=== PATIENT | female | born 1950 | race American Indian/Alaskan Native ===

== ENCOUNTER 2017-08-10 17:07 | Inpatient (IN) | payer MEDICARE ==
[2017-08-10 19:42] LABS: Hematocrit 40.4 % (30.3-42.9); Hemoglobin 13.1 gm/dl (10.1-14.3); Mean Corpuscular HGB Conc 32 % (30-34); Mean Corpuscular Hemoglobin 28 pg (28-32); Mean Corpuscular Volume 86 fl (79-97); Platelet Count 275 K/mm3 (140-440); Red Blood Count 4.69 M/mm3 (3.65-5.03); Red Cell Distribution Width 13.5 % (13.2-15.2)
[2017-08-10 19:53] LABS: Alanine Aminotransferase 13 units/L (7-56); Albumin 3.8 g/dL (3.9-5); BUN/Creatinine Ratio 18; Blood Urea Nitrogen 11 mg/dL (7-17); Calcium 8.9 mg/dL (8.4-10.2); Hemolysis Index 10
[2017-08-10 20:03] LABS: Creatine Kinase MB 2.2 ng/mL (0.0-4.0)
[2017-08-10 20:11] LABS: Free T4 (Free Thyroxine) 2.05 ng/dL (0.76-1.46)
--- NOTE | 2017-08-10 20:13 | Cat Scan Report ---
FINAL REPORT EXAM: CT HEAD/BRAIN WO CON HISTORY: AMS TECHNIQUE: Standard unenhanced CT of the head at 5.0 millimeter axial increments PRIORS: None. FINDINGS: The ventricular system is normal in size and configuration. There is no evidence for parenchymal volume loss. There is no evidence for mass lesion, mass effect, midline shift, acute intracranial hemorrhage, or acute ischemia/ infarction. Visualized paranasal sinuses demonstrates opacification of several right ethmoid air cells. IMPRESSION: No acute intracranial process noted.
--- NOTE | 2017-08-10 20:33 | Emergency Department Report ---
ED Altered Mental Status HPI - General Chief Complaint: Altered Mental Status Stated Complaint: AMS Time Seen by Provider: 08/10/17 19:26 Source: EMS Mode of arrival: Stretcher Limitations: No Limitations - History of Present Illness Initial Comments: 66 year-old female unknown past medical history presents to the hospital via EMS for alteration in mental status. Patient has been nonverbal since yesterday. EMS obtained history from the scene. Family reports that patient is normally alert and oriented 3 and has been altered since yesterday. Patient unable to provide any further history of present illness due to agitation and the fact that she is not speaking. Family is not present in the ED and there is not a working phone number on the demographic sheet. blood glucose 100 - Related Data Allergies Allergy/AdvReac Type Severity Reaction Status Date / Time No Known Allergies Allergy Unverified 08/10/17 18:27 ED Review of Systems ROS: Stated complaint: AMS Other details as noted in HPI Comment: Unobtainable due to pts medical conditions ED Past Medical Hx - Social History Smoking Status: Unknown if ever smoked ED Physical Exam - General Limitations: No Limitations - Other Other exam information: General: Altered Head exam: Atraumatic, normocephalic Eyes exam: Normal appearance ENT: Dry mucous membranes Neck exam: Normal inspection, full range of motion, no meningismus nontender Respiratory exam: Clear to auscultation bilateral, no wheezes, rales, crackles Cardiovascular: Normal rate and rhythm, normal heart sounds Abdomen: Soft, nondistended, and nontender, with normal bowel sounds, no rebound, or guarding Extremity: Full range of motion normal inspection no deformity Back: Normal Inspection, full range of motion, no tenderness Neurologic: Patient holds eyes closed, will not speak, would not reliably follow commands. Moves all extremities equally without focal deficits. Sensation grossly intact. Psychiatric: Patient seen to be mouthing words to himself but not making any noise. Positive agitation and mild restlessness. Positive facial grimace. Skin: Warm, dry, intact ED Course Vital Signs 08/10/17 19:28 Temperature 98.9 F Pulse Rate 76 Respiratory 18 Rate Blood Pressure 156/94 [Left] O2 Sat by Pulse 99 Oximetry - Lab Data Result diagrams: 08/10/17 19:18 08/10/17 19:18 Lab Results 02/13/18 02/13/18 02/13/18 Range/Units 19:18 19:18 19:18 WBC 4.9 (4.5-11.0) K/mm3 RBC 4.69 (3.65-5.03) M/mm3 Hgb 13.1 (10.1-14.3) gm/dl Hct 40.4 (30.3-42.9) % MCV 86 (79-97) fl MCH 28 (28-32) pg MCHC 32 (30-34) % RDW 13.5 (13.2-15.2) % Plt Count 275 (140-440) K/mm3 [place] % (Auto) Sausage Stuffer Sodium 142 (137-145) mmol/L Potassium 3.4 L (3.6-5.0) mmol/L Chloride 102.8 (98-107) mmol/L Carbon Dioxide 24 (22-30) mmol/L Anion Gap 19 mmol/L BUN 11 (7-17) mg/dL Creatinine 0.6 L (0.7-1.2) mg/dL Estimated GFR > 60 ml/min BUN/Creatinine Ratio 18 % Glucose 109 H (65-100) mg/dL Calcium 8.9 (8.4-10.2) mg/dL Magnesium (1.7-2.3) mg/dL Total Bilirubin 0.50 (0.1-1.2) mg/dL AST 20 (5-40) units/L ALT 13 (7-56) units/L Alkaline Phosphatase 67 (35-129) units/L Ammonia (25-60) umol/L Total Creatine Kinase (30-135) units/L CK-MB (CK-2) (0.0-4.0) ng/mL CK-MB (CK-2) Rel Index (0-4) Troponin T (0.00-0.029) ng/mL Total Protein 7.2 (6.3-8.2) g/dL Albumin 3.8 L (3.9-5) g/dL Albumin/Globulin Ratio 1.1 % TSH (0.270-4.200) mlU/mL Free T4 (0.76-1.46) ng/dL Urine Color (Yellow) Urine Turbidity (Clear) Urine pH (5.0-7.0) Ur Specific [place] (1.003-1.030) Urine Protein (Negative) mg/dL Urine Glucose (UA) (Negative) mg/dL Urine Ketones (Negative) mg/dL Urine Blood (Negative) Urine Nitrite (Negative) Urine Bilirubin (Negative) Urine Urobilinogen (<2.0) mg/dL Ur Leukocyte Esterase (Negative) Urine WBC (Auto) (0.0-6.0) /HPF Urine RBC (Auto) (0.0-6.0) /HPF Urine Mucus /HPF Salicylates (2.8-20.0) mg/dL Urine Opiates Screen Urine Methadone Screen Acetaminophen (10.0-30.0) ug/mL Ur Barbiturates Screen Ur Phencyclidine Scrn Ur Amphetamines Screen U Benzodiazepines Scrn Urine Cocaine Screen U Marijuana (THC) Screen Drugs of Abuse Note Plasma/Serum Alcohol < 0.01 (0-0.07) % 08/10/17 08/10/17 08/10/17 Range/Units 19:24 19:24 19:24 WBC (4.5-11.0) K/mm3 RBC (3.65-5.03) M/mm3 Hgb (10.1-14.3) gm/dl Hct (30.3-42.9) % MCV (79-97) fl MCH (28-32) pg MCHC (30-34) % RDW (13.2-15.2) % Plt Count (140-440) K/mm3 [place] % (Auto) Sodium (137-145) mmol/L Potassium (3.6-5.0) mmol/L Chloride (98-107) mmol/L Carbon Dioxide (22-30) mmol/L Anion Gap mmol/L BUN (7-17) mg/dL Creatinine (0.7-1.2) mg/dL Estimated GFR ml/min BUN/Creatinine Ratio % Glucose (65-100) mg/dL Calcium (8.4-10.2) mg/dL Magnesium (1.7-2.3) mg/dL Total Bilirubin (0.1-1.2) mg/dL AST (5-40) units/L ALT (7-56) units/L Alkaline Phosphatase (35-129) units/L Ammonia 39.0 (25-60) umol/L Total Creatine Kinase (30-135) units/L CK-MB (CK-2) (0.0-4.0) ng/mL CK-MB (CK-2) Rel Index (0-4) Troponin T (0.00-0.029) ng/mL Total Protein (6.3-8.2) g/dL Albumin (3.9-5) g/dL Albumin/Globulin Ratio % TSH 2.690 (0.270-4.200) mlU/mL Free T4 2.05 H (0.76-1.46) ng/dL Urine Color (Yellow) Urine Turbidity (Clear) Urine pH (5.0-7.0) Ur Specific [place] (1.003-1.030) Urine Protein (Negative) mg/dL Urine Glucose (UA) (Negative) mg/dL Urine Ketones (Negative) mg/dL Urine Blood (Negative) Urine Nitrite (Negative) Urine Bilirubin (Negative) Urine Urobilinogen (<2.0) mg/dL Ur Leukocyte Esterase (Negative) Urine WBC (Auto) (0.0-6.0) /HPF Urine RBC (Auto) (0.0-6.0) /HPF Urine Mucus /HPF Salicylates < 0.3 L (2.8-20.0) mg/dL Urine Opiates Screen Urine Methadone Screen Acetaminophen (10.0-30.0) ug/mL Ur Barbiturates Screen Ur Phencyclidine Scrn Ur Amphetamines Screen U Benzodiazepines Scrn Urine Cocaine Screen U Marijuana (THC) Screen Drugs of Abuse Note Plasma/Serum Alcohol (0-0.07) % 08/10/17 08/10/17 08/10/17 Range/Units 19:24 19:24 19:30 WBC (4.5-11.0) K/mm3 RBC (3.65-5.03) M/mm3 Hgb (10.1-14.3) gm/dl Hct (30.3-42.9) % MCV (79-97) fl MCH (28-32) pg MCHC (30-34) % RDW (13.2-15.2) % Plt Count (140-440) K/mm3 [place] % (Auto) Sodium (137-145) mmol/L Potassium (3.6-5.0) mmol/L Chloride (98-107) mmol/L Carbon Dioxide (22-30) mmol/L Anion Gap mmol/L BUN (7-17) mg/dL Creatinine (0.7-1.2) mg/dL Estimated GFR ml/min BUN/Creatinine Ratio % Glucose (65-100) mg/dL Calcium (8.4-10.2) mg/dL Magnesium 2.30 (1.7-2.3) mg/dL Total Bilirubin (0.1-1.2) mg/dL AST (5-40) units/L ALT (7-56) units/L Alkaline Phosphatase (35-129) units/L Ammonia (25-60) umol/L Total Creatine Kinase 119 (30-135) units/L CK-MB (CK-2) 2.2 (0.0-4.0) ng/mL CK-MB (CK-2) Rel Index 1.8 (0-4) Troponin T < 0.010 (0.00-0.029) ng/mL Total Protein (6.3-8.2) g/dL Albumin (3.9-5) g/dL Albumin/Globulin Ratio % TSH (0.270-4.200) mlU/mL Free T4 (0.76-1.46) ng/dL Urine Color (Yellow) Urine Turbidity (Clear) Urine pH (5.0-7.0) Ur Specific [place] (1.003-1.030) Urine Protein (Negative) mg/dL Urine Glucose (UA) (Negative) mg/dL Urine Ketones (Negative) mg/dL Urine Blood (Negative) Urine Nitrite (Negative) Urine Bilirubin (Negative) Urine Urobilinogen (<2.0) mg/dL Ur Leukocyte Esterase (Negative) Urine WBC (Auto) (0.0-6.0) /HPF Urine RBC (Auto) (0.0-6.0) /HPF Urine Mucus /HPF Salicylates (2.8-20.0) mg/dL Urine Opiates Screen Urine Methadone Screen Acetaminophen < 15.0 (10.0-30.0) ug/mL Ur Barbiturates Screen Ur Phencyclidine Scrn Ur Amphetamines Screen U Benzodiazepines Scrn Urine Cocaine Screen U Marijuana (THC) Screen Drugs of Abuse Note Plasma/Serum Alcohol (0-0.07) % 08/10/17 08/10/17 Range/Units 20:42 20:42 WBC (4.5-11.0) K/mm3 RBC (3.65-5.03) M/mm3 Hgb (10.1-14.3) gm/dl Hct (30.3-42.9) % MCV (79-97) fl MCH (28-32) pg MCHC (30-34) % RDW (13.2-15.2) % Plt Count (140-440) K/mm3 [place] % (Auto) Sodium (137-145) mmol/L Potassium (3.6-5.0) mmol/L Chloride (98-107) mmol/L Carbon Dioxide (22-30) mmol/L Anion Gap mmol/L BUN (7-17) mg/dL Creatinine (0.7-1.2) mg/dL Estimated GFR ml/min BUN/Creatinine Ratio % Glucose (65-100) mg/dL Calcium (8.4-10.2) mg/dL Magnesium (1.7-2.3) mg/dL Total Bilirubin (0.1-1.2) mg/dL AST (5-40) units/L ALT (7-56) units/L Alkaline Phosphatase (35-129) units/L Ammonia (25-60) umol/L Total Creatine Kinase (30-135) units/L CK-MB (CK-2) (0.0-4.0) ng/mL CK-MB (CK-2) Rel Index (0-4) Troponin T (0.00-0.029) ng/mL Total Protein (6.3-8.2) g/dL Albumin (3.9-5) g/dL Albumin/Globulin Ratio % TSH (0.270-4.200) mlU/mL Free T4 (0.76-1.46) ng/dL Urine Color Yellow (Yellow) Urine Turbidity Clear (Clear) Urine pH 7.0 (5.0-7.0) Ur Specific [place] 1.019 (1.003-1.030) Urine Protein 100 mg/dl (Negative) mg/dL Urine Glucose (UA) Neg (Negative) mg/dL Urine Ketones 20 (Negative) mg/dL Urine Blood Neg (Negative) Urine Nitrite Neg (Negative) Urine Bilirubin Neg (Negative) Urine Urobilinogen < 2.0 (<2.0) mg/dL Ur Leukocyte Esterase Neg (Negative) Urine WBC (Auto) 2.0 (0.0-6.0) /HPF Urine RBC (Auto) 7.0 (0.0-6.0) /HPF Urine Mucus 3+ /HPF Salicylates (2.8-20.0) mg/dL Urine Opiates Screen Presumptive negative Urine Methadone Screen Presumptive negative Acetaminophen (10.0-30.0) ug/mL Ur Barbiturates Screen Presumptive negative Ur Phencyclidine Scrn Presumptive negative Ur Amphetamines Screen Presumptive negative U Benzodiazepines Scrn Presumptive negative Urine Cocaine Screen Presumptive negative U Marijuana (THC) Screen Presumptive negative Drugs of Abuse Note Disclamer Plasma/Serum Alcohol (0-0.07) % - Radiology Data Radiology results: report reviewed (ct head: naf) - Medical Decision Making Patient presented like a demented patient. Per EMS family assisted the patient was alert and oriented 3 at baseline. Initial ED workup unremarkable without acute cause of alteration in mental status. I am unable to contact family at this time due to incorrect phone number on demographic sheet. She have to be admitted at this time for presumed alteration in mental status IV potassium order for mild hypokalemia Patient likely has mild dehydration as indicated by elevated specific gravity and ketones in urine - Differential Diagnosis dementia, delirium, encephalopathy, infection, CVA Critical Care Time: No Critical care attestation.: If time is entered above; I have spent that time in minutes in the direct care of this critically ill patient, excluding procedure time. ED Disposition Clinical Impression: Altered mental status, Hypokalemia Disposition: 09 OP ADMIT IP TO THIS HOSP Is pt being admited?: Yes Condition: Stable Time of Disposition: 21:24 (Dr Reis/hosp)
[2017-08-10 21:08] LABS: Bilirubin,Urine NEG (Negative); Blood,Urine NEG (Negative); Color,Urine Yellow (Yellow); Mucus,Urine 3+ /HPF; Urobilinogen,Urine < 2.0 mg/dL (<2.0)
[2017-08-10 21:19] LABS: Amphetamine Screen,Urine PRESUMPTIVE NEGATIVE; Benzodiazepines Screen,Urine PRESUMPTIVE NEGATIVE; Cannabinoid Screen,Urine PRESUMPTIVE NEGATIVE; Cocaine Screen,Urine PRESUMPTIVE NEGATIVE; Methadone Screen,Urine PRESUMPTIVE NEGATIVE; Opiate Screen,Urine PRESUMPTIVE NEGATIVE
[2017-08-10 21:33] LABS: Basophils % (Manual) 0 % (0.0-1.8); Eosinophils % (Manual) 0 % (0.0-4.3); Platelet Estimate Consistent w Auto; Total Cells Counted 100
[2017-08-10] MEDS ORDERED: ZOFRAN IV PRN (22:27)
[2017-08-10] MEDS ORDERED: DULCOLAX PR PRN (22:27)
[2017-08-10] MEDS ORDERED: MILK OF MAGNESIA PO PRN (22:27)
--- NOTE | 2017-08-10 22:27 | History and Physical Report ---
History of Present Illness Date of examination: 08/10/17 History of present illness: 66 year-old lady with a history of catatonia was brought to the emergency room because she is not eating since yesterday. Patient is nonverbal, history is per the caregiver. Review of systems unobtainable PAST MEDICAL HISTORY:catonia PAST SURGICAL HISTORY: none FAMILY HISTORY:hypertension SOCIAL HISTORY: Denies alcohol, tobacco, drugs Medications and Allergies Allergies Allergy/AdvReac Type Severity Reaction Status Date / Time No Known Allergies Allergy Unverified 08/10/17 18:27 Home Medications Medication Instructions Recorded Confirmed Last Taken Type No Known Home Medications [No 08/11/17 08/11/17 Unknown History Reported Home Medications] Active Meds: Active Medications Potassium Chloride (Kcl 10meq/100ml) 10 meq in 100 mls @ 100 mls/hr IV Q1H ELIEL Stop: 08/10/17 23:59 Potassium Chloride 10 meq/ (Sodium Chloride) 105 mls @ 105 mls/hr IV Q1H ELIEL Stop: 08/10/17 23:59 Exam - Physical Exam Narrative exam: Gen. appearance: Patient lying in bed, no apparent distress HEENT: Normocephalic, atraumatic, pupils equally round and reactive to light, extraocular movement intact, and no sclericterus,. No JVD or thyromegaly or nodule,neck supple, no carotid bruit ,mucous membranes moist, no exudate or erythema Heart: S1, S2, regular rate and rhythm Lungs: Clear to auscultation bilaterally, breathing comfortable Abdomen: Positive bowel sounds, nontender, nondistended, no organomegaly Extremity: No edema, cyanosis, clubbing Skin: No rash, nodules, warm, dry Neuro: Difficult to assess - Constitutional Vitals: Temp Pulse Resp BP Pulse Ox 98.9 F 76 18 156/94 99 08/10/17 19:28 08/10/17 19:28 08/10/17 19:28 08/10/17 19:28 08/10/17 19:28 Results - Labs CBC & Chem 7: 08/18/17 04:23 08/18/17 04:23 Labs: Abnormal lab results 08/10/17 08/10/17 08/10/17 Range/Units 19:18 19:18 19:24 Monocytes % (Manual) 9.0 H (0.0-7.3) % Potassium 3.4 L (3.6-5.0) mmol/L Creatinine 0.6 L (0.7-1.2) mg/dL Glucose 109 H (65-100) mg/dL Albumin 3.8 L (3.9-5) g/dL Free T4 2.05 H (0.76-1.46) ng/dL Salicylates (2.8-20.0) mg/dL 08/10/17 Range/Units 19:24 Monocytes % (Manual) (0.0-7.3) % Potassium (3.6-5.0) mmol/L Creatinine (0.7-1.2) mg/dL Glucose (65-100) mg/dL Albumin (3.9-5) g/dL Free T4 (0.76-1.46) ng/dL Salicylates < 0.3 L (2.8-20.0) mg/dL - Imaging and Cardiology CT Scan - head: report reviewed Assessment and Plan Assessment Failure to thrive Hypokalemia [place]at[place] Plan Admit to medicine Start IV fluids, encourage oral intake, DVT prophylaxis Replete potassium
[2017-08-10] MEDS: KCL 10 MEQ in NACL 0.9% 100 ML IV SCH (23:12)
[2017-08-11] MEDS: KCL 10MEQ/100ML 10 MEQ/100 ML BAG IV SCH ×2 (01:41→01:46)
[2017-08-11] MEDS: KCL 10 MEQ in NACL 0.9% 100 ML IV SCH (01:43)
[2017-08-11] MEDS ORDERED: KCL 20 MEQ in NACL 0.9% 250ML 250 ML IV ONE (02:00)
[2017-08-11] MEDS ORDERED: KCL 10MEQ/100ML 10 MEQ/100 ML BAG IV SCH (02:00)
[2017-08-11] MEDS: NACL 0.9% 1000 ML 1,000 ML IV SCH ×2 (02:32→17:59)
[2017-08-11 05:19] LABS: Basophils % (Auto) 0.2 % (0.0-1.8); Eosinophils % (Auto) 0.3 % (0.0-4.3); Hematocrit 39.6 % (30.3-42.9); Hemoglobin 13.1 gm/dl (10.1-14.3); Lymphocytes # (Auto) 1.7 K/mm3 (1.2-5.4); Lymphocytes % (Auto) 27.9 % (13.4-35.0); Mean Corpuscular HGB Conc 33 % (30-34); Mean Corpuscular Hemoglobin 29 pg (28-32); Mean Corpuscular Volume 87 fl (79-97); Monocytes # (Auto) 0.9 K/mm3 (0.0-0.8); Platelet Count 279 K/mm3 (140-440); Red Blood Count 4.58 M/mm3 (3.65-5.03); Red Cell Distribution Width 13.7 % (13.2-15.2)
[2017-08-11 05:37] LABS: BUN/Creatinine Ratio 13; Blood Urea Nitrogen 9 mg/dL (7-17); Calcium 8.5 mg/dL (8.4-10.2); Hemolysis Index 18
[2017-08-11] MEDS: LOVENOX SUB-Q SCH (11:57)
[2017-08-11] MEDS ORDERED: PNEUMOVAX 23 IM ONE (12:00)
[2017-08-11] MEDS ORDERED: Fluarix Quad 2017-2018(36 MOS+ IM ONE (12:00)
--- NOTE | 2017-08-11 15:53 | Progress Note ---
<KYLE LOPEZ - Last Filed: 08/11/17 15:39> Assessment and Plan Assessment and plan: 66 year old AA woman brought to the emergency department due to change in mental status. She lives with her sister and niece, who states that she started having loud conversations by herself and wanted her to be evaluated. She was a patient at [facility] but was discharged around February 2017. Family is unsure of mental health diagnoses or medications which she has not been taking. Records requested. Acute encephalopathy/ psychosis?? etiology unknown, mental health records requested Hypokalemia Replenished, Now resolved Mild protein malnutrition consult to bail bonding agent DVT prophylaxis Lovenox History Interval history: Patient seen and examined with sister and niece at bedside. She is confused and having hallucinatory conversations. She appears to be in no acute distress. Labs and nursing notes reviewed. Hospitalist Physical - Constitutional Vitals: Temp Pulse Resp BP Pulse Ox 98.9 F 78 18 143/85 96 08/11/17 03:54 08/11/17 03:54 08/11/17 03:54 08/11/17 03:54 08/11/17 12:00 General appearance: Present: no acute distress, well-nourished - EENT Eyes: Present: PERRL, EOM intact ENT: hearing intact, clear oral mucosa - Neck Neck: Present: supple, normal ROM - Respiratory Respiratory effort: normal - Cardiovascular Rhythm: regular Heart Sounds: Present: S1 & S2 - Extremities Extremities: no ischemia, No edema - Abdominal General gastrointestinal: soft, non-tender, non-distended - Integumentary Integumentary: Present: clear, warm, dry - Psychiatric Psychiatric: no appropriate mood/affect, no intact judgment & insight, cooperative - Neurologic Neurologic: CNII-XII intact, moves all extremities - Allied Health Allied health notes reviewed: nursing Results - Labs CBC & Chem 7: 08/11/17 04:35 08/11/17 04:35 Labs: Laboratory Last Values WBC 6.2 K/mm3 (4.5-11.0) 08/11/17 04:35 RBC 4.58 M/mm3 (3.65-5.03) 08/11/17 04:35 Hgb 13.1 gm/dl (10.1-14.3) 08/11/17 04:35 Hct 39.6 % (30.3-42.9) 08/11/17 04:35 MCV 87 fl (79-97) 08/11/17 04:35 MCH 29 pg (28-32) 08/11/17 04:35 MCHC 33 % (30-34) 08/11/17 04:35 RDW 13.7 % (13.2-15.2) 08/11/17 04:35 Plt Count 279 K/mm3 (140-440) 08/11/17 04:35 Lymph % (Auto) 27.9 % (13.4-35.0) 08/11/17 04:35 [place] % (Auto) 15.0 % (0.0-7.3) H 08/11/17 04:35 Eos % (Auto) 0.3 % (0.0-4.3) 08/11/17 04:35 Baso % (Auto) 0.2 % (0.0-1.8) 08/11/17 04:35 Lymph # 1.7 K/mm3 (1.2-5.4) 08/11/17 04:35 [place] # 0.9 K/mm3 (0.0-0.8) H 08/11/17 04:35 Eos # 0.0 K/mm3 (0.0-0.4) 08/11/17 04:35 Baso # 0.0 K/mm3 (0.0-0.1) 08/11/17 04:35 Add Manual Diff Complete 08/10/17 19:18 Total Counted 100 08/10/17 19:18 Seg Neutrophils % 56.6 % (40.0-70.0) 08/11/17 04:35 Seg Neuts % (Manual) 55.0 % (40.0-70.0) 08/10/17 19:18 Band Neutrophils % 1.0 % 08/10/17 19:18 Lymphocytes % (Manual) 35.0 % (13.4-35.0) 08/10/17 19:18 Reactive Lymphs % (Man) 0 % 08/10/17 19:18 Monocytes % (Manual) 9.0 % (0.0-7.3) H 08/10/17 19:18 Eosinophils % (Manual) 0 % (0.0-4.3) 08/10/17 19:18 Basophils % (Manual) 0 % (0.0-1.8) 08/10/17 19:18 Metamyelocytes % 0 % 08/10/17 19:18 Myelocytes % 0 % 08/10/17 19:18 Promyelocytes % 0 % 08/10/17 19:18 Blast Cells % 0 % 08/10/17 19:18 Nucleated RBC % Not Reportable 08/10/17 19:18 Seg Neutrophils # 3.5 K/mm3 (1.8-7.7) 08/11/17 04:35 Seg Neutrophils # Man 2.7 K/mm3 (1.8-7.7) 08/10/17 19:18 Band Neutrophils # 0.0 K/mm3 08/10/17 19:18 Lymphocytes # (Manual) 1.7 K/mm3 (1.2-5.4) 08/10/17 19:18 Abs React Lymphs (Man) 0.0 K/mm3 08/10/17 19:18 Monocytes # (Manual) 0.4 K/mm3 (0.0-0.8) 08/10/17 19:18 Eosinophils # (Manual) 0.0 K/mm3 (0.0-0.4) 08/10/17 19:18 Basophils # (Manual) 0.0 K/mm3 (0.0-0.1) 08/10/17 19:18 Metamyelocytes # 0.0 K/mm3 08/10/17 19:18 Myelocytes # 0.0 K/mm3 08/10/17 19:18 Promyelocytes # 0.0 K/mm3 08/10/17 19:18 Blast Cells # 0.0 K/mm3 08/10/17 19:18 WBC Morphology Not Reportable 08/10/17 19:18 Hypersegmented Neuts Not Reportable 08/10/17 19:18 Hyposegmented Neuts Not Reportable 08/10/17 19:18 Hypogranular Neuts Not Reportable 08/10/17 19:18 Smudge Cells Not Reportable 08/10/17 19:18 Toxic Granulation Not Reportable 08/10/17 19:18 Toxic Vacuolation Not Reportable 08/10/17 19:18 Dohle Bodies Not Reportable 08/10/17 19:18 Pelger-Huet Anomaly Not Reportable 08/10/17 19:18 Comfort Rods Not Reportable 08/10/17 19:18 Platelet Estimate Consistent w auto 08/10/17 19:18 Clumped Platelets Not Reportable 08/10/17 19:18 Plt Clumps, EDTA Not Reportable 08/10/17 19:18 Large Platelets Not Reportable 08/10/17 19:18 Giant Platelets Not Reportable 08/10/17 19:18 Platelet Satelliting Not Reportable 08/10/17 19:18 Plt Morphology Comment Not Reportable 08/10/17 19:18 RBC Morphology Not Reportable 08/10/17 19:18 Dimorphic RBCs Not Reportable 08/10/17 19:18 Polychromasia Not Reportable 08/10/17 19:18 Hypochromasia Not Reportable 08/10/17 19:18 Poikilocytosis Not Reportable 08/10/17 19:18 Anisocytosis Not Reportable 08/10/17 19:18 Microcytosis Not Reportable 08/10/17 19:18 Macrocytosis Not Reportable 08/10/17 19:18 Spherocytes Not Reportable 08/10/17 19:18 Pappenheimer Bodies Not Reportable 08/10/17 19:18 Sickle Cells Not Reportable 08/10/17 19:18 Target Cells Not Reportable 08/10/17 19:18 Tear Drop Cells Not Reportable 08/10/17 19:18 Ovalocytes Not Reportable 08/10/17 19:18 Helmet Cells Not Reportable 08/10/17 19:18 [place] Bodies Not Reportable 08/10/17 19:18 [place] Rings Not Reportable 08/10/17 19:18 Nallely Cells Not Reportable 08/10/17 19:18 Bite Cells Not Reportable 08/10/17 19:18 Crenated Cell Not Reportable 08/10/17 19:18 Elliptocytes Not Reportable 08/10/17 19:18 Acanthocytes (Spur) Not Reportable 08/10/17 19:18 Rouleaux Not Reportable 08/10/17 19:18 Hemoglobin C Crystals Not Reportable 08/10/17 19:18 Schistocytes Not Reportable 08/10/17 19:18 Malaria parasites Not Reportable 08/10/17 19:18 Joaquín Bodies Not Reportable 08/10/17 19:18 Hem Pathologist Commnt No 08/10/17 19:18 Sodium 145 mmol/L (137-145) 08/11/17 04:35 Potassium 4.9 mmol/L (3.6-5.0) D 08/11/17 04:35 Chloride 107.7 mmol/L (98-107) H 08/11/17 04:35 Carbon Dioxide 22 mmol/L (22-30) 08/11/17 04:35 Anion Gap 20 mmol/L 08/11/17 04:35 BUN 9 mg/dL (7-17) 08/11/17 04:35 Creatinine 0.7 mg/dL (0.7-1.2) 08/11/17 04:35 Estimated GFR > 60 ml/min 08/11/17 04:35 BUN/Creatinine Ratio 13 % 08/11/17 04:35 Glucose 107 mg/dL (65-100) H 08/11/17 04:35 Calcium 8.5 mg/dL (8.4-10.2) 08/11/17 04:35 Magnesium 2.30 mg/dL (1.7-2.3) 08/10/17 19:30 Total Bilirubin 0.50 mg/dL (0.1-1.2) 08/10/17 19:18 AST 20 units/L (5-40) 08/10/17 19:18 ALT 13 units/L (7-56) 08/10/17 19:18 Alkaline Phosphatase 67 units/L (35-129) 08/10/17 19:18 Ammonia 39.0 umol/L (25-60) 08/10/17 19:24 Total Creatine Kinase 119 units/L (30-135) 08/10/17 19:24 CK-MB (CK-2) 2.2 ng/mL (0.0-4.0) 08/10/17 19:24 CK-MB (CK-2) Rel Index 1.8 (0-4) 08/10/17 19:24 Troponin T < 0.010 ng/mL (0.00-0.029) 08/10/17 19:24 Total Protein 7.2 g/dL (6.3-8.2) 08/10/17 19:18 Albumin 3.8 g/dL (3.9-5) L 08/10/17 19:18 Albumin/Globulin Ratio 1.1 % 08/10/17 19:18 TSH 2.690 mlU/mL (0.270-4.200) 08/10/17 19:24 Free T4 2.05 ng/dL (0.76-1.46) H 08/10/17 19:24 Urine Color Yellow (Yellow) 08/10/17 20:42 Urine Turbidity Clear (Clear) 08/10/17 20:42 Urine pH 7.0 (5.0-7.0) 08/10/17 20:42 Ur Specific [place] 1.019 (1.003-1.030) 08/10/17 20:42 Urine Protein 100 mg/dl mg/dL (Negative) 08/10/17 20:42 Urine Glucose (UA) Neg mg/dL (Negative) 08/10/17 20:42 Urine Ketones 20 mg/dL (Negative) 08/10/17 20:42 Urine Blood Neg (Negative) 08/10/17 20:42 Urine Nitrite Neg (Negative) 08/10/17 20:42 Urine Bilirubin Neg (Negative) 08/10/17 20:42 Urine Urobilinogen < 2.0 mg/dL (<2.0) 08/10/17 20:42 Ur Leukocyte Esterase Neg (Negative) 08/10/17 20:42 Urine WBC (Auto) 2.0 /HPF (0.0-6.0) 08/10/17 20:42 Urine RBC (Auto) 7.0 /HPF (0.0-6.0) 08/10/17 20:42 Urine Mucus 3+ /HPF 08/10/17 20:42 Salicylates < 0.3 mg/dL (2.8-20.0) L 08/10/17 19:24 Urine Opiates Screen Presumptive negative 08/10/17 20:42 Urine Methadone Screen Presumptive negative 08/10/17 20:42 Acetaminophen < 15.0 ug/mL (10.0-30.0) 08/10/17 19:24 Ur Barbiturates Screen Presumptive negative 08/10/17 20:42 Ur Phencyclidine Scrn Presumptive negative 08/10/17 20:42 Ur Amphetamines Screen Presumptive negative 08/10/17 20:42 U Benzodiazepines Scrn Presumptive negative 08/10/17 20:42 Urine Cocaine Screen Presumptive negative 08/10/17 20:42 U Marijuana (THC) Screen Presumptive negative 08/10/17 20:42 Drugs of Abuse Note Disclamer 08/10/17 20:42 Plasma/Serum Alcohol < 0.01 % (0-0.07) 08/10/17 19:18 <OPAL LESTER M - Last Filed: 08/12/17 16:01> Assessment and Plan Assessment and plan: I saw and evaluated the patient. I agree with the findings and the plan of care as documented in the PA's note. Hospitalist Physical - Constitutional Vitals: Temp Pulse Resp BP Pulse Ox 99.4 F 96 H 20 150/79 96 08/12/17 14:00 08/12/17 14:00 08/12/17 14:00 08/12/17 14:00 08/12/17 14:00 Results - Labs CBC & Chem 7: 08/11/17 04:35 08/11/17 04:35 Labs: Laboratory Last Values WBC 6.2 K/mm3 (4.5-11.0) 08/11/17 04:35 RBC 4.58 M/mm3 (3.65-5.03) 08/11/17 04:35 Hgb 13.1 gm/dl (10.1-14.3) 08/11/17 04:35 Hct 39.6 % (30.3-42.9) 08/11/17 04:35 MCV 87 fl (79-97) 08/11/17 04:35 MCH 29 pg (28-32) 08/11/17 04:35 MCHC 33 % (30-34) 08/11/17 04:35 RDW 13.7 % (13.2-15.2) 08/11/17 04:35 Plt Count 279 K/mm3 (140-440) 08/11/17 04:35 Lymph % (Auto) 27.9 % (13.4-35.0) 08/11/17 04:35 [place] % (Auto) 15.0 % (0.0-7.3) H 08/11/17 04:35 Eos % (Auto) 0.3 % (0.0-4.3) 08/11/17 04:35 Baso % (Auto) 0.2 % (0.0-1.8) 08/11/17 04:35 Lymph # 1.7 K/mm3 (1.2-5.4) 08/11/17 04:35 [place] # 0.9 K/mm3 (0.0-0.8) H 08/11/17 04:35 Eos # 0.0 K/mm3 (0.0-0.4) 08/11/17 04:35 Baso # 0.0 K/mm3 (0.0-0.1) 08/11/17 04:35 Add Manual Diff Complete 08/10/17 19:18 Total Counted 100 08/10/17 19:18 Seg Neutrophils % 56.6 % (40.0-70.0) 08/11/17 04:35 Seg Neuts % (Manual) 55.0 % (40.0-70.0) 08/10/17 19:18 Band Neutrophils % 1.0 % 08/10/17 19:18 Lymphocytes % (Manual) 35.0 % (13.4-35.0) 08/10/17 19:18 Reactive Lymphs % (Man) 0 % 08/10/17 19:18 Monocytes % (Manual) 9.0 % (0.0-7.3) H 08/10/17 19:18 Eosinophils % (Manual) 0 % (0.0-4.3) 08/10/17 19:18 Basophils % (Manual) 0 % (0.0-1.8) 08/10/17 19:18 Metamyelocytes % 0 % 08/10/17 19:18 Myelocytes % 0 % 08/10/17 19:18 Promyelocytes % 0 % 08/10/17 19:18 Blast Cells % 0 % 08/10/17 19:18 Nucleated RBC % Not Reportable 08/10/17 19:18 Seg Neutrophils # 3.5 K/mm3 (1.8-7.7) 08/11/17 04:35 Seg Neutrophils # Man 2.7 K/mm3 (1.8-7.7) 08/10/17 19:18 Band Neutrophils # 0.0 K/mm3 08/10/17 19:18 Lymphocytes # (Manual) 1.7 K/mm3 (1.2-5.4) 08/10/17 19:18 Abs React Lymphs (Man) 0.0 K/mm3 08/10/17 19:18 Monocytes # (Manual) 0.4 K/mm3 (0.0-0.8) 08/10/17 19:18 Eosinophils # (Manual) 0.0 K/mm3 (0.0-0.4) 08/10/17 19:18 Basophils # (Manual) 0.0 K/mm3 (0.0-0.1) 08/10/17 19:18 Metamyelocytes # 0.0 K/mm3 08/10/17 19:18 Myelocytes # 0.0 K/mm3 08/10/17 19:18 Promyelocytes # 0.0 K/mm3 08/10/17 19:18 Blast Cells # 0.0 K/mm3 08/10/17 19:18 WBC Morphology Not Reportable 08/10/17 19:18 Hypersegmented Neuts Not Reportable 08/10/17 19:18 Hyposegmented Neuts Not Reportable 08/10/17 19:18 Hypogranular Neuts Not Reportable 08/10/17 19:18 Smudge Cells Not Reportable 08/10/17 19:18 Toxic Granulation Not Reportable 08/10/17 19:18 Toxic Vacuolation Not Reportable 08/10/17 19:18 Dohle Bodies Not Reportable 08/10/17 19:18 Pelger-Huet Anomaly Not Reportable 08/10/17 19:18 Comfort Rods Not Reportable 08/10/17 19:18 Platelet Estimate Consistent w auto 08/10/17 19:18 Clumped Platelets Not Reportable 08/10/17 19:18 Plt Clumps, EDTA Not Reportable 08/10/17 19:18 Large Platelets Not Reportable 08/10/17 19:18 Giant Platelets Not Reportable 08/10/17 19:18 Platelet Satelliting Not Reportable 08/10/17 19:18 Plt Morphology Comment Not Reportable 08/10/17 19:18 RBC Morphology Not Reportable 08/10/17 19:18 Dimorphic RBCs Not Reportable 08/10/17 19:18 Polychromasia Not Reportable 08/10/17 19:18 Hypochromasia Not Reportable 08/10/17 19:18 Poikilocytosis Not Reportable 08/10/17 19:18 Anisocytosis Not Reportable 08/10/17 19:18 Microcytosis Not Reportable 08/10/17 19:18 Macrocytosis Not Reportable 08/10/17 19:18 Spherocytes Not Reportable 08/10/17 19:18 Pappenheimer Bodies Not Reportable 08/10/17 19:18 Sickle Cells Not Reportable 08/10/17 19:18 Target Cells Not Reportable 08/10/17 19:18 Tear Drop Cells Not Reportable 08/10/17 19:18 Ovalocytes Not Reportable 08/10/17 19:18 Helmet Cells Not Reportable 08/10/17 19:18 [place] Bodies Not Reportable 08/10/17 19:18 [place] Rings Not Reportable 08/10/17 19:18 Nallely Cells Not Reportable 08/10/17 19:18 Bite Cells Not Reportable 08/10/17 19:18 Crenated Cell Not Reportable 08/10/17 19:18 Elliptocytes Not Reportable 08/10/17 19:18 Acanthocytes (Spur) Not Reportable 08/10/17 19:18 Rouleaux Not Reportable 08/10/17 19:18 Hemoglobin C Crystals Not Reportable 08/10/17 19:18 Schistocytes Not Reportable 08/10/17 19:18 Malaria parasites Not Reportable 08/10/17 19:18 Joaquín Bodies Not Reportable 08/10/17 19:18 Hem Pathologist Commnt No 08/10/17 19:18 Sodium 145 mmol/L (137-145) 08/11/17 04:35 Potassium 4.9 mmol/L (3.6-5.0) D 08/11/17 04:35 Chloride 107.7 mmol/L (98-107) H 08/11/17 04:35 Carbon Dioxide 22 mmol/L (22-30) 08/11/17 04:35 Anion Gap 20 mmol/L 08/11/17 04:35 BUN 9 mg/dL (7-17) 08/11/17 04:35 Creatinine 0.7 mg/dL (0.7-1.2) 08/11/17 04:35 Estimated GFR > 60 ml/min 08/11/17 04:35 BUN/Creatinine Ratio 13 % 08/11/17 04:35 Glucose 107 mg/dL (65-100) H 08/11/17 04:35 Calcium 8.5 mg/dL (8.4-10.2) 08/11/17 04:35 Magnesium 2.30 mg/dL (1.7-2.3) 08/10/17 19:30 Total Bilirubin 0.50 mg/dL (0.1-1.2) 08/10/17 19:18 AST 20 units/L (5-40) 08/10/17 19:18 ALT 13 units/L (7-56) 08/10/17 19:18 Alkaline Phosphatase 67 units/L (35-129) 08/10/17 19:18 Ammonia 39.0 umol/L (25-60) 08/10/17 19:24 Total Creatine Kinase 119 units/L (30-135) 08/10/17 19:24 CK-MB (CK-2) 2.2 ng/mL (0.0-4.0) 08/10/17 19:24 CK-MB (CK-2) Rel Index 1.8 (0-4) 08/10/17 19:24 Troponin T < 0.010 ng/mL (0.00-0.029) 08/10/17 19:24 Total Protein 7.2 g/dL (6.3-8.2) 08/10/17 19:18 Albumin 3.8 g/dL (3.9-5) L 08/10/17:18 Albumin/Globulin Ratio 1.1 % 08/10/17 19:18 TSH 2.690 mlU/mL (0.270-4.200) 08/10/17 19:24 Free T4 2.05 ng/dL (0.76-1.46) H 08/10/17 19:24 Urine Color Yellow (Yellow) 08/10/17 20:42 Urine Turbidity Clear (Clear) 08/10/17 20:42 Urine pH 7.0 (5.0-7.0) 08/10/17 20:42 Ur Specific [place] 1.019 (1.003-1.030) 08/10/17 20:42 Urine Protein 100 mg/dl mg/dL (Negative) 08/10/17 20:42 Urine Glucose (UA) Neg mg/dL (Negative) 08/10/17 20:42 Urine Ketones 20 mg/dL (Negative) 08/10/17 20:42 Urine Blood Neg (Negative) 08/10/17 20:42 Urine Nitrite Neg (Negative) 08/10/17 20:42 Urine Bilirubin Neg (Negative) 08/10/17 20:42 Urine Urobilinogen < 2.0 mg/dL (<2.0) 08/10/17 20:42 Ur Leukocyte Esterase Neg (Negative) 08/10/17 20:42 Urine WBC (Auto) 2.0 /HPF (0.0-6.0) 08/10/17 20:42 Urine RBC (Auto) 7.0 /HPF (0.0-6.0) 08/10/17 20:42 Urine Mucus 3+ /HPF 08/10/17 20:42 Salicylates < 0.3 mg/dL (2.8-20.0) L 08/10/17 19:24 Urine Opiates Screen Presumptive negative 08/10/17 20:42 Urine Methadone Screen Presumptive negative 08/10/17 20:42 Acetaminophen < 15.0 ug/mL (10.0-30.0) 08/10/17 19:24 Ur Barbiturates Screen Presumptive negative 08/10/17 20:42 Ur Phencyclidine Scrn Presumptive negative 08/10/17 20:42 Ur Amphetamines Screen Presumptive negative 08/10/17 20:42 U Benzodiazepines Scrn Presumptive negative 08/10/17 20:42 Urine Cocaine Screen Presumptive negative 08/10/17 20:42 U Marijuana (THC) Screen Presumptive negative 08/10/17 20:42 Drugs of Abuse Note Disclamer 08/10/17 20:42 Plasma/Serum Alcohol < 0.01 % (0-0.07) 08/10/17 19:18
--- NOTE | 2017-08-12 09:01 | Progress Note ---
<KYLE LOPEZ - Last Filed: 08/12/17 10:31> Assessment and Plan Assessment and plan: 66 year old AA woman brought to the emergency department due to change in mental status. She lives with her sister and niece, who states that she started having loud conversations by herself and wanted her to be evaluated. She was a patient at [facility] but was discharged around February 2017. Family is unsure of mental health diagnoses or medications which she has not been taking. Records requested. Acute encephalopathy/ psychosis?? etiology unknown, mental health records received Depression Mental health record shows a history of depression, unknown medication management Hypokalemia Replenished, Now resolved Mild protein malnutrition consult to medical record technician DVT prophylaxis Lovenox History Interval history: Patient seen and examined resting comfortably in bed. She appears to be in no acute distress. Labs and nursing notes reviewed. Hospitalist Physical - Constitutional Vitals: Temp Pulse Resp BP Pulse Ox 99.1 F 78 18 169/83 98 08/12/17 05:27 08/11/17 22:00 08/12/17 05:27 08/12/17 05:27 08/11/17 22:00 General appearance: Present: no acute distress, well-nourished - EENT Eyes: Present: PERRL, EOM intact ENT: hearing intact, clear oral mucosa - Neck Neck: Present: supple, normal ROM - Respiratory Respiratory effort: normal Respiratory: bilateral: CTA - Cardiovascular Rhythm: regular Heart Sounds: Present: S1 & S2 - Extremities Extremities: no ischemia, No edema - Abdominal General gastrointestinal: soft, non-tender, non-distended - Integumentary Integumentary: Present: clear, warm, dry - Psychiatric Psychiatric: appropriate mood/affect, cooperative - Neurologic Neurologic: CNII-XII intact, moves all extremities - Allied Health Allied health notes reviewed: nursing Results - Labs CBC & Chem 7: 08/11/17 04:35 08/11/17 04:35 Labs: Laboratory Last Values WBC 6.2 K/mm3 (4.5-11.0) 08/11/17 04:35 RBC 4.58 M/mm3 (3.65-5.03) 08/11/17 04:35 Hgb 13.1 gm/dl (10.1-14.3) 08/11/17 04:35 Hct 39.6 % (30.3-42.9) 08/11/17 04:35 MCV 87 fl (79-97) 08/11/17 04:35 MCH 29 pg (28-32) 08/11/17 04:35 MCHC 33 % (30-34) 08/11/17 04:35 RDW 13.7 % (13.2-15.2) 08/11/17 04:35 Plt Count 279 K/mm3 (140-440) 08/11/17 04:35 Lymph % (Auto) 27.9 % (13.4-35.0) 08/11/17 04:35 [place] % (Auto) 15.0 % (0.0-7.3) H 08/11/17 04:35 Eos % (Auto) 0.3 % (0.0-4.3) 08/11/17 04:35 Baso % (Auto) 0.2 % (0.0-1.8) 08/11/17 04:35 Lymph # 1.7 K/mm3 (1.2-5.4) 08/11/17 04:35 [place] # 0.9 K/mm3 (0.0-0.8) H 08/11/17 04:35 Eos # 0.0 K/mm3 (0.0-0.4) 08/11/17 04:35 Baso # 0.0 K/mm3 (0.0-0.1) 08/11/17 04:35 Add Manual Diff Complete 08/10/17 19:18 Total Counted 100 08/10/17 19:18 Seg Neutrophils % 56.6 % (40.0-70.0) 08/11/17 04:35 Seg Neuts % (Manual) 55.0 % (40.0-70.0) 08/10/17 19:18 Band Neutrophils % 1.0 % 08/10/17 19:18 Lymphocytes % (Manual) 35.0 % (13.4-35.0) 08/10/17 19:18 Reactive Lymphs % (Man) 0 % 08/10/17 19:18 Monocytes % (Manual) 9.0 % (0.0-7.3) H 08/10/17 19:18 Eosinophils % (Manual) 0 % (0.0-4.3) 02/13/18 19:18 Basophils % (Manual) 0 % (0.0-1.8) 08/10/17 19:18 Metamyelocytes % 0 % 08/10/17 19:18 Myelocytes % 0 % 08/10/17 19:18 Promyelocytes % 0 % 08/10/17 19:18 Blast Cells % 0 % 08/10/17 19:18 Nucleated RBC % Not Reportable 08/10/17 19:18 Seg Neutrophils # 3.5 K/mm3 (1.8-7.7) 08/11/17 04:35 Seg Neutrophils # Man 2.7 K/mm3 (1.8-7.7) 08/10/17 19:18 Band Neutrophils # 0.0 K/mm3 08/10/17 19:18 Lymphocytes # (Manual) 1.7 K/mm3 (1.2-5.4) 08/10/17 19:18 Abs React Lymphs (Man) 0.0 K/mm3 08/10/17 19:18 Monocytes # (Manual) 0.4 K/mm3 (0.0-0.8) 08/10/17 19:18 Eosinophils # (Manual) 0.0 K/mm3 (0.0-0.4) 08/10/17 19:18 Basophils # (Manual) 0.0 K/mm3 (0.0-0.1) 08/10/17 19:18 Metamyelocytes # 0.0 K/mm3 08/10/17 19:18 Myelocytes # 0.0 K/mm3 08/10/17 19:18 Promyelocytes # 0.0 K/mm3 08/10/17 19:18 Blast Cells # 0.0 K/mm3 08/10/17 19:18 WBC Morphology Not Reportable 08/10/17 19:18 Hypersegmented Neuts Not Reportable 08/10/17 19:18 Hyposegmented Neuts Not Reportable 08/10/17 19:18 Hypogranular Neuts Not Reportable 08/10/17 19:18 Smudge Cells Not Reportable 08/10/17 19:18 Toxic Granulation Not Reportable 08/10/17 19:18 Toxic Vacuolation Not Reportable 08/10/17 19:18 Dohle Bodies Not Reportable 08/10/17 19:18 Pelger-Huet Anomaly Not Reportable 02/13/18 19:18 Comfort Rods Not Reportable 08/10/17 19:18 Platelet Estimate Consistent w auto 08/10/17 19:18 Clumped Platelets Not Reportable 08/10/17 19:18 Plt Clumps, EDTA Not Reportable 08/10/17 19:18 Large Platelets Not Reportable 08/10/17 19:18 Giant Platelets Not Reportable 08/10/17 19:18 Platelet Satelliting Not Reportable 08/10/17 19:18 Plt Morphology Comment Not Reportable 08/10/17 19:18 RBC Morphology Not Reportable 08/10/17 19:18 Dimorphic RBCs Not Reportable 08/10/17 19:18 Polychromasia Not Reportable 08/10/17 19:18 Hypochromasia Not Reportable 08/10/17 19:18 Poikilocytosis Not Reportable 08/10/17 19:18 Anisocytosis Not Reportable 08/10/17 19:18 Microcytosis Not Reportable 08/10/17 19:18 Macrocytosis Not Reportable 08/10/17 19:18 Spherocytes Not Reportable 08/10/17 19:18 Pappenheimer Bodies Not Reportable 08/10/17 19:18 Sickle Cells Not Reportable 08/10/17 19:18 Target Cells Not Reportable 08/10/17 19:18 Tear Drop Cells Not Reportable 08/10/17 19:18 Ovalocytes Not Reportable 08/10/17 19:18 Helmet Cells Not Reportable 08/10/17 19:18 [place] Bodies Not Reportable 08/10/17 19:18 Oden Rings Not Reportable 08/10/17 19:18 [place] Cells Not Reportable 08/10/17 19:18 Bite Cells Not Reportable 08/10/17 19:18 Crenated Cell Not Reportable 08/10/17 19:18 Elliptocytes Not Reportable 08/10/17 19:18 Acanthocytes (Spur) Not Reportable 08/10/17 19:18 Rouleaux Not Reportable 08/10/17 19:18 Hemoglobin C Crystals Not Reportable 08/10/17 19:18 Schistocytes Not Reportable 08/10/17 19:18 Malaria parasites Not Reportable 08/10/17 19:18 [place] Bodies Not Reportable 08/10/17 19:18 Hem Pathologist Commnt No 08/10/17 19:18 Sodium 145 mmol/L (137-145) 08/11/17 04:35 Potassium 4.9 mmol/L (3.6-5.0) D 08/11/17 04:35 Chloride 107.7 mmol/L (98-107) H 08/11/17 04:35 Carbon Dioxide 22 mmol/L (22-30) 08/11/17 04:35 Anion Gap 20 mmol/L 08/11/17 04:35 BUN 9 mg/dL (7-17) 08/11/17 04:35 Creatinine 0.7 mg/dL (0.7-1.2) 08/11/17 04:35 Estimated GFR > 60 ml/min 08/11/17 04:35 BUN/Creatinine Ratio 13 % 08/11/17 04:35 Glucose 107 mg/dL (65-100) H 08/11/17 04:35 Calcium 8.5 mg/dL (8.4-10.2) 08/11/17 04:35 Magnesium 2.30 mg/dL (1.7-2.3) 08/10/17 19:30 Total Bilirubin 0.50 mg/dL (0.1-1.2) 08/10/17 19:18 AST 20 units/L (5-40) 08/10/17 19:18 ALT 13 units/L (7-56) 08/10/17 19:18 Alkaline Phosphatase 67 units/L (35-129) 08/10/17 19:18 Ammonia 39.0 umol/L (25-60) 08/10/17 19:24 Total Creatine Kinase 119 units/L (30-135) 08/10/17 19:24 CK-MB (CK-2) 2.2 ng/mL (0.0-4.0) 08/10/17 19:24 CK-MB (CK-2) Rel Index 1.8 (0-4) 08/10/17 19:24 Troponin T < 0.010 ng/mL (0.00-0.029) 08/10/17 19:24 Total Protein 7.2 g/dL (6.3-8.2) 08/10/17 19:18 Albumin 3.8 g/dL (3.9-5) L 08/10/17 19:18 Albumin/Globulin Ratio 1.1 % 08/10/17 19:18 TSH 2.690 mlU/mL (0.270-4.200) 08/10/17 19:24 Free T4 2.05 ng/dL (0.76-1.46) H 08/10/17 19:24 Urine Color Yellow (Yellow) 08/10/17 20:42 Urine Turbidity Clear (Clear) 08/10/17 20:42 Urine pH 7.0 (5.0-7.0) 08/10/17 20:42 Ur Specific Ault 1.019 (1.003-1.030) 08/10/17 20:42 Urine Protein 100 mg/dl mg/dL (Negative) 08/10/17 20:42 Urine Glucose (UA) Neg mg/dL (Negative) 08/10/17 20:42 Urine Ketones 20 mg/dL (Negative) 08/10/17 20:42 Urine Blood Neg (Negative) 08/10/17 20:42 Urine Nitrite Neg (Negative) 08/10/17 20:42 Urine Bilirubin Neg (Negative) 08/10/17 20:42 Urine Urobilinogen < 2.0 mg/dL (<2.0) 08/10/17 20:42 Ur Leukocyte Esterase Neg (Negative) 08/10/17 20:42 Urine WBC (Auto) 2.0 /HPF (0.0-6.0) 08/10/17 20:42 Urine RBC (Auto) 7.0 /HPF (0.0-6.0) 08/10/17 20:42 Urine Mucus 3+ /HPF 08/10/17 20:42 Salicylates < 0.3 mg/dL (2.8-20.0) L 08/10/17 19:24 Urine Opiates Screen Presumptive negative 08/10/17 20:42 Urine Methadone Screen Presumptive negative 08/10/17 20:42 Acetaminophen < 15.0 ug/mL (10.0-30.0) 08/10/17 19:24 Ur Barbiturates Screen Presumptive negative 08/10/17 20:42 Ur Phencyclidine Scrn Presumptive negative 08/10/17 20:42 Ur Amphetamines Screen Presumptive negative 08/10/17 20:42 U Benzodiazepines Scrn Presumptive negative 08/10/17 20:42 Urine Cocaine Screen Presumptive negative 08/10/17 20:42 U Marijuana (THC) Screen Presumptive negative 08/10/17 20:42 Drugs of Abuse Note Disclamer 08/10/17 20:42 Plasma/Serum Alcohol < 0.01 % (0-0.07) 08/10/17 19:18 <OPAL LESTER M - Last Filed: 08/12/17 16:02> Assessment and Plan Assessment and plan: I saw and evaluated the patient. I agree with the findings and the plan of care as documented in the PA's note. Hospitalist Physical - Constitutional Vitals: Temp Pulse Resp BP Pulse Ox 99.4 F 96 H 20 150/79 96 08/12/17 14:00 08/12/17 14:00 08/12/17 14:00 08/12/17 14:00 08/12/17 14:00 Results - Labs CBC & Chem 7: 08/11/17 04:35 08/11/17 04:35 Labs: Laboratory Last Values WBC 6.2 K/mm3 (4.5-11.0) 08/11/17 04:35 RBC 4.58 M/mm3 (3.65-5.03) 08/11/17 04:35 Hgb 13.1 gm/dl (10.1-14.3) 08/11/17 04:35 Hct 39.6 % (30.3-42.9) 08/11/17 04:35 MCV 87 fl (79-97) 08/11/17 04:35 MCH 29 pg (28-32) 08/11/17 04:35 MCHC 33 % (30-34) 08/11/17 04:35 RDW 13.7 % (13.2-15.2) 08/11/17 04:35 Plt Count 279 K/mm3 (140-440) 08/11/17 04:35 Lymph % (Auto) 27.9 % (13.4-35.0) 08/11/17 04:35 [place] % (Auto) 15.0 % (0.0-7.3) H 08/11/17 04:35 Eos % (Auto) 0.3 % (0.0-4.3) 08/11/17 04:35 Baso % (Auto) 0.2 % (0.0-1.8) 08/11/17 04:35 Lymph # 1.7 K/mm3 (1.2-5.4) 08/11/17 04:35 [place] # 0.9 K/mm3 (0.0-0.8) H 08/11/17 04:35 Eos # 0.0 K/mm3 (0.0-0.4) 08/11/17 04:35 Baso # 0.0 K/mm3 (0.0-0.1) 08/11/17 04:35 Add Manual Diff Complete 08/10/17 19:18 Total Counted 100 08/10/17 19:18 Seg Neutrophils % 56.6 % (40.0-70.0) 08/11/17 04:35 Seg Neuts % (Manual) 55.0 % (40.0-70.0) 08/10/17 19:18 Band Neutrophils % 1.0 % 08/10/17 19:18 Lymphocytes % (Manual) 35.0 % (13.4-35.0) 08/10/17 19:18 Reactive Lymphs % (Man) 0 % 08/10/17 19:18 Monocytes % (Manual) 9.0 % (0.0-7.3) H 08/10/17 19:18 Eosinophils % (Manual) 0 % (0.0-4.3) 08/10/17 19:18 Basophils % (Manual) 0 % (0.0-1.8) 08/10/17 19:18 Metamyelocytes % 0 % 08/10/17 19:18 Myelocytes % 0 % 08/10/17 19:18 Promyelocytes % 0 % 08/10/17 19:18 Blast Cells % 0 % 08/10/17 19:18 Nucleated RBC % Not Reportable 08/10/17 19:18 Seg Neutrophils # 3.5 K/mm3 (1.8-7.7) 08/11/17 04:35 Seg Neutrophils # Man 2.7 K/mm3 (1.8-7.7) 08/10/17 19:18 Band Neutrophils # 0.0 K/mm3 08/10/17 19:18 Lymphocytes # (Manual) 1.7 K/mm3 (1.2-5.4) 08/10/17 19:18 Abs React Lymphs (Man) 0.0 K/mm3 08/10/17 19:18 Monocytes # (Manual) 0.4 K/mm3 (0.0-0.8) 08/10/17 19:18 Eosinophils # (Manual) 0.0 K/mm3 (0.0-0.4) 08/10/17 19:18 Basophils # (Manual) 0.0 K/mm3 (0.0-0.1) 08/10/17 19:18 Metamyelocytes # 0.0 K/mm3 08/10/17 19:18 Myelocytes # 0.0 K/mm3 08/10/17 19:18 Promyelocytes # 0.0 K/mm3 08/10/17 19:18 Blast Cells # 0.0 K/mm3 08/10/17 19:18 WBC Morphology Not Reportable 08/10/17 19:18 Hypersegmented Neuts Not Reportable 08/10/17 19:18 Hyposegmented Neuts Not Reportable 08/10/17 19:18 Hypogranular Neuts Not Reportable 08/10/17 19:18 Smudge Cells Not Reportable 08/10/17 19:18 Toxic Granulation Not Reportable 08/10/17 19:18 Toxic Vacuolation Not Reportable 08/10/17 19:18 Dohle Bodies Not Reportable 08/10/17 19:18 Pel[place]-Huet Anomaly Not Reportable 08/10/17 19:18 Comfort Rods Not Reportable 08/10/17 19:18 Platelet Estimate Consistent w auto 08/10/17 19:18 Clumped Platelets Not Reportable 08/10/17 19:18 Plt Clumps, EDTA Not Reportable 08/10/17 19:18 Large Platelets Not Reportable 08/10/17 19:18 Giant Platelets Not Reportable 08/10/17 19:18 Platelet Satelliting Not Reportable 08/10/17 19:18 Plt Morphology Comment Not Reportable 08/10/17 19:18 RBC Morphology Not Reportable 08/10/17 19:18 Dimorphic RBCs Not Reportable 08/10/17 19:18 Polychromasia Not Reportable 08/10/17 19:18 Hypochromasia Not Reportable 08/10/17 19:18 Poikilocytosis Not Reportable 08/10/17 19:18 Anisocytosis Not Reportable 08/10/17 19:18 Microcytosis Not Reportable 08/10/17 19:18 Macrocytosis Not Reportable 08/10/17 19:18 Spherocytes Not Reportable 08/10/17 19:18 Pappenheimer Bodies Not Reportable 08/10/17 19:18 Sickle Cells Not Reportable 08/10/17 19:18 Target Cells Not Reportable 08/10/17 19:18 Tear Drop Cells Not Reportable 08/10/17 19:18 Ovalocytes Not Reportable 08/10/17 19:18 Helmet Cells Not Reportable 08/10/17 19:18 [place] Bodies Not Reportable 08/10/17 19:18 [place]den Rings Not Reportable 08/10/17 19:18 [place] Cells Not Reportable 08/10/17 19:18 Bite Cells Not Reportable 08/10/17 19:18 Crenated Cell Not Reportable 08/10/17 19:18 Elliptocytes Not Reportable 08/10/17 19:18 Acanthocytes (Spur) Not Reportable 08/10/17 19:18 Rouleaux Not Reportable 08/10/17 19:18 Hemoglobin C Crystals Not Reportable 08/10/17 19:18 Schistocytes Not Reportable 08/10/17 19:18 Malaria parasites Not Reportable 08/10/17 19:18 [place] Bodies Not Reportable 08/10/17 19:18 Hem Pathologist Commnt No 08/10/17 19:18 Sodium 145 mmol/L (137-145) 08/11/17 04:35 Potassium 4.9 mmol/L (3.6-5.0) D 08/11/17 04:35 Chloride 107.7 mmol/L (98-107) H 08/11/17 04:35 Carbon Dioxide 22 mmol/L (22-30) 08/11/17 04:35 Anion Gap 20 mmol/L 08/11/17 04:35 BUN 9 mg/dL (7-17) 08/11/17 04:35 Creatinine 0.7 mg/dL (0.7-1.2) 08/11/17 04:35 Estimated GFR > 60 ml/min 08/11/17 04:35 BUN/Creatinine Ratio 13 % 08/11/17 04:35 Glucose 107 mg/dL (65-100) H 08/11/17 04:35 Calcium 8.5 mg/dL (8.4-10.2) 08/11/17 04:35 Magnesium 2.30 mg/dL (1.7-2.3) 08/10/17 19:30 Total Bilirubin 0.50 mg/dL (0.1-1.2) 08/10/17 19:18 AST 20 units/L (5-40) 08/10/17 19:18 ALT 13 units/L (7-56) 08/10/17 19:18 Alkaline Phosphatase 67 units/L (35-129) 08/10/17:18 Ammonia 39.0 umol/L (25-60) 08/10/17 19:24 Total Creatine Kinase 119 units/L (30-135) 08/10/17 19:24 CK-MB (CK-2) 2.2 ng/mL (0.0-4.0) 08/10/17 19:24 CK-MB (CK-2) Rel Index 1.8 (0-4) 08/10/17 19:24 Troponin T < 0.010 ng/mL (0.00-0.029) 08/10/17 19:24 Total Protein 7.2 g/dL (6.3-8.2) 08/10/17 19:18 Albumin 3.8 g/dL (3.9-5) L 08/10/17:18 Albumin/Globulin Ratio 1.1 % 08/10/17 19:18 TSH 2.690 mlU/mL (0.270-4.200) 08/10/17 19:24 Free T4 2.05 ng/dL (0.76-1.46) H 08/10/17 19:24 Urine Color Yellow (Yellow) 08/10/17 20:42 Urine Turbidity Clear (Clear) 08/10/17 20:42 Urine pH 7.0 (5.0-7.0) 08/10/17 20:42 Ur Specific Ault 1.019 (1.003-1.030) 08/10/17 20:42 Urine Protein 100 mg/dl mg/dL (Negative) 08/10/17 20:42 Urine Glucose (UA) Neg mg/dL (Negative) 08/10/17 20:42 Urine Ketones 20 mg/dL (Negative) 08/10/17 20:42 Urine Blood Neg (Negative) 08/10/17 20:42 Urine Nitrite Neg (Negative) 08/10/17 20:42 Urine Bilirubin Neg (Negative) 08/10/17 20:42 Urine Urobilinogen < 2.0 mg/dL (<2.0) 08/10/17 20:42 Ur Leukocyte Esterase Neg (Negative) 08/10/17 20:42 Urine WBC (Auto) 2.0 /HPF (0.0-6.0) 08/10/17 20:42 Urine RBC (Auto) 7.0 /HPF (0.0-6.0) 08/10/17 20:42 Urine Mucus 3+ /HPF 08/10/17 20:42 Salicylates < 0.3 mg/dL (2.8-20.0) L 08/10/17 19:24 Urine Opiates Screen Presumptive negative 08/10/17 20:42 Urine Methadone Screen Presumptive negative 08/10/17 20:42 Acetaminophen < 15.0 ug/mL (10.0-30.0) 08/10/17 19:24 Ur Barbiturates Screen Presumptive negative 08/10/17 20:42 Ur Phencyclidine Scrn Presumptive negative 08/10/17 20:42 Ur Amphetamines Screen Presumptive negative 08/10/17 20:42 U Benzodiazepines Scrn Presumptive negative 08/10/17 20:42 Urine Cocaine Screen Presumptive negative 08/10/17 20:42 U Marijuana (THC) Screen Presumptive negative 08/10/17 20:42 Drugs of Abuse Note Disclamer 08/10/17 20:42 Plasma/Serum Alcohol < 0.01 % (0-0.07) 08/10/17 19:18
[2017-08-12] MEDS: LOVENOX SUB-Q SCH (09:47)
[2017-08-12] MEDS: NACL 0.9% 1000 ML 1,000 ML IV SCH (12:08)
[2017-08-13] MEDS: NACL 0.9% 1000 ML 1,000 ML IV SCH (01:41)
[2017-08-13 05:07] LABS: BUN/Creatinine Ratio 15; Blood Urea Nitrogen 9 mg/dL (7-17); Hemolysis Index 5
[2017-08-13] MEDS: LOVENOX SUB-Q SCH (09:26)
--- NOTE | 2017-08-13 13:05 | Progress Note ---
<KYLE LOPEZ - Last Filed: 08/13/17 14:18> Assessment and Plan Assessment and plan: 66 year old AA woman brought to the emergency department due to change in mental status. She lives with her sister and niece, who states that she started having loud conversations by herself and wanted her to be evaluated. She was a patient at [facility] but was discharged around February 2017. Family is unsure of mental health diagnoses or medications which she has not been taking. Records requested. Acute encephalopathy/ psychosis?? etiology unknown, mental health records received Depression Mental health record shows a history of depression, unknown medication management Hypokalemia Replenished, Now resolved Mild protein malnutrition consult to buffet server DVT prophylaxis Lovenox History Interval history: Patient seen and examined resting comfortably in bed. She appears to be in no acute distress. Labs and nursing notes reviewed. Hospitalist Physical - Constitutional Vitals: Temp Pulse Resp BP Pulse Ox 98.0 F 87 18 143/94 97 08/13/17 07:49 08/13/17 10:00 08/13/17 10:00 08/13/17 07:49 08/13/17 10:00 General appearance: Present: no acute distress, well-nourished - EENT Eyes: Present: PERRL, EOM intact ENT: hearing intact, clear oral mucosa - Neck Neck: Present: supple, normal ROM - Respiratory Respiratory effort: normal Respiratory: bilateral: CTA - Cardiovascular Rhythm: regular Heart Sounds: Present: S1 & S2 - Extremities Extremities: no ischemia, No edema - Abdominal General gastrointestinal: soft, non-tender, non-distended - Integumentary Integumentary: Present: clear, warm, dry - Psychiatric Psychiatric: appropriate mood/affect, cooperative, other (calm) - Neurologic Neurologic: CNII-XII intact, moves all extremities - Allied Health Allied health notes reviewed: nursing Results - Labs CBC & Chem 7: 08/11/17 04:35 08/13/17 03:56 Labs: Laboratory Last Values WBC 6.2 K/mm3 (4.5-11.0) 08/11/17 04:35 RBC 4.58 M/mm3 (3.65-5.03) 08/11/17 04:35 Hgb 13.1 gm/dl (10.1-14.3) 08/11/17 04:35 Hct 39.6 % (30.3-42.9) 08/11/17 04:35 MCV 87 fl (79-97) 08/11/17 04:35 MCH 29 pg (28-32) 08/11/17 04:35 MCHC 33 % (30-34) 08/11/17 04:35 RDW 13.7 % (13.2-15.2) 08/11/17 04:35 Plt Count 279 K/mm3 (140-440) 08/11/17 04:35 Lymph % (Auto) 27.9 % (13.4-35.0) 08/11/17 04:35 [place] % (Auto) 15.0 % (0.0-7.3) H 08/11/17 04:35 Eos % (Auto) 0.3 % (0.0-4.3) 08/11/17 04:35 Baso % (Auto) 0.2 % (0.0-1.8) 08/11/17 04:35 Lymph # 1.7 K/mm3 (1.2-5.4) 08/11/17 04:35 [place] # 0.9 K/mm3 (0.0-0.8) H 08/11/17 04:35 Eos # 0.0 K/mm3 (0.0-0.4) 08/11/17 04:35 Baso # 0.0 K/mm3 (0.0-0.1) 08/11/17 04:35 Add Manual Diff Complete 08/10/17 19:18 Total Counted 100 08/10/17 19:18 Seg Neutrophils % 56.6 % (40.0-70.0) 08/11/17 04:35 Seg Neuts % (Manual) 55.0 % (40.0-70.0) 08/10/17 19:18 Band Neutrophils % 1.0 % 08/10/17 19:18 Lymphocytes % (Manual) 35.0 % (13.4-35.0) 08/10/17 19:18 Reactive Lymphs % (Man) 0 % 08/10/17 19:18 Monocytes % (Manual) 9.0 % (0.0-7.3) H 08/10/17 19:18 Eosinophils % (Manual) 0 % (0.0-4.3) 08/10/17 19:18 Basophils % (Manual) 0 % (0.0-1.8) 08/10/17 19:18 Metamyelocytes % 0 % 08/10/17 19:18 Myelocytes % 0 % 08/10/17 19:18 Promyelocytes % 0 % 08/10/17 19:18 Blast Cells % 0 % 08/10/17 19:18 Nucleated RBC % Not Reportable 08/10/17 19:18 Seg Neutrophils # 3.5 K/mm3 (1.8-7.7) 08/11/17 04:35 Seg Neutrophils # Man 2.7 K/mm3 (1.8-7.7) 08/10/17 19:18 Band Neutrophils # 0.0 K/mm3 08/10/17 19:18 Lymphocytes # (Manual) 1.7 K/mm3 (1.2-5.4) 08/10/17 19:18 Abs React Lymphs (Man) 0.0 K/mm3 08/10/17 19:18 Monocytes # (Manual) 0.4 K/mm3 (0.0-0.8) 08/10/17 19:18 Eosinophils # (Manual) 0.0 K/mm3 (0.0-0.4) 08/10/17 19:18 Basophils # (Manual) 0.0 K/mm3 (0.0-0.1) 08/10/17 19:18 Metamyelocytes # 0.0 K/mm3 08/10/17 19:18 Myelocytes # 0.0 K/mm3 08/10/17 19:18 Promyelocytes # 0.0 K/mm3 08/10/17 19:18 Blast Cells # 0.0 K/mm3 08/10/17 19:18 WBC Morphology Not Reportable 08/10/17 19:18 Hypersegmented Neuts Not Reportable 08/10/17 19:18 Hyposegmented Neuts Not Reportable 08/10/17 19:18 Hypogranular Neuts Not Reportable 08/10/17 19:18 Smudge Cells Not Reportable 08/10/17 19:18 Toxic Granulation Not Reportable 08/10/17 19:18 Toxic Vacuolation Not Reportable 08/10/17 19:18 Dohle Bodies Not Reportable 08/10/17 19:18 Pelger-Huet Anomaly Not Reportable 08/10/17 19:18 Comfort Rods Not Reportable 08/10/17 19:18 Platelet Estimate Consistent w auto 08/10/17 19:18 Clumped Platelets Not Reportable 08/10/17 19:18 Plt Clumps, EDTA Not Reportable 08/10/17 19:18 Large Platelets Not Reportable 08/10/17 19:18 Giant Platelets Not Reportable 08/10/17 19:18 Platelet Satelliting Not Reportable 08/10/17 19:18 Plt Morphology Comment Not Reportable 08/10/17 19:18 RBC Morphology Not Reportable 08/10/17 19:18 Dimorphic RBCs Not Reportable 08/10/17 19:18 Polychromasia Not Reportable 08/10/17 19:18 Hypochromasia Not Reportable 08/10/17 19:18 Poikilocytosis Not Reportable 08/10/17 19:18 Anisocytosis Not Reportable 08/10/17 19:18 Microcytosis Not Reportable 08/10/17 19:18 Macrocytosis Not Reportable 08/10/17 19:18 Spherocytes Not Reportable 08/10/17 19:18 Pappenheimer Bodies Not Reportable 08/10/17 19:18 Sickle Cells Not Reportable 08/10/17 19:18 Target Cells Not Reportable 08/10/17 19:18 Tear Drop Cells Not Reportable 08/10/17 19:18 Ovalocytes Not Reportable 08/10/17 19:18 Helmet Cells Not Reportable 08/10/17 19:18 [place] Bodies Not Reportable 08/10/17 19:18 [place] Rings Not Reportable 08/10/17 19:18 [place] Cells Not Reportable 08/10/17 19:18 Bite Cells Not Reportable 08/10/17 19:18 Crenated Cell Not Reportable 08/10/17 19:18 Elliptocytes Not Reportable 08/10/17 19:18 Acanthocytes (Spur) Not Reportable 08/10/17 19:18 Rouleaux Not Reportable 08/10/17 19:18 Hemoglobin C Crystals Not Reportable 08/10/17 19:18 Schistocytes Not Reportable 08/10/17 19:18 Malaria parasites Not Reportable 08/10/17 19:18 Joaquín Bodies Not Reportable 02/13/18 19:18 Hem Pathologist Commnt No 02/13/18 19:18 Sodium 141 mmol/L (137-145) 08/13/17 03:56 Potassium 3.8 mmol/L (3.6-5.0) D 08/13/17 03:56 Chloride 97.2 mmol/L (98-107) L 08/13/17 03:56 Carbon Dioxide 22 mmol/L (22-30) 08/13/17 03:56 Anion Gap 26 mmol/L 08/13/17 03:56 BUN 9 mg/dL (7-17) 08/13/17 03:56 Creatinine 0.6 mg/dL (0.7-1.2) L 08/13/17 03:56 Estimated GFR > 60 ml/min 08/13/17 03:56 BUN/Creatinine Ratio 15 % 08/13/17 03:56 Glucose 102 mg/dL (65-100) H 08/13/17 03:56 Calcium 9.0 mg/dL (8.4-10.2) 08/13/17 03:56 Magnesium 2.30 mg/dL (1.7-2.3) 08/10/17 19:30 Total Bilirubin 0.50 mg/dL (0.1-1.2) 08/10/17 19:18 AST 20 units/L (5-40) 08/10/17 19:18 ALT 13 units/L (7-56) 08/10/17 19:18 Alkaline Phosphatase 67 units/L (35-129) 08/10/17 19:18 Ammonia 39.0 umol/L (25-60) 08/10/17 19:24 Total Creatine Kinase 119 units/L (30-135) 08/10/17 19:24 CK-MB (CK-2) 2.2 ng/mL (0.0-4.0) 08/10/17 19:24 CK-MB (CK-2) Rel Index 1.8 (0-4) 08/10/17 19:24 Troponin T < 0.010 ng/mL (0.00-0.029) 08/10/17 19:24 Total Protein 7.2 g/dL (6.3-8.2) 08/10/17 19:18 Albumin 3.8 g/dL (3.9-5) L 08/10/17 19:18 Albumin/Globulin Ratio 1.1 % 08/10/17 19:18 TSH 2.690 mlU/mL (0.270-4.200) 08/10/17 19:24 Free T4 2.05 ng/dL (0.76-1.46) H 08/10/17 19:24 Urine Color Yellow (Yellow) 08/10/17 20:42 Urine Turbidity Clear (Clear) 08/10/17 20:42 Urine pH 7.0 (5.0-7.0) 08/10/17 20:42 Ur Specific [place] 1.019 (1.003-1.030) 08/10/17 20:42 Urine Protein 100 mg/dl mg/dL (Negative) 08/10/17 20:42 Urine Glucose (UA) Neg mg/dL (Negative) 08/10/17 20:42 Urine Ketones 20 mg/dL (Negative) 08/10/17 20:42 Urine Blood Neg (Negative) 08/10/17 20:42 Urine Nitrite Neg (Negative) 08/10/17 20:42 Urine Bilirubin Neg (Negative) 08/10/17 20:42 Urine Urobilinogen < 2.0 mg/dL (<2.0) 08/10/17 20:42 Ur Leukocyte Esterase Neg (Negative) 08/10/17 20:42 Urine WBC (Auto) 2.0 /HPF (0.0-6.0) 08/10/17 20:42 Urine RBC (Auto) 7.0 /HPF (0.0-6.0) 08/10/17 20:42 Urine Mucus 3+ /HPF 08/10/17 20:42 Salicylates < 0.3 mg/dL (2.8-20.0) L 08/10/17 19:24 Urine Opiates Screen Presumptive negative 08/10/17 20:42 Urine Methadone Screen Presumptive negative 08/10/17 20:42 Acetaminophen < 15.0 ug/mL (10.0-30.0) 08/10/17 19:24 Ur Barbiturates Screen Presumptive negative 08/10/17 20:42 Ur Phencyclidine Scrn Presumptive negative 08/10/17 20:42 Ur Amphetamines Screen Presumptive negative 08/10/17 20:42 U Benzodiazepines Scrn Presumptive negative 08/10/17 20:42 Urine Cocaine Screen Presumptive negative 08/10/17 20:42 U Marijuana (THC) Screen Presumptive negative 08/10/17 20:42 Drugs of Abuse Note Disclamer 08/10/17 20:42 Plasma/Serum Alcohol < 0.01 % (0-0.07) 08/10/17 19:18 <OPAL LESTER M - Last Filed: 08/14/17 08:41> Assessment and Plan Assessment and plan: I saw and evaluated the patient. I agree with the findings and the plan of care as documented in the PA's note, with the following corrections and additions. Patient is admitted for unspecified psychosis not for depression. Patient is medically cleared, discharge is per Psychiatry. Hospitalist Physical - Constitutional Vitals: Temp Pulse Resp BP Pulse Ox 98.6 F 88 20 144/81 97 08/14/17 04:18 08/14/17 04:18 08/14/17 04:18 08/14/17 04:18 08/14/17 04:18 Results - Labs CBC & Chem 7: 08/11/17 04:35 08/13/17 03:56 Labs: Laboratory Last Values WBC 6.2 K/mm3 (4.5-11.0) 08/11/17 04:35 RBC 4.58 M/mm3 (3.65-5.03) 08/11/17 04:35 Hgb 13.1 gm/dl (10.1-14.3) 08/11/17 04:35 Hct 39.6 % (30.3-42.9) 08/11/17 04:35 MCV 87 fl (79-97) 08/11/17 04:35 MCH 29 pg (28-32) 08/11/17 04:35 MCHC 33 % (30-34) 08/11/17 04:35 RDW 13.7 % (13.2-15.2) 08/11/17 04:35 Plt Count 279 K/mm3 (140-440) 08/11/17 04:35 Lymph % (Auto) 27.9 % (13.4-35.0) 08/11/17 04:35 [place] % (Auto) 15.0 % (0.0-7.3) H 08/11/17 04:35 Eos % (Auto) 0.3 % (0.0-4.3) 08/11/17 04:35 Baso % (Auto) 0.2 % (0.0-1.8) 08/11/17 04:35 Lymph # 1.7 K/mm3 (1.2-5.4) 08/11/17 04:35 [place] # 0.9 K/mm3 (0.0-0.8) H 08/11/17 04:35 Eos # 0.0 K/mm3 (0.0-0.4) 08/11/17 04:35 Baso # 0.0 K/mm3 (0.0-0.1) 08/11/17 04:35 Add Manual Diff Complete 08/10/17 19:18 Total Counted 100 08/10/17 19:18 Seg Neutrophils % 56.6 % (40.0-70.0) 08/11/17 04:35 Seg Neuts % (Manual) 55.0 % (40.0-70.0) 08/10/17 19:18 Band Neutrophils % 1.0 % 08/10/17 19:18 Lymphocytes % (Manual) 35.0 % (13.4-35.0) 08/10/17 19:18 Reactive Lymphs % (Man) 0 % 08/10/17 19:18 Monocytes % (Manual) 9.0 % (0.0-7.3) H 08/10/17 19:18 Eosinophils % (Manual) 0 % (0.0-4.3) 08/10/17 19:18 Basophils % (Manual) 0 % (0.0-1.8) 08/10/17 19:18 Metamyelocytes % 0 % 08/10/17 19:18 Myelocytes % 0 % 08/10/17 19:18 Promyelocytes % 0 % 08/10/17 19:18 Blast Cells % 0 % 08/10/17 19:18 Nucleated RBC % Not Reportable 08/10/17 19:18 Seg Neutrophils # 3.5 K/mm3 (1.8-7.7) 08/11/17 04:35 Seg Neutrophils # Man 2.7 K/mm3 (1.8-7.7) 08/10/17 19:18 Band Neutrophils # 0.0 K/mm3 08/10/17 19:18 Lymphocytes # (Manual) 1.7 K/mm3 (1.2-5.4) 08/10/17 19:18 Abs React Lymphs (Man) 0.0 K/mm3 08/10/17 19:18 Monocytes # (Manual) 0.4 K/mm3 (0.0-0.8) 08/10/17 19:18 Eosinophils # (Manual) 0.0 K/mm3 (0.0-0.4) 08/10/17 19:18 Basophils # (Manual) 0.0 K/mm3 (0.0-0.1) 08/10/17 19:18 Metamyelocytes # 0.0 K/mm3 08/10/17 19:18 Myelocytes # 0.0 K/mm3 08/10/17 19:18 Promyelocytes # 0.0 K/mm3 08/10/17 19:18 Blast Cells # 0.0 K/mm3 08/10/17 19:18 WBC Morphology Not Reportable 08/10/17 19:18 Hypersegmented Neuts Not Reportable 08/10/17 19:18 Hyposegmented Neuts Not Reportable 08/10/17 19:18 Hypogranular Neuts Not Reportable 08/10/17 19:18 Smudge Cells Not Reportable 08/10/17 19:18 Toxic Granulation Not Reportable 08/10/17 19:18 Toxic Vacuolation Not Reportable 08/10/17 19:18 Dohle Bodies Not Reportable 08/10/17 19:18 Pelger-Huet Anomaly Not Reportable 08/10/17 19:18 Comfort Rods Not Reportable 08/10/17 19:18 Platelet Estimate Consistent w auto 08/10/17 19:18 Clumped Platelets Not Reportable 08/10/17 19:18 Plt Clumps, EDTA Not Reportable 08/10/17 19:18 Large Platelets Not Reportable 08/10/17 19:18 Giant Platelets Not Reportable 08/10/17 19:18 Platelet Satelliting Not Reportable 08/10/17 19:18 Plt Morphology Comment Not Reportable 08/10/17 19:18 RBC Morphology Not Reportable 08/10/17 19:18 Dimorphic RBCs Not Reportable 08/10/17 19:18 Polychromasia Not Reportable 08/10/17 19:18 Hypochromasia Not Reportable 08/10/17 19:18 Poikilocytosis Not Reportable 08/10/17 19:18 Anisocytosis Not Reportable 08/10/17 19:18 Microcytosis Not Reportable 08/10/17 19:18 Macrocytosis Not Reportable 08/10/17 19:18 Spherocytes Not Reportable 08/10/17 19:18 Pappenheimer Bodies Not Reportable 08/10/17 19:18 Sickle Cells Not Reportable 08/10/17 19:18 Target Cells Not Reportable 08/10/17 19:18 Tear Drop Cells Not Reportable 08/10/17 19:18 Ovalocytes Not Reportable 08/10/17 19:18 Helmet Cells Not Reportable 08/10/17 19:18 [place] Bodies Not Reportable 08/10/17 19:18 [place] Rings Not Reportable 08/10/17 19:18 [place] Cells Not Reportable 08/10/17 19:18 Bite Cells Not Reportable 08/10/17 19:18 Crenated Cell Not Reportable 08/10/17 19:18 Elliptocytes Not Reportable 08/10/17 19:18 Acanthocytes (Spur) Not Reportable 08/10/17 19:18 Rouleaux Not Reportable 08/10/17 19:18 Hemoglobin C Crystals Not Reportable 08/10/17 19:18 Schistocytes Not Reportable 08/10/17 19:18 Malaria parasites Not Reportable 08/10/17 19:18 Joaquín Bodies Not Reportable 08/10/17 19:18 Hem Pathologist Commnt No 08/10/17 19:18 Sodium 141 mmol/L (137-145) 08/13/17 03:56 Potassium 3.8 mmol/L (3.6-5.0) D 08/13/17 03:56 Chloride 97.2 mmol/L (98-107) L 08/13/17 03:56 Carbon Dioxide 22 mmol/L (22-30) 08/13/17 03:56 Anion Gap 26 mmol/L 08/13/17 03:56 BUN 9 mg/dL (7-17) 08/13/17 03:56 Creatinine 0.6 mg/dL (0.7-1.2) L 08/13/17 03:56 Estimated GFR > 60 ml/min 08/13/17 03:56 BUN/Creatinine Ratio 15 % 08/13/17 03:56 Glucose 102 mg/dL (65-100) H 08/13/17 03:56 Calcium 9.0 mg/dL (8.4-10.2) 08/13/17 03:56 Magnesium 2.30 mg/dL (1.7-2.3) 08/10/17 19:30 Total Bilirubin 0.50 mg/dL (0.1-1.2) 08/10/17 19:18 AST 20 units/L (5-40) 08/10/17 19:18 ALT 13 units/L (7-56) 08/10/17 19:18 Alkaline Phosphatase 67 units/L (35-129) 08/10/17 19:18 Ammonia 39.0 umol/L (25-60) 08/10/17 19:24 Total Creatine Kinase 119 units/L (30-135) 08/10/17 19:24 CK-MB (CK-2) 2.2 ng/mL (0.0-4.0) 08/10/17 19:24 CK-MB (CK-2) Rel Index 1.8 (0-4) 08/10/17 19:24 Troponin T < 0.010 ng/mL (0.00-0.029) 08/10/17 19:24 Total Protein 7.2 g/dL (6.3-8.2) 08/10/17 19:18 Albumin 3.8 g/dL (3.9-5) L 08/10/17 19:18 Albumin/Globulin Ratio 1.1 % 08/10/17 19:18 TSH 2.690 mlU/mL (0.270-4.200) 08/10/17 19:24 Free T4 2.05 ng/dL (0.76-1.46) H 08/10/17 19:24 Urine Color Yellow (Yellow) 08/10/17 20:42 Urine Turbidity Clear (Clear) 08/10/17 20:42 Urine pH 7.0 (5.0-7.0) 08/10/17 20:42 Ur Specific [place] 1.019 (1.003-1.030) 08/10/17 20:42 Urine Protein 100 mg/dl mg/dL (Negative) 08/10/17 20:42 Urine Glucose (UA) Neg mg/dL (Negative) 08/10/17 20:42 Urine Ketones 20 mg/dL (Negative) 08/10/17 20:42 Urine Blood Neg (Negative) 08/10/17 20:42 Urine Nitrite Neg (Negative) 08/10/17 20:42 Urine Bilirubin Neg (Negative) 08/10/17 20:42 Urine Urobilinogen < 2.0 mg/dL (<2.0) 08/10/17 20:42 Ur Leukocyte Esterase Neg (Negative) 08/10/17 20:42 Urine WBC (Auto) 2.0 /HPF (0.0-6.0) 08/10/17 20:42 Urine RBC (Auto) 7.0 /HPF (0.0-6.0) 08/10/17 20:42 Urine Mucus 3+ /HPF 08/10/17 20:42 Salicylates < 0.3 mg/dL (2.8-20.0) L 08/10/17 19:24 Urine Opiates Screen Presumptive negative 08/10/17 20:42 Urine Methadone Screen Presumptive negative 08/10/17 20:42 Acetaminophen < 15.0 ug/mL (10.0-30.0) 08/10/17 19:24 Ur Barbiturates Screen Presumptive negative 08/10/17 20:42 Ur Phencyclidine Scrn Presumptive negative 08/10/17 20:42 Ur Amphetamines Screen Presumptive negative 08/10/17 20:42 U Benzodiazepines Scrn Presumptive negative 08/10/17 20:42 Urine Cocaine Screen Presumptive negative 08/10/17 20:42 U Marijuana (THC) Screen Presumptive negative 08/10/17 20:42 Drugs of Abuse Note Disclamer 08/10/17 20:42 Plasma/Serum Alcohol < 0.01 % (0-0.07) 08/10/17 19:18
--- NOTE | 2017-08-13 13:47 | Consultation ---
History of Present Illness - Reason for Consult Consult date: 08/13/17 Reason for consult: Mental Health Evaluation Requesting physician: KYLE LOPEZ - Chief Complaint Chief complaint: "Patient is nonverbal" - History of Present Psychiatric Illness 66 year-old female unknown past medical history presents to the hospital via EMS for alteration in mental status. Today the patient is calm, but mumbles during the assessment. She does not answer questions when asked. The patient is a poor historian at this time. Per the patient's assigned RN, the patient ate 50 % of her breakfast. Per collateral information from the patient's sisters, they both stated that their sister have experienced bizarre behavior in the past (paranoia and being nonverbal). They stated that the patient take medication for "some type of mental illness." I reassessed the patient and found the patient to be possibly responding to some type stimuli when asked several questions. Medications and Allergies Allergies Allergy/AdvReac Type Severity Reaction Status Date / Time No Known Allergies Allergy Unverified 08/10/17 18:27 Home Medications Medication Instructions Recorded Confirmed Last Taken Type No Known Home Medications [No 08/11/17 08/11/17 Unknown History Reported Home Medications] Active Meds: Active Medications Acetaminophen (Tylenol) 650 mg PO Q4H PRN PRN Reason: Pain MILD(1-3)/Fever >100.5/PATINO Bisacodyl (Dulcolax) 10 mg [place] QDAY PRN PRN Reason: Constipation unrelieved by MOM Enoxaparin Sodium (Lovenox) 40 mg SUB-Q QDAY ELIEL Last Admin: 08/13/17 09:26 Dose: 40 mg Sodium Chloride (Nacl 0.9% 1000 Ml) 1,000 mls @ 75 mls/hr IV DIRECT ELIEL Last Admin: 08/13/17 01:41 Dose: 75 mls/hr Magnesium Hydroxide (Milk Of Magnesia) 30 ml PO Q4H PRN PRN Reason: Constipation Olanzapine (Zyprexa) 5 mg PO Q6H PRN PRN Reason: Agitation Last Admin: 08/12/17 23:26 Dose: 5 mg Ondansetron HCl (Zofran) 4 mg IV Q8H PRN PRN Reason: N/V unrelieved by Reglan Last Admin: 08/11/17 22:51 Dose: 4 mg Past psychiatric history - Past Medical History Past Medical History: other (Unable to obtain) Past Surgical History: Other (Unable to obtain) - past Psychiatric treatment and history psychiatric treatment history: Unable to obtain a psy and fam psy hx. - Social History Social history: other (Unable to obtain) Mental Status Exam - Vital signs Last Vital Signs Temp 98.0 F 08/13/17 07:49 Pulse 87 08/13/17 10:00 Resp 18 08/13/17 10:00 BP 143/94 08/13/17 07:49 Pulse Ox 97 08/13/17 10:00 - Exam Narrative exam: Unable to complete the MSE because of the patient's condition. Results Result Diagrams: 08/11/17 04:35 08/13/17 03:56 Abnormal lab results 08/13/17 Range/Units 03:56 Chloride 97.2 L (98-107) mmol/L Creatinine 0.6 L (0.7-1.2) mg/dL Glucose 102 H (65-100) mg/dL All other labs normal. Assessment and Plan Assessment and plan: Impression: Unspecified Psychosis. Today the patient is calm, but mumbles during the assessment. The patient is in restraint (waist belt). DDx: R/O Mood DO Recommendation/Plan: Initiate 1013 with placement to inpatient psy services one medically clear. Start Zyprexa 5 mg PO HS for psychosis. Discussed with patient' s family possible metabolic side effects of Zyprexa.
[2017-08-13] MEDS ORDERED: HALDOL PO PRN (13:55)
[2017-08-13] MEDS: TYLENOL PO PRN (22:02)
[2017-08-14] MEDS: LOVENOX SUB-Q SCH (10:58)
--- NOTE | 2017-08-14 13:19 | Progress Note ---
Assessment and Plan Assessment and plan: Patient is admitted to the hospital for the management of unspecified psychosis. Psychiatry was consulted and recommended inpatient psychiatry treatment. Patient is medically cleared to be discharged from our side. Disposition Plan: per psychiatry. History Interval history: Patient was seen and evaluated this morning, patient was calm but confused, have discussed the management plan with her families. Hospitalist Physical - Physical exam Narrative exam: Not in cardiopulmonary distress. The patient appeared well nourished and normally developed. Vital signs as documented. Head exam is unremarkable. No scleral icterus . Neck is without jugular venous distension, thyromegaly, or carotid bruits. Lungs are clear to auscultation. Cardiac exam reveals regular rate and Rhythm. First and second heart sounds normal. No murmurs, rubs or gallops. Abdominal exam reveals normal bowel sounds, no masses, no organomegaly and no aortic enlargement. Extremities are nonedematous and both femoral and pedal pulses are normal. BULK CLERK: Confused. - Constitutional Vitals: Temp Pulse Resp BP Pulse Ox 99.2 F 78 18 155/87 97 08/14/17 08:23 08/14/17 08:23 08/14/17 08:23 08/14/17 08:23 08/14/17 08:23 General appearance: Present: no acute distress, well-nourished Results - Labs CBC & Chem 7: 08/11/17 04:35 08/13/17 03:56 Labs: Laboratory Last Values WBC 6.2 K/mm3 (4.5-11.0) 08/11/17 04:35 RBC 4.58 M/mm3 (3.65-5.03) 08/11/17 04:35 Hgb 13.1 gm/dl (10.1-14.3) 08/11/17 04:35 Hct 39.6 % (30.3-42.9) 08/11/17 04:35 MCV 87 fl (79-97) 08/11/17 04:35 MCH 29 pg (28-32) 08/11/17 04:35 MCHC 33 % (30-34) 08/11/17 04:35 RDW 13.7 % (13.2-15.2) 08/11/17 04:35 Plt Count 279 K/mm3 (140-440) 08/11/17 04:35 Lymph % (Auto) 27.9 % (13.4-35.0) 08/11/17 04:35 [place] % (Auto) 15.0 % (0.0-7.3) H 08/11/17 04:35 Eos % (Auto) 0.3 % (0.0-4.3) 08/11/17 04:35 Baso % (Auto) 0.2 % (0.0-1.8) 08/11/17 04:35 Lymph # 1.7 K/mm3 (1.2-5.4) 08/11/17 04:35 [place] # 0.9 K/mm3 (0.0-0.8) H 08/11/17 04:35 Eos # 0.0 K/mm3 (0.0-0.4) 08/11/17 04:35 Baso # 0.0 K/mm3 (0.0-0.1) 08/11/17 04:35 Add Manual Diff Complete 08/10/17 19:18 Total Counted 100 08/10/17 19:18 Seg Neutrophils % 56.6 % (40.0-70.0) 08/11/17 04:35 Seg Neuts % (Manual) 55.0 % (40.0-70.0) 08/10/17 19:18 Band Neutrophils % 1.0 % 08/10/17 19:18 Lymphocytes % (Manual) 35.0 % (13.4-35.0) 08/10/17 19:18 Reactive Lymphs % (Man) 0 % 08/10/17 19:18 Monocytes % (Manual) 9.0 % (0.0-7.3) H 08/10/17 19:18 Eosinophils % (Manual) 0 % (0.0-4.3) 08/10/17 19:18 Basophils % (Manual) 0 % (0.0-1.8) 08/10/17 19:18 Metamyelocytes % 0 % 08/10/17 19:18 Myelocytes % 0 % 08/10/17 19:18 Promyelocytes % 0 % 08/10/17 19:18 Blast Cells % 0 % 08/10/17 19:18 Nucleated RBC % Not Reportable 08/10/17 19:18 Seg Neutrophils # 3.5 K/mm3 (1.8-7.7) 08/11/17 04:35 Seg Neutrophils # Man 2.7 K/mm3 (1.8-7.7) 08/10/17 19:18 Band Neutrophils # 0.0 K/mm3 08/10/17 19:18 Lymphocytes # (Manual) 1.7 K/mm3 (1.2-5.4) 08/10/17 19:18 Abs React Lymphs (Man) 0.0 K/mm3 08/10/17 19:18 Monocytes # (Manual) 0.4 K/mm3 (0.0-0.8) 08/10/17 19:18 Eosinophils # (Manual) 0.0 K/mm3 (0.0-0.4) 08/10/17 19:18 Basophils # (Manual) 0.0 K/mm3 (0.0-0.1) 08/10/17 19:18 Metamyelocytes # 0.0 K/mm3 08/10/17 19:18 Myelocytes # 0.0 K/mm3 08/10/17 19:18 Promyelocytes # 0.0 K/mm3 08/10/17 19:18 Blast Cells # 0.0 K/mm3 08/10/17 19:18 WBC Morphology Not Reportable 08/10/17 19:18 Hypersegmented Neuts Not Reportable 08/10/17 19:18 Hyposegmented Neuts Not Reportable 08/10/17 19:18 Hypogranular Neuts Not Reportable 08/10/17 19:18 Smudge Cells Not Reportable 08/10/17 19:18 Toxic Granulation Not Reportable 08/10/17 19:18 Toxic Vacuolation Not Reportable 08/10/17 19:18 Dohle Bodies Not Reportable 08/10/17 19:18 Pelger-Huet Anomaly Not Reportable 08/10/17 19:18 Comfort Rods Not Reportable 08/10/17 19:18 Platelet Estimate Consistent w auto 08/10/17 19:18 Clumped Platelets Not Reportable 08/10/17 19:18 Plt Clumps, EDTA Not Reportable 08/10/17 19:18 Large Platelets Not Reportable 08/10/17 19:18 Giant Platelets Not Reportable 08/10/17 19:18 Platelet Satelliting Not Reportable 08/10/17 19:18 Plt Morphology Comment Not Reportable 02/13/18 19:18 RBC Morphology Not Reportable 08/10/17 19:18 Dimorphic RBCs Not Reportable 08/10/17 19:18 Polychromasia Not Reportable 08/10/17 19:18 Hypochromasia Not Reportable 08/10/17 19:18 Poikilocytosis Not Reportable 08/10/17 19:18 Anisocytosis Not Reportable 08/10/17 19:18 Microcytosis Not Reportable 08/10/17 19:18 Macrocytosis Not Reportable 08/10/17 19:18 Spherocytes Not Reportable 08/10/17 19:18 Pappenheimer Bodies Not Reportable 08/10/17 19:18 Sickle Cells Not Reportable 08/10/17 19:18 Target Cells Not Reportable 08/10/17 19:18 Tear Drop Cells Not Reportable 08/10/17 19:18 Ovalocytes Not Reportable 08/10/17 19:18 Helmet Cells Not Reportable 08/10/17 19:18 [place] Bodies Not Reportable 08/10/17 19:18 [place] Rings Not Reportable 08/10/17 19:18 Nallely Cells Not Reportable 08/10/17 19:18 Bite Cells Not Reportable 08/10/17 19:18 Crenated Cell Not Reportable 08/10/17 19:18 Elliptocytes Not Reportable 08/10/17 19:18 Acanthocytes (Spur) Not Reportable 08/10/17 19:18 Rouleaux Not Reportable 08/10/17 19:18 Hemoglobin C Crystals Not Reportable 08/10/17 19:18 Schistocytes Not Reportable 08/10/17 19:18 Malaria parasites Not Reportable 08/10/17 19:18 [place] Bodies Not Reportable 08/10/17 19:18 Hem Pathologist Commnt No 08/10/17 19:18 Sodium 141 mmol/L (137-145) 08/13/17 03:56 Potassium 3.8 mmol/L (3.6-5.0) D 08/13/17 03:56 Chloride 97.2 mmol/L (98-107) L 08/13/17 03:56 Carbon Dioxide 22 mmol/L (22-30) 08/13/17 03:56 Anion Gap 26 mmol/L 08/13/17 03:56 BUN 9 mg/dL (7-17) 08/13/17 03:56 Creatinine 0.6 mg/dL (0.7-1.2) L 08/13/17 03:56 Estimated GFR > 60 ml/min 08/13/17 03:56 BUN/Creatinine Ratio 15 % 08/13/17 03:56 Glucose 102 mg/dL (65-100) H 08/13/17 03:56 Calcium 9.0 mg/dL (8.4-10.2) 08/13/17 03:56 Magnesium 2.30 mg/dL (1.7-2.3) 08/10/17 19:30 Total Bilirubin 0.50 mg/dL (0.1-1.2) 08/10/17 19:18 AST 20 units/L (5-40) 08/10/17 19:18 ALT 13 units/L (7-56) 08/10/17 19:18 Alkaline Phosphatase 67 units/L (35-129) 08/10/17 19:18 Ammonia 39.0 umol/L (25-60) 08/10/17 19:24 Total Creatine Kinase 119 units/L (30-135) 08/10/17 19:24 CK-MB (CK-2) 2.2 ng/mL (0.0-4.0) 08/10/17 19:24 CK-MB (CK-2) Rel Index 1.8 (0-4) 08/10/17 19:24 Troponin T < 0.010 ng/mL (0.00-0.029) 08/10/17 19:24 Total Protein 7.2 g/dL (6.3-8.2) 08/10/17 19:18 Albumin 3.8 g/dL (3.9-5) L 08/10/17 19:18 Albumin/Globulin Ratio 1.1 % 08/10/17 19:18 TSH 2.690 mlU/mL (0.270-4.200) 08/10/17 19:24 Free T4 2.05 ng/dL (0.76-1.46) H 08/10/17 19:24 Urine Color Yellow (Yellow) 08/10/17 20:42 Urine Turbidity Clear (Clear) 08/10/17 20:42 Urine pH 7.0 (5.0-7.0) 02/13/18 20:42 Ur Specific [place] 1.019 (1.003-1.030) 08/10/17 20:42 Urine Protein 100 mg/dl mg/dL (Negative) 08/10/17 20:42 Urine Glucose (UA) Neg mg/dL (Negative) 08/10/17 20:42 Urine Ketones 20 mg/dL (Negative) 08/10/17 20:42 Urine Blood Neg (Negative) 08/10/17 20:42 Urine Nitrite Neg (Negative) 08/10/17 20:42 Urine Bilirubin Neg (Negative) 08/10/17 20:42 Urine Urobilinogen < 2.0 mg/dL (<2.0) 08/10/17 20:42 Ur Leukocyte Esterase Neg (Negative) 08/10/17 20:42 Urine WBC (Auto) 2.0 /HPF (0.0-6.0) 08/10/17 20:42 Urine RBC (Auto) 7.0 /HPF (0.0-6.0) 08/10/17 20:42 Urine Mucus 3+ /HPF 08/10/17 20:42 Salicylates < 0.3 mg/dL (2.8-20.0) L 08/10/17 19:24 Urine Opiates Screen Presumptive negative 08/10/17 20:42 Urine Methadone Screen Presumptive negative 08/10/17 20:42 Acetaminophen < 15.0 ug/mL (10.0-30.0) 08/10/17 19:24 Ur Barbiturates Screen Presumptive negative 08/10/17 20:42 Ur Phencyclidine Scrn Presumptive negative 08/10/17 20:42 Ur Amphetamines Screen Presumptive negative 08/10/17 20:42 U Benzodiazepines Scrn Presumptive negative 08/10/17 20:42 Urine Cocaine Screen Presumptive negative 08/10/17 20:42 U Marijuana (THC) Screen Presumptive negative 08/10/17 20:42 Drugs of Abuse Note Disclamer 08/10/17 20:42 Plasma/Serum Alcohol < 0.01 % (0-0.07) 08/10/17 19:18
[2017-08-14] MEDS: NACL 0.9% 1000 ML 1,000 ML IV SCH (16:10)
--- NOTE | 2017-08-14 17:02 | Progress Note ---
Subjective - Reason for Consult Consult date: 08/14/17 Reason for consult: follow up - Chief Complaint Chief complaint: Patient is nonverbal 66 year-old female unknown past medical history presents to the hospital via EMS for alteration in mental status. She has been asleep all day and was up all night. She has not eaten today or moved from the supine position today. Per collateral information from the patient's sisters, they both stated that their sister has experienced bizarre behavior in the past (paranoia and being nonverbal). They stated that the patient take medication for "some type of mental illness." The nurses reported she has been off medication for over 6 months. Mental Status Exam - Vital signs Last Vital Signs Temp 99.2 F 08/14/17 08:23 Pulse 78 08/14/17 08:23 Resp 18 08/14/17 08:23 BP 155/87 08/14/17 08:23 Pulse Ox 97 08/14/17 08:23 Assessment and Plan Unable to complete the MSE because of the patient's condition. Impression: Unspecified Psychosis. asleep. attempts to wake her were unsuccessful DDx: R/O Mood DO Recommendation/Plan: Continue 1013 with placement to inpatient psy services. Continue Zyprexa 5 mg PO HS for psychosis.
[2017-08-14] MEDS ORDERED: SIMPLE SYRUP FEEDTUBE PRN ×2 (17:30)
[2017-08-14] MEDS ORDERED: PANCREAZE DR 10,500 UNIT FEEDTUBE PRN (17:30)
[2017-08-14] MEDS ORDERED: SODIUM BICARBONATE FEEDTUBE PRN (17:30)
--- NOTE | 2017-08-14 18:17 | XRay Report ---
FINAL REPORT EXAM: XR CHEST 1V AP HISTORY: comatose TECHNIQUE: AP portable view of the chest PRIORS: None. FINDINGS: Lines, tubes, and devices: N/A Lungs and pleura: Trachea is normal in position. Lungs are clear of infiltrate, pleural effusion, vascular congestion, or pneumothorax. Cardiomediastinal silhouette: Cardiac and mediastinal silhouettes are unremarkable. Other: Bony structures are intact. IMPRESSION: No acute cardiopulmonary process seen.
[2017-08-14 18:42] LABS: Basophils # (Auto) 0.1 K/mm3 (0.0-0.1); Basophils % (Auto) 1.2 % (0.0-1.8); Eosinophils # (Auto) 0.1 K/mm3 (0.0-0.4); Eosinophils % (Auto) 2.2 % (0.0-4.3); Hematocrit 40.6 % (30.3-42.9); Hemoglobin 13.4 gm/dl (10.1-14.3); Lymphocytes # (Auto) 1.7 K/mm3 (1.2-5.4); Lymphocytes % (Auto) 32.4 % (13.4-35.0); Mean Corpuscular HGB Conc 33 % (30-34); Mean Corpuscular Hemoglobin 28 pg (28-32); Mean Corpuscular Volume 85 fl (79-97); Monocytes # (Auto) 0.8 K/mm3 (0.0-0.8); Monocytes % (Auto) 14.3 % (0.0-7.3); Red Blood Count 4.76 M/mm3 (3.65-5.03); Red Cell Distribution Width 13.9 % (13.2-15.2)
--- NOTE | 2017-08-14 18:45 | Consultation ---
History of Present Illness Consult date: 08/14/17 History of present illness: thsnks for the consult plan EEG on wednesday interesting hx of catatonia- CT of brain is negative plan MRI and get further w/u I will review the psych notes doubt the degree of low potassium is an issue with encephalopathy thanks Past History Past Medical History: other (Unable to obtain) Past Surgical History: Other (Unable to obtain) Social history: other (Unable to obtain) Medications and Allergies Allergies Allergy/AdvReac Type Severity Reaction Status Date / Time No Known Allergies Allergy Unverified 08/10/17 18:27 Home Medications Medication Instructions Recorded Confirmed Last Taken Type No Known Home Medications [No 08/11/17 08/11/17 Unknown History Reported Home Medications] Active Meds: Active Medications Acetaminophen (Tylenol) 650 mg PO Q4H PRN PRN Reason: Pain MILD(1-3)/Fever >100.5/PATINO Last Admin: 08/13/17 22:02 Dose: 650 mg Lipase/Protease/Amylase (Pancreaze Dr 10,500 Unit) 1 each FEEDTUBE PRN PRN PRN Reason: For Clogged Feeding Tube Aspirin (Aspirin) 300 mg [place] QDAY ELIEL Bisacodyl (Dulcolax) 10 mg [place] QDAY PRN PRN Reason: Constipation unrelieved by MOM Enoxaparin Sodium (Lovenox) 40 mg SUB-Q QDAY [facility] Last Admin: 08/14/17 10:58 Dose: 40 mg Dextrose/Sodium Chloride (D5/0.45ns) 1,000 mls @ 100 mls/hr IV DIRECT ELIEL Magnesium Hydroxide (Milk Of Magnesia) 30 ml PO Q4H PRN PRN Reason: Constipation Olanzapine (Zyprexa) 5 mg PO HS [facility] Last Admin: 08/13/17 22:02 Dose: 5 mg Ondansetron HCl (Zofran) 4 mg IV Q8H PRN PRN Reason: N/V unrelieved by Reglan Last Admin: 08/11/17 22:51 Dose: 4 mg Simple Syrup (Simple Syrup) 15 ml FEEDTUBE PRN PRN PRN Reason: Hypoglycemia Simple Syrup (Simple Syrup) 30 ml FEEDTUBE PRN PRN PRN Reason: Hypoglycemia Sodium Bicarbonate (Sodium Bicarbonate) 325 mg FEEDTUBE PRN PRN PRN Reason: For Clogged Feeding Tube Physical Examination - Vital Signs Vital Signs: Vital Signs BP 156/94 08/10/17 19:03 Results - Laboratory Findings CBC and BMP: 08/14/17 18:17 08/13/17 03:56 Abnormal Lab Findings: Abnormal Labs 08/10/17 08/10/17 08/10/17 19:18 19:18 19:24 [place] % (Auto) [place] # Monocytes % (Manual) 9.0 H Potassium 3.4 L Chloride Creatinine 0.6 L Glucose 109 H Albumin 3.8 L Free T4 2.05 H Salicylates 08/10/17 08/11/17 08/11/17 19:24 04:35 04:35 [place] % (Auto) 15.0 H [place] # 0.9 H Monocytes % (Manual) Potassium Chloride 107.7 H Creatinine Glucose 107 H Albumin Free T4 Salicylates < 0.3 L 08/13/17 08/14/17 03:56 18:17 [place] % (Auto) 14.3 H [place] # Monocytes % (Manual) Potassium Chloride 97.2 L Creatinine 0.6 L Glucose 102 H Albumin Free T4 Salicylates
[2017-08-14 18:56] LABS: BUN/Creatinine Ratio 15; Blood Urea Nitrogen 9 mg/dL (7-17); Calcium 8.9 mg/dL (8.4-10.2); Hemolysis Index 3
[2017-08-14] MEDS: D5/0.45NS 1,000 ML IV SCH (18:56)
[2017-08-14 18:58] LABS: Chol/HDL Ratio 4.72 %
[2017-08-14] MEDS: ASPIRIN PR SCH (19:05)
[2017-08-14 19:30] LABS: Platelet Count 392 K/mm3 (140-440)
[2017-08-15 04:25] LABS: Eosinophils # (Auto) 0.1 K/mm3 (0.0-0.4); Eosinophils % (Auto) 2.6 % (0.0-4.3); Hematocrit 38.4 % (30.3-42.9); Lymphocytes # (Auto) 1.2 K/mm3 (1.2-5.4); Lymphocytes % (Auto) 29.3 % (13.4-35.0); Mean Corpuscular HGB Conc 34 % (30-34); Mean Corpuscular Hemoglobin 29 pg (28-32); Mean Corpuscular Volume 85 fl (79-97); Monocytes # (Auto) 0.6 K/mm3 (0.0-0.8); Monocytes % (Auto) 15.2 % (0.0-7.3); Platelet Count 384 K/mm3 (140-440); Red Blood Count 4.51 M/mm3 (3.65-5.03); Red Cell Distribution Width 13.8 % (13.2-15.2)
[2017-08-15] MEDS: D5/0.45NS 1,000 ML IV SCH ×2 (04:30→15:51)
[2017-08-15 06:27] LABS: BUN/Creatinine Ratio 14; Blood Urea Nitrogen 7 mg/dL (7-17); Calcium 8.5 mg/dL (8.4-10.2); Hemolysis Index 95
[2017-08-15] MEDS ORDERED: PANCREAZE DR 10,500 UNIT FEEDTUBE PRN (08:19)
[2017-08-15] MEDS ORDERED: SODIUM BICARBONATE FEEDTUBE PRN (08:19)
[2017-08-15] MEDS ORDERED: SIMPLE SYRUP FEEDTUBE PRN ×2 (08:19)
[2017-08-15] MEDS: LOVENOX SUB-Q SCH ×2 (08:48→10:39)
[2017-08-15] MEDS: ASPIRIN PR SCH ×2 (08:49→10:39)
[2017-08-15 10:19] LABS: Bacteria,Urine 1+ /HPF (Negative); Bilirubin,Urine NEG (Negative); Blood,Urine NEG (Negative); Color,Urine Yellow (Yellow); Mucus,Urine FEW /HPF; Protein,Urine <15 mg/dL mg/dL (Negative); Urobilinogen,Urine < 2.0 mg/dL (<2.0)
--- NOTE | 2017-08-15 10:52 | Progress Note ---
Assessment and Plan Assessment and plan: Patient is admitted to the hospital for the management of unspecified psychosis. Psychiatry was consulted and recommended inpatient psychiatry treatment. Patient refused to eat all workup is negative. MRI is pending. History Interval history: Patient was seen and evaluated this morning, patient is non communicative. Patient open her eyes. She refused to eat but drink some boost. Hospitalist Physical - Physical exam Narrative exam: Not in cardiopulmonary distress. The patient appeared well nourished and normally developed. Vital signs as documented. Head exam is unremarkable. No scleral icterus . Neck is without jugular venous distension, thyromegaly, or carotid bruits. Lungs are clear to auscultation. Cardiac exam reveals regular rate and Rhythm. First and second heart sounds normal. No murmurs, rubs or gallops. Abdominal exam reveals normal bowel sounds, no masses, no organomegaly and no aortic enlargement. Extremities are nonedematous and both femoral and pedal pulses are normal. 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 - Constitutional Vitals: Temp Pulse Resp BP Pulse Ox 98.9 F 93 H 18 139/82 96 08/15/17 09:18 08/15/17 09:18 08/15/17 09:18 08/15/17 09:18 08/15/17 09:18 General appearance: Present: no acute distress, well-nourished Results - Labs CBC & Chem 7: 08/15/17 03:54 08/15/17 03:54 Labs: Laboratory Last Values WBC 4.0 K/mm3 (4.5-11.0) L 08/15/17 03:54 RBC 4.51 M/mm3 (3.65-5.03) 08/15/17 03:54 Hgb 13.0 gm/dl (10.1-14.3) 08/15/17 03:54 Hct 38.4 % (30.3-42.9) 08/15/17 03:54 MCV 85 fl (79-97) 08/15/17 03:54 MCH 29 pg (28-32) 08/15/17 03:54 MCHC 34 % (30-34) 08/15/17 03:54 RDW 13.8 % (13.2-15.2) 08/15/17 03:54 Plt Count 384 K/mm3 (140-440) 08/15/17 03:54 Lymph % (Auto) 29.3 % (13.4-35.0) 08/15/17 03:54 [place] % (Auto) 15.2 % (0.0-7.3) H 08/15/17 03:54 Eos % (Auto) 2.6 % (0.0-4.3) 08/15/17 03:54 Baso % (Auto) 1.0 % (0.0-1.8) 08/15/17 03:54 Lymph # 1.2 K/mm3 (1.2-5.4) 08/15/17 03:54 [place] # 0.6 K/mm3 (0.0-0.8) 08/15/17 03:54 Eos # 0.1 K/mm3 (0.0-0.4) 08/15/17 03:54 Baso # 0.0 K/mm3 (0.0-0.1) 08/15/17 03:54 Add Manual Diff Complete 08/10/17 19:18 Total Counted 100 08/10/17 19:18 Seg Neutrophils % 51.9 % (40.0-70.0) 08/15/17 03:54 Seg Neuts % (Manual) 55.0 % (40.0-70.0) 08/10/17 19:18 Band Neutrophils % 1.0 % 08/10/17 19:18 Lymphocytes % (Manual) 35.0 % (13.4-35.0) 08/10/17 19:18 Reactive Lymphs % (Man) 0 % 08/10/17 19:18 Monocytes % (Manual) 9.0 % (0.0-7.3) H 08/10/17 19:18 Eosinophils % (Manual) 0 % (0.0-4.3) 08/10/17 19:18 Basophils % (Manual) 0 % (0.0-1.8) 08/10/17 19:18 Metamyelocytes % 0 % 08/10/17 19:18 Myelocytes % 0 % 08/10/17 19:18 Promyelocytes % 0 % 08/10/17 19:18 Blast Cells % 0 % 08/10/17 19:18 Nucleated RBC % Not Reportable 08/10/17 19:18 Seg Neutrophils # 2.1 K/mm3 (1.8-7.7) 08/15/17 03:54 Seg Neutrophils # Man 2.7 K/mm3 (1.8-7.7) 08/10/17 19:18 Band Neutrophils # 0.0 K/mm3 08/10/17 19:18 Lymphocytes # (Manual) 1.7 K/mm3 (1.2-5.4) 08/10/17 19:18 Abs React Lymphs (Man) 0.0 K/mm3 08/10/17 19:18 Monocytes # (Manual) 0.4 K/mm3 (0.0-0.8) 08/10/17 19:18 Eosinophils # (Manual) 0.0 K/mm3 (0.0-0.4) 08/10/17 19:18 Basophils # (Manual) 0.0 K/mm3 (0.0-0.1) 08/10/17 19:18 Metamyelocytes # 0.0 K/mm3 08/10/17 19:18 Myelocytes # 0.0 K/mm3 08/10/17 19:18 Promyelocytes # 0.0 K/mm3 08/10/17 19:18 Blast Cells # 0.0 K/mm3 08/10/17 19:18 WBC Morphology Not Reportable 08/10/17 19:18 Hypersegmented Neuts Not Reportable 08/10/17 19:18 Hyposegmented Neuts Not Reportable 08/10/17 19:18 Hypogranular Neuts Not Reportable 08/10/17 19:18 Smudge Cells Not Reportable 08/10/17 19:18 Toxic Granulation Not Reportable 08/10/17 19:18 Toxic Vacuolation Not Reportable 08/10/17 19:18 Dohle Bodies Not Reportable 08/10/17 19:18 Pelger-Huet Anomaly Not Reportable 08/10/17 19:18 Comfort Rods Not Reportable 08/10/17 19:18 Platelet Estimate Consistent w auto 08/10/17 19:18 Clumped Platelets Not Reportable 08/10/17 19:18 Plt Clumps, EDTA Not Reportable 08/10/17 19:18 Large Platelets Not Reportable 08/10/17 19:18 Giant Platelets Not Reportable 08/10/17 19:18 Platelet Satelliting Not Reportable 08/10/17 19:18 Plt Morphology Comment Not Reportable 08/10/17 19:18 RBC Morphology Not Reportable 08/10/17 19:18 Dimorphic RBCs Not Reportable 08/10/17 19:18 Polychromasia Not Reportable 08/10/17 19:18 Hypochromasia Not Reportable 08/10/17 19:18 Poikilocytosis Not Reportable 08/10/17 19:18 Anisocytosis Not Reportable 08/10/17 19:18 Microcytosis Not Reportable 08/10/17 19:18 Macrocytosis Not Reportable 08/10/17 19:18 Spherocytes Not Reportable 08/10/17 19:18 Pappenheimer Bodies Not Reportable 08/10/17 19:18 Sickle Cells Not Reportable 08/10/17 19:18 Target Cells Not Reportable 08/10/17 19:18 Tear Drop Cells Not Reportable 08/10/17 19:18 Ovalocytes Not Reportable 08/10/17 19:18 Helmet Cells Not Reportable 08/10/17 19:18 [place] Bodies Not Reportable 08/10/17 19:18 [place] Rings Not Reportable 08/10/17 19:18 [place]alle[place] Cells Not Reportable 08/10/17 19:18 Bite Cells Not Reportable 08/10/17 19:18 Crenated Cell Not Reportable 08/10/17 19:18 Elliptocytes Not Reportable 08/10/17 19:18 Acanthocytes (Spur) Not Reportable 08/10/17 19:18 Rouleaux Not Reportable 08/10/17 19:18 Hemoglobin C Crystals Not Reportable 08/10/17 19:18 Schistocytes Not Reportable 08/10/17 19:18 Malaria parasites Not Reportable 08/10/17 19:18 [place] Bodies Not Reportable 08/10/17 19:18 Hem Pathologist Commnt No 08/10/17 19:18 Sodium 138 mmol/L (137-145) 08/15/17 03:54 Potassium 3.8 mmol/L (3.6-5.0) 08/15/17 03:54 Chloride 101.7 mmol/L (98-107) 08/15/17 03:54 Carbon Dioxide 19 mmol/L (22-30) L 08/15/17 03:54 Anion Gap 21 mmol/L 08/15/17 03:54 BUN 7 mg/dL (7-17) 08/15/17 03:54 Creatinine 0.5 mg/dL (0.7-1.2) L 08/15/17 03:54 Estimated GFR > 60 ml/min 08/15/17 03:54 BUN/Creatinine Ratio 14 % 08/15/17 03:54 Glucose 144 mg/dL (65-100) H 08/15/17 03:54 POC Glucose 85 (70-105) 08/14/17 18:16 Calcium 8.5 mg/dL (8.4-10.2) 08/15/17 03:54 Magnesium 2.20 mg/dL (1.7-2.3) 08/14/17 18:17 Total Bilirubin 0.50 mg/dL (0.1-1.2) 08/10/17 19:18 AST 20 units/L (5-40) 08/10/17 19:18 ALT 13 units/L (7-56) 08/10/17 19:18 Alkaline Phosphatase 67 units/L (35-129) 08/10/17 19:18 Ammonia 39.0 umol/L (25-60) 08/10/17 19:24 Total Creatine Kinase 119 units/L (30-135) 08/10/17 19:24 CK-MB (CK-2) 2.2 ng/mL (0.0-4.0) 08/10/17 19:24 CK-MB (CK-2) Rel Index 1.8 (0-4) 08/10/17 19:24 Troponin T < 0.010 ng/mL (0.00-0.029) 08/14/17 18:17 Total Protein 7.2 g/dL (6.3-8.2) 08/10/17 19:18 Albumin 3.8 g/dL (3.9-5) L 08/10/17 19:18 Albumin/Globulin Ratio 1.1 % 08/10/17 19:18 Triglycerides 90 mg/dL (2-149) 08/14/17 18:17 Cholesterol 170 mg/dL (50-199) 08/14/17 18:17 LDL Cholesterol Direct 116 mg/dL (50-130) 08/14/17 18:17 HDL Cholesterol 36 mg/dL (40-59) L 08/14/17 18:17 Cholesterol/HDL Ratio 4.72 % 08/14/17 18: TSH 2.690 mlU/mL (0.270-4.200) 08/10/17 19:24 Free T4 2.05 ng/dL (0.76-1.46) H 08/10/17 19:24 Urine Color Yellow (Yellow) 08/15/17 09:25 Urine Turbidity Clear (Clear) 08/15/17 09:25 Urine pH 7.0 (5.0-7.0) 08/15/17 09:25 Ur Specific [place] 1.008 (1.003-1.030) 08/15/17 09:25 Urine Protein <15 mg/dl mg/dL (Negative) 08/15/17 09:25 Urine Glucose (UA) Neg mg/dL (Negative) 08/15/17 09:25 Urine Ketones Tr mg/dL (Negative) 08/15/17 09:25 Urine Blood Neg (Negative) 08/15/17 09:25 Urine Nitrite Neg (Negative) 08/15/17:25 Urine Bilirubin Neg (Negative) 08/15/17 09:25 Urine Urobilinogen < 2.0 mg/dL (<2.0) 08/15/17 09:25 Ur Leukocyte Esterase Tr (Negative) 08/15/17 09:25 Urine WBC (Auto) 1.0 /HPF (0.0-6.0) 08/15/17 09:25 Urine RBC (Auto) 5.0 /HPF (0.0-6.0) 08/15/17 09:25 Urine Bacteria (Auto) 1+ /HPF (Negative) 08/15/17 09:25 Urine Mucus Few /HPF 08/15/17 09:25 Salicylates < 0.3 mg/dL (2.8-20.0) L 08/10/17 19:24 Urine Opiates Screen Presumptive negative 08/10/17 20:42 Urine Methadone Screen Presumptive negative 08/10/17 20:42 Acetaminophen < 15.0 ug/mL (10.0-30.0) 08/10/17 19:24 Ur Barbiturates Screen Presumptive negative 08/10/17 20:42 Ur Phencyclidine Scrn Presumptive negative 08/10/17 20:42 Ur Amphetamines Screen Presumptive negative 08/10/17 20:42 U Benzodiazepines Scrn Presumptive negative 08/10/17 20:42 Urine Cocaine Screen Presumptive negative 08/10/17 20:42 U Marijuana (THC) Screen Presumptive negative 08/10/17 20:42 Drugs of Abuse Note Disclamer 08/10/17 20:42 Plasma/Serum Alcohol < 0.01 % (0-0.07) 08/10/17 19:18
--- NOTE | 2017-08-15 15:09 | Progress Note ---
Subjective - Reason for Consult Consult date: 08/15/17 Reason for consult: follow up - Chief Complaint Chief complaint: Patient is nonverbal 66 year-old female unknown past medical history presents to the hospital via EMS for alteration in mental status. She has not eaten today but drinks boost via syringe when staff helps her. There is concern she may have difficulty swallowing. Per collateral information from the patient's sisters throughout her stay, they both stated that their sister has experienced bizarre behavior in the past ( paranoia and being nonverbal). They stated that the patient take medication for "some type of mental illness." The nurses reported she has been off medication for over 6 months. Mental Status Exam - Vital signs Last Vital Signs Temp 98.9 F 08/15/17 09:18 Pulse 93 H 08/15/17 09:18 Resp 18 08/15/17 09:18 BP 139/82 08/15/17 09:18 Pulse Ox 96 08/15/17 09:18 - Exam Narrative exam: appeared to respond to her name with eye contact She appeared to attempt to speak but could not slow blink rate psychomotor retardation unable to assess memory, thought process, thought content Assessment and Plan Impression: Unspecified Psychosis. psychomotor retardation, slow blink rate. r/o catatonia. probable history of catatonia DDx: R/O Mood DO Recommendation/Plan: Continue 1013 with placement to inpatient psy services. Continue Zyprexa 5 mg PO HS for psychosis. ativan 1mg tid po for catatonia. evaluate swallowing
[2017-08-15] MEDS: ATIVAN PO SCH ×2 (17:42→21:28)
[2017-08-16 05:07] LABS: BUN/Creatinine Ratio 12; Blood Urea Nitrogen 7 mg/dL (7-17); Calcium 9.3 mg/dL (8.4-10.2); Hemolysis Index 124
[2017-08-16] MEDS: ATIVAN PO SCH (08:33)
--- NOTE | 2017-08-16 10:25 | Magnetic Resonance Report ---
MRI OF THE BRAIN WITHOUT CONTRAST: HISTORY: Comatose, altered mental status PROCEDURE: Multiplanar, multisequence MR imaging of the brain without IV contrast was performed. COMPARISON: CT head without contrast dated 08/10/17. FINDINGS: Scattered areas of increased T2 signal in the periventricular and subcortical white matter is identified bilaterally. This is a nonspecific finding but is most likely related to chronic small vessel disease. No evidence for acute ischemia, hemorrhage or mass. No chronic infarct or extra-axial fluid collection. The midline structures are central. The basal cisterns are patent. Normal ventricular size. The orbital cavities and sella turcica demonstrate no abnormality. There is mild to moderate mucosal thickening in the left maxillary sinus, ethmoid air cells and right frontal sinus. The mastoid air cells are well aerated. IMPRESSION: Mild nonspecific chronic white matter changes. No acute intracranial process is identified. Mild chronic sinus disease.
[2017-08-16] MEDS: LOVENOX SUB-Q SCH (10:41)
[2017-08-16] MEDS: ZOSYN/NS 3.375GM/50ML 3.375 GM/50 ML BAG IV SCH ×3 (10:42→22:02)
[2017-08-16] MEDS: ASPIRIN PR SCH (10:45)
--- NOTE | 2017-08-16 12:15 | Progress Note ---
Assessment and Plan Assessment and plan: Patient is admitted to the hospital for the management of unspecified psychosis. Psychiatry was consulted and recommended inpatient psychiatry treatment. Patient refused to eat all workup is negative. MRI was done and is negative for acute process. Patient had episodes of fever and tachycardia and blood culture was done and positive for gram-positive cocci in pairs patient is on IV antibiotics for sepsis. Patient is not ready for discharge. Repeat blood culture and await sensitivity. History Interval history: Patient was seen and evaluated this morning, patient is non communicative. Patient open her eyes. She refused to eat but drink some boost. Patient had episodes of fever and blood culture was done which showed positive for gram- positive cocci in pairs. Hospitalist Physical - Physical exam Narrative exam: Not in cardiopulmonary distress. The patient appeared well nourished and normally developed. Vital signs as documented. Head exam is unremarkable. No scleral icterus . Neck is without jugular venous distension, thyromegaly, or carotid bruits. Lungs are clear to auscultation. Cardiac exam reveals regular rate and Rhythm. First and second heart sounds normal. No murmurs, rubs or gallops. Abdominal exam reveals normal bowel sounds, no masses, no organomegaly and no aortic enlargement. Extremities are nonedematous and both femoral and pedal pulses are normal. [employer]: non communicative. - Constitutional Vitals: Temp Pulse Resp BP Pulse Ox 98.7 F 105 H 22 171/101 95 08/16/17 07:51 08/16/17 07:51 08/16/17 07:51 08/16/17 07:51 08/16/17 07:51 General appearance: Present: no acute distress, well-nourished Results - Labs CBC & Chem 7: 08/15/17 03:54 08/16/17 04:04 Labs: Laboratory Last Values WBC 4.0 K/mm3 (4.5-11.0) L 08/15/17 03:54 RBC 4.51 M/mm3 (3.65-5.03) 08/15/17 03:54 Hgb 13.0 gm/dl (10.1-14.3) 08/15/17 03:54 Hct 38.4 % (30.3-42.9) 08/15/17 03:54 MCV 85 fl (79-97) 08/15/17 03:54 MCH 29 pg (28-32) 08/15/17 03:54 MCHC 34 % (30-34) 08/15/17 03:54 RDW 13.8 % (13.2-15.2) 08/15/17 03:54 Plt Count 384 K/mm3 (140-440) 08/15/17 03:54 Lymph % (Auto) 29.3 % (13.4-35.0) 08/15/17 03:54 [place] % (Auto) 15.2 % (0.0-7.3) H 08/15/17 03:54 Eos % (Auto) 2.6 % (0.0-4.3) 08/15/17 03:54 Baso % (Auto) 1.0 % (0.0-1.8) 08/15/17 03:54 Lymph # 1.2 K/mm3 (1.2-5.4) 08/15/17 03:54 [place] # 0.6 K/mm3 (0.0-0.8) 08/15/17 03:54 Eos # 0.1 K/mm3 (0.0-0.4) 08/15/17 03:54 Baso # 0.0 K/mm3 (0.0-0.1) 08/15/17 03:54 Add Manual Diff Complete 08/10/17 19:18 Total Counted 100 08/10/17 19:18 Seg Neutrophils % 51.9 % (40.0-70.0) 08/15/17 03:54 Seg Neuts % (Manual) 55.0 % (40.0-70.0) 08/10/17 19:18 Band Neutrophils % 1.0 % 08/10/17 19:18 Lymphocytes % (Manual) 35.0 % (13.4-35.0) 08/10/17 19:18 Reactive Lymphs % (Man) 0 % 08/10/17 19:18 Monocytes % (Manual) 9.0 % (0.0-7.3) H 08/10/17 19:18 Eosinophils % (Manual) 0 % (0.0-4.3) 08/10/17 19:18 Basophils % (Manual) 0 % (0.0-1.8) 08/10/17 19:18 Metamyelocytes % 0 % 08/10/17 19:18 Myelocytes % 0 % 08/10/17 19:18 Promyelocytes % 0 % 08/10/17 19:18 Blast Cells % 0 % 08/10/17 19:18 Nucleated RBC % Not Reportable 08/10/17 19:18 Seg Neutrophils # 2.1 K/mm3 (1.8-7.7) 08/15/17 03:54 Seg Neutrophils # Man 2.7 K/mm3 (1.8-7.7) 08/10/17 19:18 Band Neutrophils # 0.0 K/mm3 08/10/17 19:18 Lymphocytes # (Manual) 1.7 K/mm3 (1.2-5.4) 08/10/17 19:18 Abs React Lymphs (Man) 0.0 K/mm3 08/10/17 19:18 Monocytes # (Manual) 0.4 K/mm3 (0.0-0.8) 08/10/17 19:18 Eosinophils # (Manual) 0.0 K/mm3 (0.0-0.4) 08/10/17 19:18 Basophils # (Manual) 0.0 K/mm3 (0.0-0.1) 08/10/17 19:18 Metamyelocytes # 0.0 K/mm3 08/10/17 19:18 Myelocytes # 0.0 K/mm3 08/10/17 19:18 Promyelocytes # 0.0 K/mm3 08/10/17 19:18 Blast Cells # 0.0 K/mm3 08/10/17 19:18 WBC Morphology Not Reportable 08/10/17 19:18 Hypersegmented Neuts Not Reportable 08/10/17 19:18 Hyposegmented Neuts Not Reportable 08/10/17 19:18 Hypogranular Neuts Not Reportable 08/10/17 19:18 Smudge Cells Not Reportable 08/10/17 19:18 Toxic Granulation Not Reportable 08/10/17 19:18 Toxic Vacuolation Not Reportable 08/10/17 19:18 Dohle Bodies Not Reportable 08/10/17 19:18 Pelger-Huet Anomaly Not Reportable 08/10/17 19:18 Comfort Rods Not Reportable 08/10/17 19:18 Platelet Estimate Consistent w auto 08/10/17 19:18 Clumped Platelets Not Reportable 08/10/17 19:18 Plt Clumps, EDTA Not Reportable 08/10/17 19:18 Large Platelets Not Reportable 08/10/17 19:18 Giant Platelets Not Reportable 08/10/17 19:18 Platelet Satelliting Not Reportable 08/10/17 19:18 Plt Morphology Comment Not Reportable 08/10/17 19:18 RBC Morphology Not Reportable 08/10/17 19:18 Dimorphic RBCs Not Reportable 08/10/17 19:18 Polychromasia Not Reportable 08/10/17 19:18 Hypochromasia Not Reportable 08/10/17 19:18 Poikilocytosis Not Reportable 08/10/17 19:18 Anisocytosis Not Reportable 08/10/17 19:18 Microcytosis Not Reportable 08/10/17 19:18 Macrocytosis Not Reportable 08/10/17 19:18 Spherocytes Not Reportable 08/10/17 19:18 Pappenheimer Bodies Not Reportable 08/10/17 19:18 Sickle Cells Not Reportable 08/10/17 19:18 Target Cells Not Reportable 08/10/17 19:18 Tear Drop Cells Not Reportable 08/10/17 19:18 Ovalocytes Not Reportable 08/10/17 19:18 Helmet Cells Not Reportable 08/10/17 19:18 [place] Bodies Not Reportable 08/10/17 19:18 [place] Rings Not Reportable 08/10/17 19:18 [place] Cells Not Reportable 08/10/17 19:18 Bite Cells Not Reportable 08/10/17 19:18 Crenated Cell Not Reportable 08/10/17 19:18 Elliptocytes Not Reportable 08/10/17 19:18 Acanthocytes (Spur) Not Reportable 08/10/17 19:18 Rouleaux Not Reportable 08/10/17 19:18 Hemoglobin C Crystals Not Reportable 08/10/17 19:18 Schistocytes Not Reportable 08/10/17 19:18 Malaria parasites Not Reportable 08/10/17 19:18 Jo[place]ín Bodies Not Reportable 08/10/17 19:18 Hem Pathologist Commnt No 08/10/17 19:18 Sodium 134 mmol/L (137-145) L 08/16/17 04:04 Potassium 4.4 mmol/L (3.6-5.0) 08/16/17 04:04 Chloride 98.2 mmol/L (98-107) 08/16/17 04:04 Carbon Dioxide 25 mmol/L (22-30) 08/16/17 04:04 Anion Gap 15 mmol/L 08/16/17 04:04 BUN 7 mg/dL (7-17) 08/16/17 04:04 Creatinine 0.6 mg/dL (0.7-1.2) L 08/16/17 04:04 Estimated GFR > 60 ml/min 08/16/17 04:04 BUN/Creatinine Ratio 12 % 08/16/17 04:04 Glucose 126 mg/dL (65-100) H 08/16/17 04:04 POC Glucose 85 (70-105) 08/14/17 18:16 Calcium 9.3 mg/dL (8.4-10.2) 08/16/17 04:04 Magnesium 2.20 mg/dL (1.7-2.3) 08/14/17 18:17 Total Bilirubin 0.50 mg/dL (0.1-1.2) 08/10/17 19:18 AST 20 units/L (5-40) 08/10/17 19:18 ALT 13 units/L (7-56) 08/10/17 19:18 Alkaline Phosphatase 67 units/L (35-129) 08/10/17 19:18 Ammonia 39.0 umol/L (25-60) 08/10/17 19:24 Total Creatine Kinase 119 units/L (30-135) 08/10/17 19:24 CK-MB (CK-2) 2.2 ng/mL (0.0-4.0) 08/10/17 19:24 CK-MB (CK-2) Rel Index 1.8 (0-4) 08/10/17 19:24 Troponin T < 0.010 ng/mL (0.00-0.029) 08/14/17 18:17 Total Protein 7.2 g/dL (6.3-8.2) 08/10/17 19:18 Albumin 3.8 g/dL (3.9-5) L 08/10/17 19:18 Albumin/Globulin Ratio 1.1 % 08/10/17 19:18 Triglycerides 90 mg/dL (2-149) 08/14/17 18:17 Cholesterol 170 mg/dL (50-199) 08/14/17 18:17 LDL Cholesterol Direct 116 mg/dL (50-130) 08/14/17 18:17 HDL Cholesterol 36 mg/dL (40-59) L 08/14/17 18:17 Cholesterol/HDL Ratio 4.72 % 08/14/17 18:17 TSH 2.690 mlU/mL (0.270-4.200) 08/10/17 19:24 Free T4 2.05 ng/dL (0.76-1.46) H 08/10/17 19:24 Urine Color Yellow (Yellow) 08/15/17 09:25 Urine Turbidity Clear (Clear) 08/15/17:25 Urine pH 7.0 (5.0-7.0) 08/15/17 09:25 Ur Specific [place] 1.008 (1.003-1.030) 08/15/17 09:25 Urine Protein <15 mg/dl mg/dL (Negative) 08/15/17 09:25 Urine Glucose (UA) Neg mg/dL (Negative) 08/15/17 09:25 Urine Ketones Tr mg/dL (Negative) 08/15/17 09:25 Urine Blood Neg (Negative) 08/15/17 09:25 Urine Nitrite Neg (Negative) 08/15/17 09:25 Urine Bilirubin Neg (Negative) 08/15/17 09:25 Urine Urobilinogen < 2.0 mg/dL (<2.0) 08/15/17 09:25 Ur Leukocyte Esterase Tr (Negative) 08/15/17 09:25 Urine WBC (Auto) 1.0 /HPF (0.0-6.0) 08/15/17 09:25 Urine RBC (Auto) 5.0 /HPF (0.0-6.0) 08/15/17 09:25 Urine Bacteria (Auto) 1+ /HPF (Negative) 08/15/17 09:25 Urine Mucus Few /HPF 08/15/17 09:25 Salicylates < 0.3 mg/dL (2.8-20.0) L 08/10/17 19:24 Urine Opiates Screen Presumptive negative 08/10/17 20:42 Urine Methadone Screen Presumptive negative 08/10/17 20:42 Acetaminophen < 15.0 ug/mL (10.0-30.0) 08/10/17 19:24 Ur Barbiturates Screen Presumptive negative 08/10/17 20:42 Ur Phencyclidine Scrn Presumptive negative 08/10/17 20:42 Ur Amphetamines Screen Presumptive negative 08/10/17 20:42 U Benzodiazepines Scrn Presumptive negative 08/10/17 20:42 Urine Cocaine Screen Presumptive negative 08/10/17 20:42 U Marijuana (THC) Screen Presumptive negative 08/10/17 20:42 Drugs of Abuse Note Disclamer 08/10/17 20:42 Plasma/Serum Alcohol < 0.01 % (0-0.07) 08/10/17 19:18
--- NOTE | 2017-08-16 14:11 | Progress Note ---
Subjective - Reason for Consult Consult date: 08/16/17 Reason for consult: Psychiatry Follow-up - Chief Complaint Chief complaint: "Patient is nonverbal" 66 year-old female unknown past medical history presents to the hospital via EMS for alteration in mental status. Today the patient will not open her eyes, but mumbles when you call her name. Per the staff and her sister, they stated that the patient ate 100% of her yogurt and drink "some water." Per her assigned RN, the patient would take her PO medications this AM. There is concern she may have difficulty swallowing. Per collateral information from the patient's sisters throughout her stay, they both stated that their sister has experienced bizarre behavior in the past ( paranoia and being nonverbal). They stated that the patient take medication for "some type of mental illness." The nurses reported she has been off medication for over 6 months. Mental Status Exam - Vital signs Last Vital Signs Temp 98.7 F 08/16/17 07:51 Pulse 105 H 08/16/17 07:51 Resp 22 08/16/17 07:51 BP 171/101 08/16/17 07:51 Pulse Ox 95 08/16/17 07:51 - Exam Narrative exam: Unable to complete MSE because of patient's condition. Assessment and Plan Impression: Unspecified Psychosis with catatonia. Today the patient will not open her eyes, but mumbles when you call her name. MRI of the head - Negative for acute process. Psychomotor retardation. DDx: R/O Mood DO Recommendation/Plan: Continue 1013 with placement to inpatient psy services. Modify Zyprexa to Zydis 5 mg PO ODT HS for psychosis and Ativan to 1 mg IM TID for catatonia. Zyprexa Zydis can stimulate the patient's appetite. Discussed with the patient's family member possible metabolic side effects of Zyprexa. Monitor the patient's PO intake. Neuro is following patient.
[2017-08-16] MEDS: ATIVAN IM SCH ×2 (16:03→22:01)
[2017-08-16] MEDS: D5/0.45NS 1,000 ML IV SCH (16:05)
[2017-08-17] MEDS: D5/0.45NS 1,000 ML IV SCH ×2 (03:20→13:33)
[2017-08-17 04:35] LABS: BUN/Creatinine Ratio 11; Blood Urea Nitrogen 8 mg/dL (7-17); Calcium 8.7 mg/dL (8.4-10.2); Hemolysis Index 31
[2017-08-17] MEDS: ZOSYN/NS 3.375GM/50ML 3.375 GM/50 ML BAG IV SCH ×2 (07:09→13:28)
[2017-08-17] MEDS: ATIVAN IM SCH ×2 (08:20→14:05)
--- NOTE | 2017-08-17 09:33 | Consultation ---
<LAVERNEJACI PEÑAMilly - Last Filed: 08/17/17 14:53> History of Present Illness - Reason for Consult Consult date: 08/17/17 sepsis/blood culture positive Requesting physician: OPAL LESTER - History of Present Illness 66 year-old female with a history of catatonia presents to the ED via EMS for alteration in mental status. Patient is non-verbal. Per nurse she has been sleeping very deeply all morning. She has not eaten today but drinks boost via syringe when staff helps her. In the ER her temperature was 98.9, pulse 76, respiratory rate 18, saturation 99 %, blood pressure 159/94. White blood cell count was 4.9, Hgb 13.1, platelets 275. creatinine 0.6. Cultures from 08/16 growing gram positive rods and gram positive cocci in pairs. Her CXR 08/[address] 08/10 negative. Brain MRI without contrast 08/16 showed non specific chronic white matter changes ; no acute intracranial process is identified; mild chronic sinus disease. Patient was started on zosyn on 08/16. ID service is seeing her today to help with further antibiotic management. Microbiology: Blood cultures: 08/16 growing gram positive rods and gram positive cocci in pairs Repiratory cultures: Urine cultures Current Antimicrobials: Zosyn 08/16 Previous Antimicrobials: Past History Past Medical History: other (Unable to obtain) Past Surgical History: Other (Unable to obtain) Social history: other (Unable to obtain) Medications and Allergies Allergies Allergy/AdvReac Type Severity Reaction Status Date / Time No Known Allergies Allergy Unverified 08/10/17 18:27 Home Medications Medication Instructions Recorded Confirmed Last Taken Type No Known Home Medications [No 08/11/17 08/11/17 Unknown History Reported Home Medications] Active Meds: Active Medications Acetaminophen (Tylenol) 650 mg PO Q4H PRN PRN Reason: Pain MILD(1-3)/Fever >100.5/PATINO Last Admin: 08/13/17 22:02 Dose: 650 mg Lipase/Protease/Amylase (Pancreaze Dr 10,500 Unit) 1 each FEEDTUBE PRN PRN PRN Reason: For Clogged Feeding Tube Aspirin (Aspirin) 300 mg AL QDAY ELIEL Last Admin: 08/16/17 10:45 Dose: 300 mg Bisacodyl (Dulcolax) 10 mg AL QDAY PRN PRN Reason: Constipation unrelieved by MOM Enoxaparin Sodium (Lovenox) 40 mg SUB-Q QDAY [facility] Last Admin: 08/16/17 10:41 Dose: 40 mg Dextrose/Sodium Chloride (D5/0.45ns) 1,000 mls @ 100 mls/hr IV DIRECT ELIEL Last Admin: 08/17/17 03:20 Dose: 100 mls/hr Piperacillin Sod/Tazobactam Sod (Zosyn/Ns 3.375gm/50ml) 3.375 gm in 50 mls @ 100 mls/hr IV Q8HR ELIEL PRN Reason: Protocol Last Admin: 08/17/17 07:09 Dose: 100 mls/hr Lorazepam (Ativan) 1 mg IM TID [facility] Last Admin: 08/17/17 08:20 Dose: Not Given Magnesium Hydroxide (Milk Of Magnesia) 30 ml PO Q4H PRN PRN Reason: Constipation Olanzapine (Zyprexa Zydis) 5 mg PO HS [facility] Last Admin: 08/16/17 22:01 Dose: 5 mg Ondansetron HCl (Zofran) 4 mg IV Q8H PRN PRN Reason: N/V unrelieved by Reglan Last Admin: 08/11/17 22:51 Dose: 4 mg Simple Syrup (Simple Syrup) 15 ml FEEDTUBE PRN PRN PRN Reason: Hypoglycemia Simple Syrup (Simple Syrup) 30 ml FEEDTUBE PRN PRN PRN Reason: Hypoglycemia Sodium Bicarbonate (Sodium Bicarbonate) 325 mg FEEDTUBE PRN PRN PRN Reason: For Clogged Feeding Tube Physical Examination - Physical Exam Narrative exam: General appearance: lethargic, very difficult to arouse, non verbal, sitter at bedside Eyes: anicteric sclerae, moist conjunctivae; no lid-lag; PERRLA HENT: Atraumatic; oropharynx clear Neck: Trachea midline; supple, no thyromegaly or lymphadenopathy Lungs: CTAB CV: RRR, no murmurs Abdomen: Soft, non-tender; no masses or hepatosplenomegaly Extremities: warm, dry, and intact Skin: Normal temperature, turgor and texture; no rash, ulcers or subcutaneous nodules Psych: non verbal Neuro: non verbal Lines: No CVL / PICC - Constitutional Vitals: Vital Signs Temp Pulse Resp BP Pulse Ox 98.2 F 108 H 18 108/59 96 08/17/17 08:33 08/17/17 08:33 08/17/17 08:24 08/17/17 08:24 08/17/17 03:56 Temperature -Last 24 Hours Temperature 98.2 F Temperature 98.3 F Temperature 98.4 F Temperature 99.3 F Results - Labs CBC & Chem 7: 08/15/17 03:54 08/17/17 03:44 Labs: Abnormal lab results 08/17/17 Range/Units 03:44 Glucose 129 H (65-100) mg/dL Assessment and Plan Assessment: 1) SIRS: Not present on admission, manifested by fever, tachycardia, leukopenia , and hypotension. -08/16 growing gram positive rods and gram positive cocci in pairs. could be contaminant 3) Encephalopathy. Unclear etilology. ? due to underlyng psych disorder. MRI of brain negative 4) Unspecified Psychosis with catatonia 5) Hypokalemia; resolved Plan: -obtain CRP -stop zosyn, culture might have been a contaminant. will observe off antibiotic -f/u blood cultures 08/16 -Psych following Thank you Dr. Lester for your consultation, will follow up with you. Chandan Galeas NP for Dr. Geovanna Steele MD Infectious Diseases Specialist [facility] M [phone] [id number] [phone] <GEOVANNA STEELE - Last Filed: 08/17/17 17:28> Medications and Allergies Active Meds: Active Medications Acetaminophen (Tylenol) 650 mg PO Q4H PRN PRN Reason: Pain MILD(1-3)/Fever >100.5/PATINO Last Admin: 08/13/17 22:02 Dose: 650 mg Lipase/Protease/Amylase (Pancreaze Dr 10,500 Unit) 1 each FEEDTUBE PRN PRN PRN Reason: For Clogged Feeding Tube Aspirin (Aspirin) 300 mg AL QDAY [facility] Last Admin: 08/17/17 09:36 Dose: 300 mg Bisacodyl (Dulcolax) 10 mg AL QDAY PRN PRN Reason: Constipation unrelieved by MOM Enoxaparin Sodium (Lovenox) 40 mg SUB-Q QDAY [facility] Last Admin: 08/17/17 09:36 Dose: 40 mg Dextrose/Sodium Chloride (D5/0.45ns) 1,000 mls @ 100 mls/hr IV DIRECT [facility] Last Admin: 08/17/17 13:33 Dose: 100 mls/hr Lorazepam (Ativan) 1 mg IM TID [facility] Last Admin: 08/17/17 14:05 Dose: Not Given Magnesium Hydroxide (Milk Of Magnesia) 30 ml PO Q4H PRN PRN Reason: Constipation Olanzapine (Zyprexa Zydis) 5 mg PO HS [facility] Last Admin: 08/16/17 22:01 Dose: 5 mg Ondansetron HCl (Zofran) 4 mg IV Q8H PRN PRN Reason: N/V unrelieved by Sarah Last Admin: 08/11/17 22:51 Dose: 4 mg Simple Syrup (Simple Syrup) 15 ml FEEDTUBE PRN PRN PRN Reason: Hypoglycemia Simple Syrup (Simple Syrup) 30 ml FEEDTUBE PRN PRN PRN Reason: Hypoglycemia Sodium Bicarbonate (Sodium Bicarbonate) 325 mg FEEDTUBE PRN PRN PRN Reason: For Clogged Feeding Tube Physical Examination - Constitutional Vitals: Vital Signs Temp Pulse Resp BP Pulse Ox 98.2 F 108 H 18 108/59 96 08/17/17 08:33 08/17/17 10:00 08/17/17 10:00 08/17/17 08:24 08/17/17 10:00 Temperature -Last 24 Hours Temperature 98.2 F Temperature 98.3 F Temperature 98.4 F Results - Labs CBC & Chem 7: 08/15/17 03:54 08/17/17 03:44 Labs: Abnormal lab results 08/17/17 08/17/17 Range/Units 03:44 10:19 Glucose 129 H (65-100) mg/dL C-Reactive Protein 7.60 H (0.00-1.30) mg/dL
[2017-08-17] MEDS: LOVENOX SUB-Q SCH (09:36)
[2017-08-17] MEDS: ASPIRIN PR SCH (09:36)
--- NOTE | 2017-08-17 10:43 | Progress Note ---
Assessment and Plan Assessment and plan: Acute encephalopathy/ Unspecified Psychosis with catatonia. Psych following. Continue Zyprexa and Ativan. Head CT 08/10 negative. Brain MRI without contrast 08/16 showed non specific chronic white matter changes; no acute intracranial process is identified; mild chronic sinus disease. Bacteremia. Blood cultures from 08/16 growing gram positive rods and gram positive cocci in pairs. Await ID and sensitivities. ID following Depression Mental health record shows a history of depression, unknown medication management Hypokalemia Replenished, Now resolved Mild protein malnutrition Nutrition consulted DVT prophylaxis Lovenox History Interval history: No new issues overnight. Hospitalist Physical - Constitutional Vitals: Temp Pulse Resp BP Pulse Ox 98.2 F 108 H 18 108/59 96 08/17/17 08:33 08/17/17 10:00 08/17/17 10:00 08/17/17 08:24 08/17/17 10:00 General appearance: Present: no acute distress, well-nourished - EENT Eyes: Present: PERRL, EOM intact ENT: hearing intact, clear oral mucosa, dentition normal - Neck Neck: Present: supple, normal ROM - Respiratory Respiratory effort: normal Respiratory: bilateral: CTA - Cardiovascular Rhythm: regular Heart Sounds: Present: S1 & S2. Absent: gallop, rub - Extremities Extremities: no ischemia, No edema, Full ROM - Abdominal General gastrointestinal: soft, non-tender, non-distended, normal bowel sounds - Integumentary Integumentary: Present: clear, warm, dry - Neurologic Neurologic: CNII-XII intact, moves all extremities Results - Labs CBC & Chem 7: 08/15/17 03:54 08/17/17 03:44 Labs: Laboratory Last Values WBC 4.0 K/mm3 (4.5-11.0) L 08/15/17 03:54 RBC 4.51 M/mm3 (3.65-5.03) 08/15/17 03:54 Hgb 13.0 gm/dl (10.1-14.3) 08/15/17 03:54 Hct 38.4 % (30.3-42.9) 08/15/17 03:54 MCV 85 fl (79-97) 08/15/17 03:54 MCH 29 pg (28-32) 08/15/17 03:54 MCHC 34 % (30-34) 08/15/17 03:54 RDW 13.8 % (13.2-15.2) 08/15/17 03:54 Plt Count 384 K/mm3 (140-440) 08/15/17 03:54 Lymph % (Auto) 29.3 % (13.4-35.0) 08/15/17 03:54 [place] % (Auto) 15.2 % (0.0-7.3) H 08/15/17 03:54 Eos % (Auto) 2.6 % (0.0-4.3) 08/15/17 03:54 Baso % (Auto) 1.0 % (0.0-1.8) 08/15/17 03:54 Lymph # 1.2 K/mm3 (1.2-5.4) 08/15/17 03:54 [place] # 0.6 K/mm3 (0.0-0.8) 08/15/17 03:54 Eos # 0.1 K/mm3 (0.0-0.4) 08/15/17 03:54 Baso # 0.0 K/mm3 (0.0-0.1) 08/15/17 03:54 Add Manual Diff Complete 08/10/17 19:18 Total Counted 100 08/10/17 19:18 Seg Neutrophils % 51.9 % (40.0-70.0) 08/15/17 03:54 Seg Neuts % (Manual) 55.0 % (40.0-70.0) 08/10/17 19:18 Band Neutrophils % 1.0 % 08/10/17 19:18 Lymphocytes % (Manual) 35.0 % (13.4-35.0) 08/10/17 19:18 Reactive Lymphs % (Man) 0 % 08/10/17 19:18 Monocytes % (Manual) 9.0 % (0.0-7.3) H 08/10/17 19:18 Eosinophils % (Manual) 0 % (0.0-4.3) 08/10/17 19:18 Basophils % (Manual) 0 % (0.0-1.8) 08/10/17 19:18 Metamyelocytes % 0 % 08/10/17 19:18 Myelocytes % 0 % 08/10/17 19:18 Promyelocytes % 0 % 08/10/17 19:18 Blast Cells % 0 % 08/10/17 19:18 Nucleated RBC % Not Reportable 08/10/17 19:18 Seg Neutrophils # 2.1 K/mm3 (1.8-7.7) 18 03:54 Seg Neutrophils # Man 2.7 K/mm3 (1.8-7.7) 08/10/17 19:18 Band Neutrophils # 0.0 K/mm3 08/10/17 19:18 Lymphocytes # (Manual) 1.7 K/mm3 (1.2-5.4) 08/10/17 19:18 Abs React Lymphs (Man) 0.0 K/mm3 08/10/17 19:18 Monocytes # (Manual) 0.4 K/mm3 (0.0-0.8) 08/10/17 19:18 Eosinophils # (Manual) 0.0 K/mm3 (0.0-0.4) 08/10/17 19:18 Basophils # (Manual) 0.0 K/mm3 (0.0-0.1) 08/10/17 19:18 Metamyelocytes # 0.0 K/mm3 08/10/17 19:18 Myelocytes # 0.0 K/mm3 08/10/17 19:18 Promyelocytes # 0.0 K/mm3 08/10/17 19:18 Blast Cells # 0.0 K/mm3 08/10/17 19:18 WBC Morphology Not Reportable 08/10/17 19:18 Hypersegmented Neuts Not Reportable 08/10/17 19:18 Hyposegmented Neuts Not Reportable 08/10/17 19:18 Hypogranular Neuts Not Reportable 08/10/17 19:18 Smudge Cells Not Reportable 08/10/17 19:18 Toxic Granulation Not Reportable 08/10/17 19:18 Toxic Vacuolation Not Reportable 08/10/17 19:18 Dohle Bodies Not Reportable 08/10/17 19:18 Pelger-Huet Anomaly Not Reportable 08/10/17 19:18 Comfort Rods Not Reportable 08/10/17 19:18 Platelet Estimate Consistent w auto 08/10/17 19:18 Clumped Platelets Not Reportable 08/10/17 19:18 Plt Clumps, EDTA Not Reportable 08/10/17 19:18 Large Platelets Not Reportable 08/10/17 19:18 Giant Platelets Not Reportable 08/10/17 19:18 Platelet Satelliting Not Reportable 08/10/17 19:18 Plt Morphology Comment Not Reportable 08/10/17 19:18 RBC Morphology Not Reportable 08/10/17 19:18 Dimorphic RBCs Not Reportable 08/10/17 19:18 Polychromasia Not Reportable 08/10/17 19:18 Hypochromasia Not Reportable 08/10/17 19:18 Poikilocytosis Not Reportable 08/10/17 19:18 Anisocytosis Not Reportable 08/10/17 19:18 Microcytosis Not Reportable 08/10/17 19:18 Macrocytosis Not Reportable 08/10/17 19:18 Spherocytes Not Reportable 08/10/17 19:18 Pappenheimer Bodies Not Reportable 08/10/17 19:18 Sickle Cells Not Reportable 08/10/17 19:18 Target Cells Not Reportable 08/10/17 19:18 Tear Drop Cells Not Reportable 08/10/17 19:18 Ovalocytes Not Reportable 08/10/17 19:18 Helmet Cells Not Reportable 08/10/17 19:18 [place] Bodies Not Reportable 08/10/17 19:18 [place] Rings Not Reportable 08/10/17 19:18 [place] Cells Not Reportable 08/10/17 19:18 Bite Cells Not Reportable 08/10/17 19:18 Crenated Cell Not Reportable 08/10/17 19:18 Elliptocytes Not Reportable 08/10/17 19:18 Acanthocytes (Spur) Not Reportable 08/10/17 19:18 Rouleaux Not Reportable 08/10/17 19:18 Hemoglobin C Crystals Not Reportable 08/10/17 19:18 Schistocytes Not Reportable 08/10/17 19:18 Malaria parasites Not Reportable 08/10/17 19:18 [place] Bodies Not Reportable 08/10/17 19:18 Hem Pathologist Commnt No 08/10/17 19:18 Sodium 141 mmol/L (137-145) D 08/17/17 03:44 Potassium 3.8 mmol/L (3.6-5.0) 08/17/17 03:44 Chloride 101.6 mmol/L (98-107) 08/17/17 03:44 Carbon Dioxide 24 mmol/L (22-30) 08/17/17 03:44 Anion Gap 19 mmol/L 08/17/17 03:44 BUN 8 mg/dL (7-17) 08/17/17 03:44 Creatinine 0.7 mg/dL (0.7-1.2) 08/17/17 03:44 Estimated GFR > 60 ml/min 08/17/17 03:44 BUN/Creatinine Ratio 11 % 08/17/17 03:44 Glucose 129 mg/dL (65-100) H 08/17/17 03:44 POC Glucose 85 (70-105) 08/14/17 18:16 Calcium 8.7 mg/dL (8.4-10.2) 08/17/17 03:44 Magnesium 2.20 mg/dL (1.7-2.3) 08/14/17 18:17 Total Bilirubin 0.50 mg/dL (0.1-1.2) 08/10/17 19:18 AST 20 units/L (5-40) 08/10/17 19:18 ALT 13 units/L (7-56) 08/10/17 19:18 Alkaline Phosphatase 67 units/L (35-129) 08/10/17 19:18 Ammonia 39.0 umol/L (25-60) 08/10/17 19:24 Total Creatine Kinase 119 units/L (30-135) 08/10/17 19:24 CK-MB (CK-2) 2.2 ng/mL (0.0-4.0) 08/10/17 19:24 CK-MB (CK-2) Rel Index 1.8 (0-4) 08/10/17 19:24 Troponin T < 0.010 ng/mL (0.00-0.029) 08/14/17 18:17 Total Protein 7.2 g/dL (6.3-8.2) 08/10/17 19:18 Albumin 3.8 g/dL (3.9-5) L 08/10/17 19:18 Albumin/Globulin Ratio 1.1 % 08/10/17 19:18 Triglycerides 90 mg/dL (2-149) 08/14/17 18:17 Cholesterol 170 mg/dL (50-199) 08/14/17 18: LDL Cholesterol Direct 116 mg/dL (50-130) 08/14/17 18: HDL Cholesterol 36 mg/dL (40-59) L 08/14/17 18: Cholesterol/HDL Ratio 4.72 % 08/14/17 18: TSH 2.690 mlU/mL (0.270-4.200) 08/10/17 19: Free T4 2.05 ng/dL (0.76-1.46) H 08/10/17 19:24 Urine Color Yellow (Yellow) 08/15/17 09:25 Urine Turbidity Clear (Clear) 08/15/17:25 Urine pH 7.0 (5.0-7.0) 08/15/17 09:25 Ur Specific [place] 1.008 (1.003-1.030) 08/15/17 09:25 Urine Protein <15 mg/dl mg/dL (Negative) 08/15/17:25 Urine Glucose (UA) Neg mg/dL (Negative) 08/15/17:25 Urine Ketones Tr mg/dL (Negative) 08/15/17 09:25 Urine Blood Neg (Negative) 08/15/17 09:25 Urine Nitrite Neg (Negative) 08/15/17:25 Urine Bilirubin Neg (Negative) 08/15/17 09:25 Urine Urobilinogen < 2.0 mg/dL (<2.0) 08/15/17 09:25 Ur Leukocyte Esterase Tr (Negative) 08/15/17 09:25 Urine WBC (Auto) 1.0 /HPF (0.0-6.0) 08/15/17 09:25 Urine RBC (Auto) 5.0 /HPF (0.0-6.0) 08/15/17 09:25 Urine Bacteria (Auto) 1+ /HPF (Negative) 08/15/17 09:25 Urine Mucus Few /HPF 08/15/17 09:25 Salicylates < 0.3 mg/dL (2.8-20.0) L 08/10/17 19:24 Urine Opiates Screen Presumptive negative 08/10/17 20:42 Urine Methadone Screen Presumptive negative 08/10/17 20:42 Acetaminophen < 15.0 ug/mL (10.0-30.0) 08/10/17 19:24 Ur Barbiturates Screen Presumptive negative 08/10/17 20:42 Ur Phencyclidine Scrn Presumptive negative 08/10/17 20:42 Ur Amphetamines Screen Presumptive negative 08/10/17 20:42 U Benzodiazepines Scrn Presumptive negative 08/10/17 20:42 Urine Cocaine Screen Presumptive negative 08/10/17 20:42 U Marijuana (THC) Screen Presumptive negative 08/10/17 20:42 Drugs of Abuse Note Disclamer 08/10/17 20:42 Plasma/Serum Alcohol < 0.01 % (0-0.07) 08/10/17 19:18
--- NOTE | 2017-08-17 13:59 | Progress Note ---
Subjective - Reason for Consult Consult date: 08/17/17 Reason for consult: Psychiatry Follow-up - Chief Complaint Chief complaint: "Patient is nonverbal" 66 year-old female unknown past medical history presents to the hospital via EMS for alteration in mental status. There's no change in the patient's presentation. Per the MAR the patient took her PO medication (Zyprexa Zydis) last night. No gestures of SI/HI's. Per collateral information from the patient's sisters throughout her stay, they both stated that their sister has experienced bizarre behavior in the past ( paranoia and being nonverbal). They stated that the patient take medication for "some type of mental illness." The nurses reported she has been off medication for over 6 months. Mental Status Exam - Vital signs Last Vital Signs Temp 98.2 F 08/17/17 08:33 Pulse 108 H 08/17/17 10:00 Resp 18 08/17/17 10:00 BP 108/59 08/17/17 08:24 Pulse Ox 96 08/17/17 10:00 - Exam Narrative exam: Unable to complete MSE because of patient's condition. Assessment and Plan Impression: Unspecified Psychosis with catatonia. Today the patient will not open her eyes, but mumbles when you call her name. MRI of the head - Negative for acute process. Psychomotor retardation. DDx: R/O Mood DO Recommendation/Plan: Continue 1013. Continue Zyprexa Zydis 5 mg PO ODT HS for psychosis and Ativan to 1 mg IM TID for catatonia. Zyprexa Zydis can stimulate the patient's appetite. Discussed with the patient's family member possible metabolic side effects of Zyprexa. Monitor the patient's PO intake. Neuro and ID is following patient.
[2017-08-18] MEDS: D5/0.45NS 1,000 ML IV SCH ×2 (00:14→11:29)
[2017-08-18 05:03] LABS: Basophils # (Auto) 0.1 K/mm3 (0.0-0.1); Basophils % (Auto) 1.2 % (0.0-1.8); Eosinophils # (Auto) 0.1 K/mm3 (0.0-0.4); Hematocrit 35.9 % (30.3-42.9); Lymphocytes # (Auto) 1.5 K/mm3 (1.2-5.4); Lymphocytes % (Auto) 19.5 % (13.4-35.0); Mean Corpuscular HGB Conc 34 % (30-34); Mean Corpuscular Hemoglobin 29 pg (28-32); Mean Corpuscular Volume 85 fl (79-97); Monocytes # (Auto) 0.9 K/mm3 (0.0-0.8); Monocytes % (Auto) 11.5 % (0.0-7.3); Platelet Count 371 K/mm3 (140-440); Red Cell Distribution Width 13.8 % (13.2-15.2)
[2017-08-18 05:21] LABS: BUN/Creatinine Ratio 8; Blood Urea Nitrogen 5 mg/dL (7-17); Calcium 8.1 mg/dL (8.4-10.2); Hemolysis Index 26
[2017-08-18] MEDS: ATIVAN IM SCH ×4 (06:29→21:36)
--- NOTE | 2017-08-18 09:17 | Progress Note ---
Assessment and Plan Assessment and plan: Acute encephalopathy/ Unspecified Psychosis with catatonia. Psych following. Continue Zyprexa and Ativan. Head CT 08/10 negative. Brain MRI without contrast 08/16 showed non specific chronic white matter changes; no acute intracranial process is identified; mild chronic sinus disease. If fevers return and remains encephalopatic, will need LP and CSF studies. Bacteremia. Blood cultures from 08/16 growing gram positive rods and gram positive cocci in pairs. Probably contaminants. Await ID and sensitivities. ID following. Observe off antibiotics per ID recommendations Depression Mental health record shows a history of depression, unknown medication management Hypokalemia Replenished, Now resolved Mild protein malnutrition Nutrition consulted DVT prophylaxis Lovenox History Interval history: No new issues overnight. Hospitalist Physical - Constitutional Vitals: Temp Pulse Resp BP Pulse Ox 32.1 F L 71 18 118/68 99 08/18/17 05:27 08/18/17 05:27 08/18/17 05:27 08/18/17 05:27 08/18/17 05:27 General appearance: Present: no acute distress, well-nourished - EENT Eyes: Present: PERRL, EOM intact ENT: hearing intact, clear oral mucosa, dentition normal - Neck Neck: Present: supple, normal ROM - Respiratory Respiratory effort: normal Respiratory: bilateral: CTA - Cardiovascular Rhythm: regular Heart Sounds: Present: S1 & S2. Absent: gallop, rub - Extremities Extremities: no ischemia, No edema, Full ROM - Abdominal General gastrointestinal: soft, non-tender, non-distended, normal bowel sounds - Integumentary Integumentary: Present: clear, warm, dry - Neurologic Neurologic: CNII-XII intact, moves all extremities Results - Labs CBC & Chem 7: 08/18/17 04:23 08/18/17 04:23 Labs: Laboratory Last Values WBC 7.9 K/mm3 (4.5-11.0) 08/18/17 04:23 RBC 4.20 M/mm3 (3.65-5.03) 08/18/17 04:23 Hgb 12.0 gm/dl (10.1-14.3) 08/18/17 04:23 Hct 35.9 % (30.3-42.9) 08/18/17 04:23 MCV 85 fl (79-97) 08/18/17 04:23 MCH 29 pg (28-32) 08/18/17 04:23 MCHC 34 % (30-34) 08/18/17 04:23 RDW 13.8 % (13.2-15.2) 08/18/17 04:23 Plt Count 371 K/mm3 (140-440) 08/18/17 04:23 Lymph % (Auto) 19.5 % (13.4-35.0) 08/18/17 04:23 [place] % (Auto) 11.5 % (0.0-7.3) H 08/18/17 04:23 Eos % (Auto) 1.0 % (0.0-4.3) 08/18/17 04:23 Baso % (Auto) 1.2 % (0.0-1.8) 08/18/17 04:23 Lymph # 1.5 K/mm3 (1.2-5.4) 08/18/17 04:23 [place] # 0.9 K/mm3 (0.0-0.8) H 08/18/17 04:23 Eos # 0.1 K/mm3 (0.0-0.4) 08/18/17 04:23 Baso # 0.1 K/mm3 (0.0-0.1) 08/18/17 04:23 Add Manual Diff Complete 08/10/17 19:18 Total Counted 100 08/10/17 19:18 Seg Neutrophils % 66.8 % (40.0-70.0) 08/18/17 04:23 Seg Neuts % (Manual) 55.0 % (40.0-70.0) 08/10/17 19:18 Band Neutrophils % 1.0 % 08/10/17 19:18 Lymphocytes % (Manual) 35.0 % (13.4-35.0) 08/10/17 19:18 Reactive Lymphs % (Man) 0 % 08/10/17 19:18 Monocytes % (Manual) 9.0 % (0.0-7.3) H 08/10/17 19:18 Eosinophils % (Manual) 0 % (0.0-4.3) 08/10/17 19:18 Basophils % (Manual) 0 % (0.0-1.8) 08/10/17 19:18 Metamyelocytes % 0 % 08/10/17 19:18 Myelocytes % 0 % 08/10/17 19:18 Promyelocytes % 0 % 08/10/17 19:18 Blast Cells % 0 % 08/10/17 19:18 Nucleated RBC % Not Reportable 08/10/17 19:18 Seg Neutrophils # 5.3 K/mm3 (1.8-7.7) 08/18/17 04:23 Seg Neutrophils # Man 2.7 K/mm3 (1.8-7.7) 08/10/17 19:18 Band Neutrophils # 0.0 K/mm3 08/10/17 19:18 Lymphocytes # (Manual) 1.7 K/mm3 (1.2-5.4) 08/10/17 19:18 Abs React Lymphs (Man) 0.0 K/mm3 08/10/17 19:18 Monocytes # (Manual) 0.4 K/mm3 (0.0-0.8) 08/10/17 19:18 Eosinophils # (Manual) 0.0 K/mm3 (0.0-0.4) 08/10/17 19:18 Basophils # (Manual) 0.0 K/mm3 (0.0-0.1) 08/10/17 19:18 Metamyelocytes # 0.0 K/mm3 08/10/17 19:18 Myelocytes # 0.0 K/mm3 08/10/17 19:18 Promyelocytes # 0.0 K/mm3 08/10/17 19:18 Blast Cells # 0.0 K/mm3 08/10/17 19:18 WBC Morphology Not Reportable 08/10/17 19:18 Hypersegmented Neuts Not Reportable 08/10/17 19:18 Hyposegmented Neuts Not Reportable 08/10/17 19:18 Hypogranular Neuts Not Reportable 08/10/17 19:18 Smudge Cells Not Reportable 08/10/17 19:18 Toxic Granulation Not Reportable 08/10/17 19:18 Toxic Vacuolation Not Reportable 08/10/17 19:18 Dohle Bodies Not Reportable 08/10/17 19:18 [place] Anomaly Not Reportable 08/10/17 19:18 Comfort Rods Not Reportable 08/10/17 19:18 Platelet Estimate Consistent w auto 08/10/17 19:18 Clumped Platelets Not Reportable 08/10/17 19:18 Plt Clumps, EDTA Not Reportable 08/10/17 19:18 Large Platelets Not Reportable 08/10/17 19:18 Giant Platelets Not Reportable 08/10/17 19:18 Platelet Satelliting Not Reportable 08/10/17 19:18 Plt Morphology Comment Not Reportable 08/10/17 19:18 RBC Morphology Not Reportable 08/10/17 19:18 Dimorphic RBCs Not Reportable 08/10/17 19:18 Polychromasia Not Reportable 08/10/17 19:18 Hypochromasia Not Reportable 08/10/17 19:18 Poikilocytosis Not Reportable 08/10/17 19:18 Anisocytosis Not Reportable 08/10/17 19:18 Microcytosis Not Reportable 08/10/17 19:18 Macrocytosis Not Reportable 08/10/17 19:18 Spherocytes Not Reportable 08/10/17 19:18 Pappenheimer Bodies Not Reportable 08/10/17 19:18 Sickle Cells Not Reportable 08/10/17 19:18 Target Cells Not Reportable 08/10/17 19:18 Tear Drop Cells Not Reportable 08/10/17 19:18 Ovalocytes Not Reportable 08/10/17 19:18 Helmet Cells Not Reportable 08/10/17 19:18 [place] Bodies Not Reportable 08/10/17 19:18 [place] Rings Not Reportable 08/10/17 19:18 [place] Cells Not Reportable 08/10/17 19:18 Bite Cells Not Reportable 08/10/17 19:18 Crenated Cell Not Reportable 08/10/17 19:18 Elliptocytes Not Reportable 08/10/17 19:18 Acanthocytes (Spur) Not Reportable 08/10/17 19:18 Rouleaux Not Reportable 08/10/17 19:18 Hemoglobin C Crystals Not Reportable 08/10/17 19:18 Schistocytes Not Reportable 08/10/17 19:18 Malaria parasites Not Reportable 08/10/17 19:18 [place] Bodies Not Reportable 08/10/17 19:18 Hem Pathologist Commnt No 08/10/17 19:18 Sodium 143 mmol/L (137-145) 08/18/17 04:23 Potassium 3.3 mmol/L (3.6-5.0) L 08/18/17 04:23 Chloride 104.3 mmol/L (98-107) 08/18/17 04:23 Carbon Dioxide 26 mmol/L (22-30) 08/18/17 04:23 Anion Gap 16 mmol/L 08/18/17 04:23 BUN 5 mg/dL (7-17) L 08/18/17 04:23 Creatinine 0.6 mg/dL (0.7-1.2) L 08/18/17 04:23 Estimated GFR > 60 ml/min 08/18/17 04:23 BUN/Creatinine Ratio 8 % 08/18/17 04:23 Glucose 134 mg/dL (65-100) H 08/18/17 04:23 POC Glucose 85 (70-105) 08/14/17 18:16 Calcium 8.1 mg/dL (8.4-10.2) L 08/18/17 04:23 Magnesium 2.20 mg/dL (1.7-2.3) 08/14/17 18:17 Total Bilirubin 0.50 mg/dL (0.1-1.2) 08/10/17 19:18 AST 20 units/L (5-40) 08/10/17 19:18 ALT 13 units/L (7-56) 08/10/17 19:18 Alkaline Phosphatase 67 units/L (35-129) 08/10/17 19:18 Ammonia 39.0 umol/L (25-60) 08/10/17 19:24 Total Creatine Kinase 119 units/L (30-135) 08/10/17 19:24 CK-MB (CK-2) 2.2 ng/mL (0.0-4.0) 08/10/17 19:24 CK-MB (CK-2) Rel Index 1.8 (0-4) 08/10/17 19:24 Troponin T < 0.010 ng/mL (0.00-0.029) 08/14/17 18:17 C-Reactive Protein 7.60 mg/dL (0.00-1.30) H 08/17/17 10:19 Total Protein 7.2 g/dL (6.3-8.2) 08/10/17 19:18 Albumin 3.8 g/dL (3.9-5) L 08/10/17: Albumin/Globulin Ratio 1.1 % 08/10/17: Triglycerides 90 mg/dL (2-149) 08/14/17 18: Cholesterol 170 mg/dL (50-199) 08/14/17 18:17 LDL Cholesterol Direct 116 mg/dL (50-130) 08/14/17 18:17 HDL Cholesterol 36 mg/dL (40-59) L 08/14/17 18: Cholesterol/HDL Ratio 4.72 % 08/14/17 18: TSH 2.690 mlU/mL (0.270-4.200) 08/10/17 19: Free T4 2.05 ng/dL (0.76-1.46) H 08/10/17 19: Urine Color Yellow (Yellow) 08/15/17 09:25 Urine Turbidity Clear (Clear) 08/15/17 09:25 Urine pH 7.0 (5.0-7.0) 08/15/17 09:25 Ur Specific [place] 1.008 (1.003-1.030) 08/15/17 09:25 Urine Protein <15 mg/dl mg/dL (Negative) 08/15/17 09:25 Urine Glucose (UA) Neg mg/dL (Negative) 08/15/17 09:25 Urine Ketones Tr mg/dL (Negative) 08/15/17 09:25 Urine Blood Neg (Negative) 08/15/17 09:25 Urine Nitrite Neg (Negative) 08/15/17 09:25 Urine Bilirubin Neg (Negative) 08/15/17 09:25 Urine Urobilinogen < 2.0 mg/dL (<2.0) 08/15/17 09:25 Ur Leukocyte Esterase Tr (Negative) 08/15/17 09:25 Urine WBC (Auto) 1.0 /HPF (0.0-6.0) 08/15/17 09:25 Urine RBC (Auto) 5.0 /HPF (0.0-6.0) 08/15/17 09:25 Urine Bacteria (Auto) 1+ /HPF (Negative) 08/15/17 09:25 Urine Mucus Few /HPF 08/15/17 09:25 Salicylates < 0.3 mg/dL (2.8-20.0) L 08/10/17 19:24 Urine Opiates Screen Presumptive negative 08/10/17 20:42 Urine Methadone Screen Presumptive negative 08/10/17 20:42 Acetaminophen < 15.0 ug/mL (10.0-30.0) 08/10/17 19:24 Ur Barbiturates Screen Presumptive negative 08/10/17 20:42 Ur Phencyclidine Scrn Presumptive negative 08/10/17 20:42 Ur Amphetamines Screen Presumptive negative 08/10/17 20:42 U Benzodiazepines Scrn Presumptive negative 08/10/17 20:42 Urine Cocaine Screen Presumptive negative 08/10/17 20:42 U Marijuana (THC) Screen Presumptive negative 08/10/17 20:42 Drugs of Abuse Note Disclamer 08/10/17 20:42 Plasma/Serum Alcohol < 0.01 % (0-0.07) 08/10/17 19:18
--- NOTE | 2017-08-18 09:50 | Progress Note ---
<CHANDAN GALEAS - Last Filed: 08/18/17 14:23> Assessment and Plan Assessment: 1) SIRS: Still tacycardia -blood cultures 08/14 growing gram positive rods and gram positive cocci in pairs. could be a contaminant (1 out of 4 bottles) -blood cultures 08/16 negative 3) Encephalopathy. Unclear etilology. ? due to underlyng psych disorder. MRI of brain negative 4) Unspecified Psychosis with catatonia 5) Hypokalemia; resolved Plan: -will observe off antibiotic -Psych following Thank you Dr. Wren for your consultation, will follow up with you. Chandan Galeas NP for Dr. Geovanna Steele MD Infectious Diseases Specialist [facility], [place], [facility] ([facility]) M [phone] O [phone] Subjective Date of service: 08/18/17 Interval history: Microbiology: Blood cultures: 08/14 growing gram positive rods and gram positive cocci in pairs 08/16 ngtd Repiratory cultures: Urine cultures Current Antimicrobials: None Previous Antimicrobials: Zosyn 08/16 Objective - Exam Narrative Exam: General appearance: lethargic, very difficult to arouse, non verbal, sitter at bedside Eyes: anicteric sclerae, moist conjunctivae; no lid-lag; PERRLA HENT: Atraumatic; oropharynx clear Neck: Trachea midline; supple, no thyromegaly or lymphadenopathy Lungs: CTAB CV: RRR, no murmurs Abdomen: Soft, non-tender; no masses or hepatosplenomegaly Extremities: warm, dry, and intact Skin: Normal temperature, turgor and texture; no rash, ulcers or subcutaneous nodules Psych: non verbal Neuro: non verbal Lines: No CVL / PICC - Constitutional Vitals: Vital Signs Temp Pulse Resp BP Pulse Ox 32.1 F L 71 18 118/68 99 08/18/17 05:27 08/18/17 05:27 08/18/17 05:27 08/18/17 05:27 08/18/17 05:27 Temperature -Last 24 Hours Temperature 32.1 F Temperature 99.1 F Temperature 98.2 F - Labs CBC & Chem 7: 08/18/17 04:23 08/18/17 04:23 Labs: Abnormal lab results 08/17/17 08/18/17 08/18/17 Range/Units 10:19 04:23 04:23 [place] % (Auto) 11.5 H (0.0-7.3) % [place] # 0.9 H (0.0-0.8) K/mm3 Potassium 3.3 L (3.6-5.0) mmol/L BUN 5 L (7-17) mg/dL Creatinine 0.6 L (0.7-1.2) mg/dL Glucose 134 H (65-100) mg/dL Calcium 8.1 L (8.4-10.2) mg/dL C-Reactive Protein 7.60 H (0.00-1.30) mg/dL <GEOVANNA STEELE - Last Filed: 08/18/17 16:02> Objective - Constitutional Vitals: Vital Signs Temp Pulse Resp BP Pulse Ox 97.6 F 85 20 119/79 99 08/18/17 13:13 08/18/17 13:31 08/18/17 13:13 08/18/17 13:31 08/18/17 13:31 Temperature -Last 24 Hours Temperature 97.6 F Temperature 97.9 F Temperature 32.1 F Temperature 99.1 F - Labs CBC & Chem 7: 08/18/17 04:23 08/18/17 04:23 Labs: Abnormal lab results 08/18/17 08/18/17 Range/Units 04:23 04:23 [place] % (Auto) 11.5 H (0.0-7.3) % [place] # 0.9 H (0.0-0.8) K/mm3 Potassium 3.3 L (3.6-5.0) mmol/L BUN 5 L (7-17) mg/dL Creatinine 0.6 L (0.7-1.2) mg/dL Glucose 134 H (65-100) mg/dL Calcium 8.1 L (8.4-10.2) mg/dL
[2017-08-18] MEDS: ASPIRIN PR SCH (10:50)
[2017-08-18] MEDS: LOVENOX SUB-Q SCH (10:50)
[2017-08-18] MEDS ORDERED: ATIVAN IV ONE ×2 (13:15)
--- NOTE | 2017-08-18 13:49 | Progress Note ---
Subjective - Reason for Consult Reason for consult: catatonia - Chief Complaint Chief complaint: Lorazepam challenge completed today. Lorazepam 1 mg IV was administered with continuous vitals monitoring over 5 mins with another lorazepam 1 mg IV administration at 6 minis from first dose with another set of continuous vitals monitoring over the next 5 mins. Pt minimally responsive to pain prior to lorazepam challenge with negativism, rigidity in the URE, - [place], non- verbal. After lorazepam challenge, pt woke up to painful stumili and maintained eye contact with family for a brief period before returning to catatonic state, indicating a successful lorazepam challenge supporting a diagnosis of catatonia. BP/HR remained stable throughout the process. At this time we continue to recommend that lorazepam 1 mg IM be given q8h while monitoring her BP/HR, PO2, RR before and after administration. Tomorrow we will reassess and likely increase the frequency of lorazepam. At this time we will discontinue zydis. Primary team needs to conduct swallow test, place pt on GI/DVT precautions, and determine how to supplement nutrition given that she hasn't eaten in 48 hours. Mental Status Exam - Vital signs Last Vital Signs Temp 97.6 F 08/18/17 13:13 Pulse 82 08/18/17 13:25 Resp 20 08/18/17 13:13 BP 119/69 08/18/17 13:25 Pulse Ox 97 08/18/17 13:25
[2017-08-19] MEDS: D5/0.45NS 1,000 ML IV SCH ×2 (01:22→21:48)
[2017-08-19] MEDS: ATIVAN IM SCH ×3 (05:24→21:49)
--- NOTE | 2017-08-19 09:29 | Progress Note ---
Subjective - Reason for Consult Consult date: 08/19/17 Reason for consult: Psychiatry Follow-up - Chief Complaint Chief complaint: "I feel better" 66 year-old female unknown past medical history presents to the hospital via EMS for alteration in mental status. Today the patient is calm and cooperative during the assessment. The patient is more alert today than previous assessments. She stated, "I feel better." She was able to squeeze my hand and raise both legs on command. Per the sitter, the patient ate some of her lunch and dinner yesterday. No gestures of SI/HI's. Mental Status Exam - Vital signs Last Vital Signs Temp 98.9 F 08/19/17 04:23 Pulse 86 08/19/17 04:23 Resp 18 08/19/17 04:23 BP 144/86 08/19/17 04:23 Pulse Ox 99 08/19/17 04:23 - Exam Narrative exam: MSE: Appearance: calm, cooperative Behavior: eyes open Speech: low rate and tone Mood: unable to assess Affect: flat Thought Process: unable to assess Thought Content: no gestures of SI/HI's and AVH's Motor Activity: lying in bed, no rigidity Cognition: alert Insight: limited Judgment: limited Assessment and Plan Impression: Unspecified Psychosis with catatonia. Today the patient is calm and cooperative during the assessment. MRI of the head - Negative for acute process. DDx: R/O Mood DO Recommendation/Plan: Continue 1013 with placement to inpatient psy services once medically clear. Continue Ativan to 1 mg IM Q8hrs for catatonia. Monitor the patient's PO intake. Neuro and ID is following patient. Monitor patient's V/ S's.
--- NOTE | 2017-08-19 09:47 | Progress Note ---
Assessment and Plan Assessment and plan: Acute encephalopathy/ Unspecified Psychosis with catatonia. Psych following. Continue Zyprexa and Ativan. Head CT 08/10 negative. Brain MRI without contrast 08/16 showed non specific chronic white matter changes; no acute intracranial process is identified; mild chronic sinus disease. Pt. responded to Ativan challenge Bacteremia. Blood cultures from 08/14 and 08/16 now showing no growth. ID following. Observe off antibiotics per ID recommendations Depression Mental health record shows a history of depression, unknown medication management Hypokalemia Replenished, Now resolved Mild protein malnutrition Nutrition consulted, Swallow eval when pt. more alert. Consider DHT placement for now DVT prophylaxis Lovenox History Interval history: No new issues overnight. Hospitalist Physical - Constitutional Vitals: Temp Pulse Resp BP Pulse Ox 98.9 F 86 18 144/86 99 08/19/17 04:23 08/19/17 04:23 08/19/17 04:23 08/19/17 04:23 08/19/17 04:23 General appearance: Present: no acute distress, well-nourished - EENT Eyes: Present: PERRL, EOM intact ENT: hearing intact, clear oral mucosa, dentition normal - Neck Neck: Present: supple, normal ROM - Respiratory Respiratory effort: normal Respiratory: bilateral: CTA - Cardiovascular Rhythm: regular Heart Sounds: Present: S1 & S2. Absent: gallop, rub - Extremities Extremities: no ischemia, No edema, Full ROM - Abdominal General gastrointestinal: soft, non-tender, non-distended, normal bowel sounds - Integumentary Integumentary: Present: clear, warm, dry - Neurologic Neurologic: CNII-XII intact, other (responds to painful stimuli) Results - Labs CBC & Chem 7: 08/18/17 04:23 08/18/17 04:23 Labs: Laboratory Last Values WBC 7.9 K/mm3 (4.5-11.0) 08/18/17 04:23 RBC 4.20 M/mm3 (3.65-5.03) 08/18/17 04:23 Hgb 12.0 gm/dl (10.1-14.3) 08/18/17 04:23 Hct 35.9 % (30.3-42.9) 08/18/17 04:23 MCV 85 fl (79-97) 08/18/17 04:23 MCH 29 pg (28-32) 08/18/17 04:23 MCHC 34 % (30-34) 08/18/17 04:23 RDW 13.8 % (13.2-15.2) 08/18/17 04:23 Plt Count 371 K/mm3 (140-440) 08/18/17 04:23 Lymph % (Auto) 19.5 % (13.4-35.0) 08/18/17 04:23 [place] % (Auto) 11.5 % (0.0-7.3) H 08/18/17 04:23 Eos % (Auto) 1.0 % (0.0-4.3) 08/18/17 04:23 Baso % (Auto) 1.2 % (0.0-1.8) 08/18/17 04:23 Lymph # 1.5 K/mm3 (1.2-5.4) 08/18/17 04:23 [place] # 0.9 K/mm3 (0.0-0.8) H 08/18/17 04:23 Eos # 0.1 K/mm3 (0.0-0.4) 08/18/17 04:23 Baso # 0.1 K/mm3 (0.0-0.1) 08/18/17 04:23 Add Manual Diff Complete 08/10/17 19:18 Total Counted 100 08/10/17 19:18 Seg Neutrophils % 66.8 % (40.0-70.0) 08/18/17 04:23 Seg Neuts % (Manual) 55.0 % (40.0-70.0) 08/10/17 19:18 Band Neutrophils % 1.0 % 08/10/17 19:18 Lymphocytes % (Manual) 35.0 % (13.4-35.0) 08/10/17 19:18 Reactive Lymphs % (Man) 0 % 08/10/17 19:18 Monocytes % (Manual) 9.0 % (0.0-7.3) H 08/10/17 19:18 Eosinophils % (Manual) 0 % (0.0-4.3) 08/10/17 19:18 Basophils % (Manual) 0 % (0.0-1.8) 08/10/17 19:18 Metamyelocytes % 0 % 08/10/17 19:18 Myelocytes % 0 % 08/10/17 19:18 Promyelocytes % 0 % 08/10/17 19:18 Blast Cells % 0 % 08/10/17 19:18 Nucleated RBC % Not Reportable 08/10/17 19:18 Seg Neutrophils # 5.3 K/mm3 (1.8-7.7) 08/18/17 04:23 Seg Neutrophils # Man 2.7 K/mm3 (1.8-7.7) 08/10/17 19:18 Band Neutrophils # 0.0 K/mm3 08/10/17 19:18 Lymphocytes # (Manual) 1.7 K/mm3 (1.2-5.4) 08/10/17 19:18 Abs React Lymphs (Man) 0.0 K/mm3 08/10/17 19:18 Monocytes # (Manual) 0.4 K/mm3 (0.0-0.8) 08/10/17 19:18 Eosinophils # (Manual) 0.0 K/mm3 (0.0-0.4) 08/10/17 19:18 Basophils # (Manual) 0.0 K/mm3 (0.0-0.1) 08/10/17 19:18 Metamyelocytes # 0.0 K/mm3 08/10/17 19:18 Myelocytes # 0.0 K/mm3 08/10/17 19:18 Promyelocytes # 0.0 K/mm3 08/10/17 19:18 Blast Cells # 0.0 K/mm3 08/10/17 19:18 WBC Morphology Not Reportable 08/10/17 19:18 Hypersegmented Neuts Not Reportable 08/10/17 19:18 Hyposegmented Neuts Not Reportable 08/10/17 19:18 Hypogranular Neuts Not Reportable 08/10/17 19:18 Smudge Cells Not Reportable 08/10/17 19:18 Toxic Granulation Not Reportable 08/10/17 19:18 Toxic Vacuolation Not Reportable 08/10/17 19:18 Dohle Bodies Not Reportable 08/10/17 19:18 Pelger-Huet Anomaly Not Reportable 08/10/17 19:18 Comfort Rods Not Reportable 08/10/17 19:18 Platelet Estimate Consistent w auto 08/10/17 19:18 Clumped Platelets Not Reportable 08/10/17 19:18 Plt Clumps, EDTA Not Reportable 08/10/17 19:18 Large Platelets Not Reportable 08/10/17 19:18 Giant Platelets Not Reportable 08/10/17 19:18 Platelet Satelliting Not Reportable 08/10/17 19:18 Plt Morphology Comment Not Reportable 08/10/17 19:18 RBC Morphology Not Reportable 08/10/17 19:18 Dimorphic RBCs Not Reportable 08/10/17 19:18 Polychromasia Not Reportable 08/10/17 19:18 Hypochromasia Not Reportable 08/10/17 19:18 Poikilocytosis Not Reportable 08/10/17 19:18 Anisocytosis Not Reportable 08/10/17 19:18 Microcytosis Not Reportable 08/10/17 19:18 Macrocytosis Not Reportable 08/10/17 19:18 Spherocytes Not Reportable 08/10/17 19:18 Pappenheimer Bodies Not Reportable 08/10/17 19:18 Sickle Cells Not Reportable 08/10/17 19:18 Target Cells Not Reportable 08/10/17 19:18 Tear Drop Cells Not Reportable 08/10/17 19:18 Ovalocytes Not Reportable 08/10/17 19:18 Helmet Cells Not Reportable 08/10/17 19:18 [place] Bodies Not Reportable 08/10/17 19:18 [place] Rings Not Reportable 08/10/17 19:18 [place] Cells Not Reportable 08/10/17 19:18 Bite Cells Not Reportable 08/10/17 19:18 Crenated Cell Not Reportable 08/10/17 19:18 Elliptocytes Not Reportable 08/10/17 19:18 Acanthocytes (Spur) Not Reportable 08/10/17 19:18 Rouleaux Not Reportable 08/10/17 19:18 Hemoglobin C Crystals Not Reportable 08/10/17 19:18 Schistocytes Not Reportable 08/10/17 19:18 Malaria parasites Not Reportable 08/10/17 19:18 Joaquín Bodies Not Reportable 08/10/17 19:18 Hem Pathologist Commnt No 08/10/17 19:18 Sodium 143 mmol/L (137-145) 08/18/17 04:23 Potassium 3.3 mmol/L (3.6-5.0) L 08/18/17 04:23 Chloride 104.3 mmol/L (98-107) 08/18/17 04:23 Carbon Dioxide 26 mmol/L (22-30) 08/18/17 04:23 Anion Gap 16 mmol/L 08/18/17 04:23 BUN 5 mg/dL (7-17) L 08/18/17 04:23 Creatinine 0.6 mg/dL (0.7-1.2) L 08/18/17 04:23 Estimated GFR > 60 ml/min 08/18/17 04:23 BUN/Creatinine Ratio 8 % 08/18/17 04:23 Glucose 134 mg/dL (65-100) H 08/18/17 04:23 POC Glucose 85 (70-105) 08/14/17 18:16 Calcium 8.1 mg/dL (8.4-10.2) L 08/18/17 04:23 Magnesium 2.20 mg/dL (1.7-2.3) 08/14/17 18:17 Total Bilirubin 0.50 mg/dL (0.1-1.2) 08/10/17 19:18 AST 20 units/L (5-40) 08/10/17 19:18 ALT 13 units/L (7-56) 08/10/17 19:18 Alkaline Phosphatase 67 units/L (35-129) 08/10/17 19:18 Ammonia 39.0 umol/L (25-60) 08/10/17 19:24 Total Creatine Kinase 119 units/L (30-135) 08/10/17 19:24 CK-MB (CK-2) 2.2 ng/mL (0.0-4.0) 08/10/17 19:24 CK-MB (CK-2) Rel Index 1.8 (0-4) 08/10/17 19:24 Troponin T < 0.010 ng/mL (0.00-0.029) 08/14/17 18:17 C-Reactive Protein 7.60 mg/dL (0.00-1.30) H 08/17/17 10:19 Total Protein 7.2 g/dL (6.3-8.2) 08/10/17 19:18 Albumin 3.8 g/dL (3.9-5) L 08/10/17:18 Albumin/Globulin Ratio 1.1 % 08/10/17 19:18 Triglycerides 90 mg/dL (2-149) 08/14/17 18:17 Cholesterol 170 mg/dL (50-199) 08/14/17 18:17 LDL Cholesterol Direct 116 mg/dL (50-130) 08/14/17 18:17 HDL Cholesterol 36 mg/dL (40-59) L 08/14/17 18:17 Cholesterol/HDL Ratio 4.72 % 08/14/17 18:17 TSH 2.690 mlU/mL (0.270-4.200) 08/10/17 19: Free T4 2.05 ng/dL (0.76-1.46) H 08/10/17 19:24 Urine Color Yellow (Yellow) 08/15/17 09:25 Urine Turbidity Clear (Clear) 08/15/17 09:25 Urine pH 7.0 (5.0-7.0) 08/15/17 09:25 Ur Specific [place] 1.008 (1.003-1.030) 08/15/17 09:25 Urine Protein <15 mg/dl mg/dL (Negative) 08/15/17 09:25 Urine Glucose (UA) Neg mg/dL (Negative) 08/15/17 09:25 Urine Ketones Tr mg/dL (Negative) 08/15/17 09:25 Urine Blood Neg (Negative) 08/15/17 09:25 Urine Nitrite Neg (Negative) 08/15/17 09:25 Urine Bilirubin Neg (Negative) 08/15/17 09:25 Urine Urobilinogen < 2.0 mg/dL (<2.0) 08/15/17 09:25 Ur Leukocyte Esterase Tr (Negative) 08/15/17 09:25 Urine WBC (Auto) 1.0 /HPF (0.0-6.0) 08/15/17 09:25 Urine RBC (Auto) 5.0 /HPF (0.0-6.0) 08/15/17 09:25 Urine Bacteria (Auto) 1+ /HPF (Negative) 08/15/17 09:25 Urine Mucus Few /HPF 08/15/17 09:25 Salicylates < 0.3 mg/dL (2.8-20.0) L 02/13/18 19:24 Urine Opiates Screen Presumptive negative 08/10/17 20:42 Urine Methadone Screen Presumptive negative 08/10/17 20:42 Acetaminophen < 15.0 ug/mL (10.0-30.0) 08/10/17 19:24 Ur Barbiturates Screen Presumptive negative 08/10/17 20:42 Ur Phencyclidine Scrn Presumptive negative 08/10/17 20:42 Ur Amphetamines Screen Presumptive negative 08/10/17 20:42 U Benzodiazepines Scrn Presumptive negative 08/10/17 20:42 Urine Cocaine Screen Presumptive negative 08/10/17 20:42 U Marijuana (THC) Screen Presumptive negative 08/10/17 20:42 Drugs of Abuse Note Disclamer 08/10/17 20:42 Plasma/Serum Alcohol < 0.01 % (0-0.07) 08/10/17 19:18
--- NOTE | 2017-08-19 09:53 | Progress Note ---
Addendum entered and electronically signed by GEOVANNA STEELE MD 08/19/17 13:22: Pt seen and examined independently. Mental status much improved. BCx with Caog Neg Staph and Diphtheroids. These are contaminants. Repeat blood cx NGTD Stable off abx. d/w pt's sister bedside. ID service will sign off. Please call with questions/concerns. Original Note: <CHANDAN GALEAS - Last Filed: 08/19/17 12:15> Assessment and Plan Assessment: 1) SIRS: Better -blood cultures 08/14 grew coag negative Staphylococcus diphtheroids -blood cultures 08/16 negative 3) Encephalopathy. Unclear etilology. ? due to underlyng psych disorder. MRI of brain negative 4) Unspecified Psychosis with catatonia 5) Hypokalemia; resolved Plan: -f/u blood cx 08/14, spoke with Keysha and she will work on it today -will observe off antibiotic -Psych following We will sign off Thank you Dr. Wren for your consultation, will follow up with you. Chandan Galeas NP for Dr. Geovanna Steele MD Infectious Diseases Specialist [facility] ([facility]) M [phone] O [phone] Subjective Date of service: 08/19/17 Interval history: More awake today, Microbiology: Blood cultures: 08/14 grew coag negative Staphylococcus diphtheroids 08/16 ngtd Repiratory cultures: Urine cultures Current Antimicrobials: None Previous Antimicrobials: Zosyn 08/16 Objective - Exam Narrative Exam: General appearance: still lethargic, more alert, non verbal, sitter at bedside Eyes: anicteric sclerae, moist conjunctivae; no lid-lag; PERRLA HENT: Atraumatic; oropharynx clear Neck: Trachea midline; supple, no thyromegaly or lymphadenopathy Lungs: CTAB CV: RRR, no murmurs Abdomen: Soft, non-tender; no masses or hepatosplenomegaly Extremities: warm, dry, and intact Skin: Normal temperature, turgor and texture; no rash, ulcers or subcutaneous nodules Psych: non verbal Neuro: non verbal Lines: No CVL / PICC - Constitutional Vitals: Vital Signs Temp Pulse Resp BP Pulse Ox 98.9 F 86 18 144/86 99 08/19/17 04:23 08/19/17 04:23 08/19/17 04:23 08/19/17 04:23 08/19/17 04:23 Temperature -Last 24 Hours Temperature 98.9 F Temperature 99.1 F Temperature 98.5 F Temperature 97.6 F Temperature 97.9 F - Labs CBC & Chem 7: 08/18/17 04:23 08/18/17 04:23 <GEOVANNA STEELE - Last Filed: 08/19/17 13:22> Objective - Constitutional Vitals: Vital Signs Temp Pulse Resp BP Pulse Ox 98.6 F 90 18 132/70 98 08/19/17 10:59 08/19/17 11:00 08/19/17 10:59 08/19/17 10:59 08/19/17 11:00 Temperature -Last 24 Hours Temperature 98.6 F Temperature 98.9 F Temperature 99.1 F Temperature 98.5 F - Labs CBC & Chem 7: 08/18/17 04:23 08/18/17 04:23
[2017-08-19] MEDS: PROTONIX PO SCH (10:55)
[2017-08-19] MEDS: ASPIRIN PR SCH (10:55)
[2017-08-19] MEDS: LOVENOX SUB-Q SCH (10:55)
[2017-08-20] MEDS: ATIVAN IM SCH ×4 (05:46→21:19)
[2017-08-20] MEDS: LOVENOX SUB-Q SCH (09:31)
[2017-08-20] MEDS: PROTONIX PO SCH ×2 (09:31→10:01)
[2017-08-20] MEDS: ASPIRIN PR SCH ×2 (09:32→10:01)
--- NOTE | 2017-08-20 10:02 | Progress Note ---
Assessment and Plan Assessment and plan: Acute encephalopathy/ Unspecified Psychosis with catatonia. Psych following. Continue Zyprexa and Ativan. Head CT 08/10 negative. Brain MRI without contrast 08/16 showed non specific chronic white matter changes; no acute intracranial process is identified; mild chronic sinus disease. Pt. responded to Ativan challenge Bacteremia. Blood cultures from 08/14 and 08/16 now showing no growth. ID following. Observe off antibiotics per ID recommendations Depression Mental health record shows a history of depression, unknown medication management Hypokalemia Replenished, Now resolved Mild protein malnutrition Nutrition consulted, Swallow eval when pt. more alert. Consider DHT placement for now DVT prophylaxis Lovenox History Interval history: No new issues overnight. Pt. much improved. Sitting up in bed Hospitalist Physical - Constitutional Vitals: Temp Pulse Resp BP Pulse Ox 98.4 F 86 1 L 166/95 100 08/20/17 07:56 08/20/17 08:53 08/20/17 07:56 08/20/17 07:56 08/20/17 08:53 General appearance: Present: no acute distress, well-nourished - EENT Eyes: Present: PERRL, EOM intact ENT: hearing intact, clear oral mucosa, dentition normal - Neck Neck: Present: supple, normal ROM - Respiratory Respiratory effort: normal Respiratory: bilateral: CTA - Cardiovascular Rhythm: regular Heart Sounds: Present: S1 & S2. Absent: gallop, rub - Extremities Extremities: no ischemia, No edema, Full ROM - Abdominal General gastrointestinal: soft, non-tender, non-distended, normal bowel sounds - Integumentary Integumentary: Present: clear, warm, dry - Neurologic Neurologic: CNII-XII intact, moves all extremities Results - Labs CBC & Chem 7: 08/18/17 04:23 08/18/17 04:23 Labs: Laboratory Last Values WBC 7.9 K/mm3 (4.5-11.0) 08/18/17 04:23 RBC 4.20 M/mm3 (3.65-5.03) 08/18/17 04:23 Hgb 12.0 gm/dl (10.1-14.3) 08/18/17 04:23 Hct 35.9 % (30.3-42.9) 08/18/17 04:23 MCV 85 fl (79-97) 08/18/17 04:23 MCH 29 pg (28-32) 08/18/17 04:23 MCHC 34 % (30-34) 08/18/17 04:23 RDW 13.8 % (13.2-15.2) 08/18/17 04:23 Plt Count 371 K/mm3 (140-440) 08/18/17 04:23 Lymph % (Auto) 19.5 % (13.4-35.0) 08/18/17 04:23 [place] % (Auto) 11.5 % (0.0-7.3) H 08/18/17 04:23 Eos % (Auto) 1.0 % (0.0-4.3) 08/18/17 04:23 Baso % (Auto) 1.2 % (0.0-1.8) 08/18/17 04:23 Lymph # 1.5 K/mm3 (1.2-5.4) 08/18/17 04:23 [place] # 0.9 K/mm3 (0.0-0.8) H 08/18/17 04:23 Eos # 0.1 K/mm3 (0.0-0.4) 08/18/17 04:23 Baso # 0.1 K/mm3 (0.0-0.1) 08/18/17 04:23 Add Manual Diff Complete 08/10/17 19:18 Total Counted 100 08/10/17 19:18 Seg Neutrophils % 66.8 % (40.0-70.0) 08/18/17 04:23 Seg Neuts % (Manual) 55.0 % (40.0-70.0) 08/10/17 19:18 Band Neutrophils % 1.0 % 08/10/17 19:18 Lymphocytes % (Manual) 35.0 % (13.4-35.0) 08/10/17 19:18 Reactive Lymphs % (Man) 0 % 08/10/17 19:18 Monocytes % (Manual) 9.0 % (0.0-7.3) H 08/10/17 19:18 Eosinophils % (Manual) 0 % (0.0-4.3) 08/10/17 19:18 Basophils % (Manual) 0 % (0.0-1.8) 02/13/18 19:18 Metamyelocytes % 0 % 08/10/17 19:18 Myelocytes % 0 % 08/10/17 19:18 Promyelocytes % 0 % 08/10/17 19:18 Blast Cells % 0 % 08/10/17 19:18 Nucleated RBC % Not Reportable 08/10/17 19:18 Seg Neutrophils # 5.3 K/mm3 (1.8-7.7) 08/18/17 04:23 Seg Neutrophils # Man 2.7 K/mm3 (1.8-7.7) 08/10/17 19:18 Band Neutrophils # 0.0 K/mm3 08/10/17 19:18 Lymphocytes # (Manual) 1.7 K/mm3 (1.2-5.4) 08/10/17 19:18 Abs React Lymphs (Man) 0.0 K/mm3 08/10/17 19:18 Monocytes # (Manual) 0.4 K/mm3 (0.0-0.8) 08/10/17 19:18 Eosinophils # (Manual) 0.0 K/mm3 (0.0-0.4) 08/10/17 19:18 Basophils # (Manual) 0.0 K/mm3 (0.0-0.1) 08/10/17 19:18 Metamyelocytes # 0.0 K/mm3 08/10/17 19:18 Myelocytes # 0.0 K/mm3 08/10/17 19:18 Promyelocytes # 0.0 K/mm3 08/10/17 19:18 Blast Cells # 0.0 K/mm3 08/10/17 19:18 WBC Morphology Not Reportable 08/10/17 19:18 Hypersegmented Neuts Not Reportable 08/10/17 19:18 Hyposegmented Neuts Not Reportable 08/10/17 19:18 Hypogranular Neuts Not Reportable 08/10/17 19:18 Smudge Cells Not Reportable 08/10/17 19:18 Toxic Granulation Not Reportable 08/10/17 19:18 Toxic Vacuolation Not Reportable 08/10/17 19:18 Dohle Bodies Not Reportable 08/10/17 19:18 Pelger-Huet Anomaly Not Reportable 08/10/17 19:18 Comfort Rods Not Reportable 08/10/17 19:18 Platelet Estimate Consistent w auto 08/10/17 19:18 Clumped Platelets Not Reportable 08/10/17 19:18 Plt Clumps, EDTA Not Reportable 08/10/17 19:18 Large Platelets Not Reportable 08/10/17 19:18 Giant Platelets Not Reportable 08/10/17 19:18 Platelet Satelliting Not Reportable 08/10/17 19:18 Plt Morphology Comment Not Reportable 08/10/17 19:18 RBC Morphology Not Reportable 08/10/17 19:18 Dimorphic RBCs Not Reportable 08/10/17 19:18 Polychromasia Not Reportable 08/10/17 19:18 Hypochromasia Not Reportable 08/10/17 19:18 Poikilocytosis Not Reportable 08/10/17 19:18 Anisocytosis Not Reportable 08/10/17 19:18 Microcytosis Not Reportable 08/10/17 19:18 Macrocytosis Not Reportable 08/10/17 19:18 Spherocytes Not Reportable 08/10/17 19:18 Pappenheimer Bodies Not Reportable 08/10/17 19:18 Sickle Cells Not Reportable 08/10/17 19:18 Target Cells Not Reportable 08/10/17 19:18 Tear Drop Cells Not Reportable 08/10/17 19:18 Ovalocytes Not Reportable 08/10/17 19:18 Helmet Cells Not Reportable 08/10/17 19:18 [place] Bodies Not Reportable 08/10/17 19:18 [place] Rings Not Reportable 08/10/17 19:18 Nallely Cells Not Reportable 08/10/17 19:18 Bite Cells Not Reportable 08/10/17 19:18 Crenated Cell Not Reportable 08/10/17 19:18 Elliptocytes Not Reportable 08/10/17 19:18 Acanthocytes (Spur) Not Reportable 08/10/17 19:18 Rouleaux Not Reportable 08/10/17 19:18 Hemoglobin C Crystals Not Reportable 08/10/17 19:18 Schistocytes Not Reportable 08/10/17 19:18 Malaria parasites Not Reportable 08/10/17 19:18 Joaquín Bodies Not Reportable 08/10/17 19:18 Hem Pathologist Commnt No 08/10/17 19:18 Sodium 143 mmol/L (137-145) 08/18/17 04:23 Potassium 3.3 mmol/L (3.6-5.0) L 08/18/17 04:23 Chloride 104.3 mmol/L (98-107) 08/18/17 04:23 Carbon Dioxide 26 mmol/L (22-30) 08/18/17 04:23 Anion Gap 16 mmol/L 08/18/17 04:23 BUN 5 mg/dL (7-17) L 08/18/17 04:23 Creatinine 0.6 mg/dL (0.7-1.2) L 08/18/17 04:23 Estimated GFR > 60 ml/min 08/18/17 04:23 BUN/Creatinine Ratio 8 % 08/18/17 04:23 Glucose 134 mg/dL (65-100) H 08/18/17 04:23 POC Glucose 85 (70-105) 08/14/17 18:16 Calcium 8.1 mg/dL (8.4-10.2) L 08/18/17 04:23 Magnesium 2.20 mg/dL (1.7-2.3) 08/14/17 18:17 Total Bilirubin 0.50 mg/dL (0.1-1.2) 08/10/17 19:18 AST 20 units/L (5-40) 08/10/17 19:18 ALT 13 units/L (7-56) 08/10/17 19:18 Alkaline Phosphatase 67 units/L (35-129) 08/10/17 19:18 Ammonia 39.0 umol/L (25-60) 08/10/17 19:24 Total Creatine Kinase 119 units/L (30-135) 08/10/17 19:24 CK-MB (CK-2) 2.2 ng/mL (0.0-4.0) 08/10/17 19:24 CK-MB (CK-2) Rel Index 1.8 (0-4) 08/10/17 19:24 Troponin T < 0.010 ng/mL (0.00-0.029) 08/14/17 18:17 C-Reactive Protein 7.60 mg/dL (0.00-1.30) H 08/17/17 10:19 Total Protein 7.2 g/dL (6.3-8.2) 08/10/17 19:18 Albumin 3.8 g/dL (3.9-5) L 08/10/17: Albumin/Globulin Ratio 1.1 % 08/10/17: Triglycerides 90 mg/dL (2-149) 08/14/17 18: Cholesterol 170 mg/dL (50-199) 08/14/17 18: LDL Cholesterol Direct 116 mg/dL (50-130) 08/14/17 18: HDL Cholesterol 36 mg/dL (40-59) L 08/14/17 18: Cholesterol/HDL Ratio 4.72 % 08/14/17 18: TSH 2.690 mlU/mL (0.270-4.200) 08/10/17: Free T4 2.05 ng/dL (0.76-1.46) H 08/10/17: Urine Color Yellow (Yellow) 08/15/17 09:25 Urine Turbidity Clear (Clear) 08/15/17: Urine pH 7.0 (5.0-7.0) 08/15/17 09:25 Ur Specific [place] 1.008 (1.003-1.030) 08/15/17 09:25 Urine Protein <15 mg/dl mg/dL (Negative) 08/15/17 09:25 Urine Glucose (UA) Neg mg/dL (Negative) 08/15/17 09:25 Urine Ketones Tr mg/dL (Negative) 08/15/17 09:25 Urine Blood Neg (Negative) 08/15/17 09:25 Urine Nitrite Neg (Negative) 08/15/17 09:25 Urine Bilirubin Neg (Negative) 08/15/17 09:25 Urine Urobilinogen < 2.0 mg/dL (<2.0) 08/15/17 09:25 Ur Leukocyte Esterase Tr (Negative) 08/15/17 09:25 Urine WBC (Auto) 1.0 /HPF (0.0-6.0) 08/15/17 09:25 Urine RBC (Auto) 5.0 /HPF (0.0-6.0) 08/15/17 09:25 Urine Bacteria (Auto) 1+ /HPF (Negative) 08/15/17 09:25 Urine Mucus Few /HPF 08/15/17 09:25 Salicylates < 0.3 mg/dL (2.8-20.0) L 08/10/17 19:24 Urine Opiates Screen Presumptive negative 08/10/17 20:42 Urine Methadone Screen Presumptive negative 08/10/17 20:42 Acetaminophen < 15.0 ug/mL (10.0-30.0) 08/10/17 19:24 Ur Barbiturates Screen Presumptive negative 08/10/17 20:42 Ur Phencyclidine Scrn Presumptive negative 08/10/17 20:42 Ur Amphetamines Screen Presumptive negative 08/10/17 20:42 U Benzodiazepines Scrn Presumptive negative 08/10/17 20:42 Urine Cocaine Screen Presumptive negative 08/10/17 20:42 U Marijuana (THC) Screen Presumptive negative 08/10/17 20:42 Drugs of Abuse Note Disclamer 08/10/17 20:42 Plasma/Serum Alcohol < 0.01 % (0-0.07) 08/10/17 19:18
[2017-08-20] MEDS: D5/0.45NS 1,000 ML IV SCH ×2 (10:12→21:19)
--- NOTE | 2017-08-20 12:08 | Progress Note ---
Subjective - Reason for Consult Consult date: 08/20/17 Reason for consult: Psychiatry Follow-up - Chief Complaint Chief complaint: "Ailynlo" 66 year-old female unknown past medical history presents to the hospital via EMS for alteration in mental status. Today the patient is calm and cooperative during the assessment. Upon my arrival to the patient's room, she was sitting on the side of the bed. She answers some of my questions when asked. Per the sitter, the patient drink her boost, but didn't eat her breakfast. She denies SI /HI's and AVH's. Mental Status Exam - Vital signs Last Vital Signs Temp 98.4 F 08/20/17 07:56 Pulse 86 08/20/17 10:00 Resp 1 L 08/20/17 07:56 BP 166/95 08/20/17 07:56 Pulse Ox 100 08/20/17 10:00 - Exam Narrative exam: MSE: Appearance: calm, cooperative Behavior: blank stare intermittently Speech: low rate and tone Mood: "okay" Affect: flat Thought Process: circumstantial Thought Content: denies SI/HI's and AVH's Motor Activity: sitting up on the side of the bed Cognition: alert Insight: limited Judgment: limited Assessment and Plan Impression: Unspecified Psychosis with catatonia. Today the patient is calm and cooperative during the assessment. MRI of the head - Negative for acute process. DDx: R/O Mood DO Recommendation/Plan: Continue 1013 with placement to inpatient psy services once medically clear. Continue Ativan to 1 mg IM Q8hrs for catatonia. Monitor the patient's PO intake. Neuro and ID is following patient. Monitor patient's V/ S's.
[2017-08-21] MEDS: TYLENOL PO PRN ×2 (04:29→09:26)
[2017-08-21 04:57] LABS: Basophils % (Auto) 0.5 % (0.0-1.8); Eosinophils # (Auto) 0.1 K/mm3 (0.0-0.4); Eosinophils % (Auto) 1.3 % (0.0-4.3); Hematocrit 37.4 % (30.3-42.9); Hemoglobin 12.4 gm/dl (10.1-14.3); Lymphocytes # (Auto) 0.8 K/mm3 (1.2-5.4); Lymphocytes % (Auto) 11.9 % (13.4-35.0); Mean Corpuscular HGB Conc 33 % (30-34); Mean Corpuscular Hemoglobin 28 pg (28-32); Mean Corpuscular Volume 85 fl (79-97); Monocytes # (Auto) 0.6 K/mm3 (0.0-0.8); Monocytes % (Auto) 8.6 % (0.0-7.3); Platelet Count 437 K/mm3 (140-440); Red Blood Count 4.39 M/mm3 (3.65-5.03); Red Cell Distribution Width 13.7 % (13.2-15.2)
[2017-08-21] MEDS: ATIVAN IM SCH ×4 (05:00→22:00)
[2017-08-21 05:09] LABS: BUN/Creatinine Ratio 12; Blood Urea Nitrogen 7 mg/dL (7-17); Calcium 8.9 mg/dL (8.4-10.2); Hemolysis Index 30
--- NOTE | 2017-08-21 09:14 | Progress Note ---
Assessment and Plan Assessment and plan: Acute encephalopathy/ Unspecified Psychosis with catatonia. Psych following. Continue Zyprexa and Ativan. Head CT 08/10 negative. Brain MRI without contrast 08/16 showed non specific chronic white matter changes; no acute intracranial process is identified; mild chronic sinus disease. Pt. responded to Ativan challenge Bacteremia. Blood cultures from 08/14 and 08/16 now showing no growth. ID following. Observe off antibiotics per ID recommendations Depression Mental health record shows a history of depression, unknown medication management Hypokalemia Replenished, Now resolved Mild protein malnutrition Nutritional support DVT prophylaxis Lovenox Disposition. D/C when psych bed available History Interval history: No new issues overnight. Pt. much improved. Sitting up in bed Hospitalist Physical - Constitutional Vitals: Temp Pulse Resp BP Pulse Ox 98.8 F 82 18 112/62 96 08/21/17 07:32 08/21/17 07:32 08/21/17 07:32 08/21/17 07:32 08/21/17 07:32 General appearance: Present: no acute distress, well-nourished - EENT Eyes: Present: PERRL, EOM intact ENT: hearing intact, clear oral mucosa, dentition normal - Neck Neck: Present: supple, normal ROM - Respiratory Respiratory effort: normal Respiratory: bilateral: CTA - Cardiovascular Rhythm: regular Heart Sounds: Present: S1 & S2. Absent: gallop, rub - Extremities Extremities: no ischemia, No edema, Full ROM - Abdominal General gastrointestinal: soft, non-tender, non-distended, normal bowel sounds - Integumentary Integumentary: Present: clear, warm, dry - Neurologic Neurologic: CNII-XII intact, moves all extremities Results - Labs CBC & Chem 7: 08/21/17 04:17 08/21/17 04:17 Labs: Laboratory Last Values WBC 6.9 K/mm3 (4.5-11.0) 08/21/17 04:17 RBC 4.39 M/mm3 (3.65-5.03) 08/21/17 04:17 Hgb 12.4 gm/dl (10.1-14.3) 08/21/17 04:17 Hct 37.4 % (30.3-42.9) 08/21/17 04:17 MCV 85 fl (79-97) 08/21/17 04:17 MCH 28 pg (28-32) 08/21/17 04:17 MCHC 33 % (30-34) 08/21/17 04:17 RDW 13.7 % (13.2-15.2) 08/21/17 04:17 Plt Count 437 K/mm3 (140-440) 08/21/17 04:17 Lymph % (Auto) 11.9 % (13.4-35.0) L 08/21/17 04:17 [place] % (Auto) 8.6 % (0.0-7.3) H 08/21/17 04:17 Eos % (Auto) 1.3 % (0.0-4.3) 08/21/17 04:17 Baso % (Auto) 0.5 % (0.0-1.8) 08/21/17 04:17 Lymph # 0.8 K/mm3 (1.2-5.4) L 08/21/17 04:17 [place] # 0.6 K/mm3 (0.0-0.8) 08/21/17 04:17 Eos # 0.1 K/mm3 (0.0-0.4) 08/21/17 04:17 Baso # 0.0 K/mm3 (0.0-0.1) 08/21/17 04:17 Add Manual Diff Complete 08/10/17 19:18 Total Counted 100 08/10/17 19:18 Seg Neutrophils % 77.7 % (40.0-70.0) H 08/21/17 04:17 Seg Neuts % (Manual) 55.0 % (40.0-70.0) 08/10/17 19:18 Band Neutrophils % 1.0 % 08/10/17 19:18 Lymphocytes % (Manual) 35.0 % (13.4-35.0) 08/10/17 19:18 Reactive Lymphs % (Man) 0 % 08/10/17 19:18 Monocytes % (Manual) 9.0 % (0.0-7.3) H 08/10/17 19:18 Eosinophils % (Manual) 0 % (0.0-4.3) 08/10/17 19:18 Basophils % (Manual) 0 % (0.0-1.8) 08/10/17 19:18 Metamyelocytes % 0 % 08/10/17 19:18 Myelocytes % 0 % 08/10/17 19:18 Promyelocytes % 0 % 08/10/17 19:18 Blast Cells % 0 % 08/10/17 19:18 Nucleated RBC % Not Reportable 08/10/17 19:18 Seg Neutrophils # 5.4 K/mm3 (1.8-7.7) 08/21/17 04:17 Seg Neutrophils # Man 2.7 K/mm3 (1.8-7.7) 08/10/17 19:18 Band Neutrophils # 0.0 K/mm3 08/10/17 19:18 Lymphocytes # (Manual) 1.7 K/mm3 (1.2-5.4) 08/10/17 19:18 Abs React Lymphs (Man) 0.0 K/mm3 08/10/17 19:18 Monocytes # (Manual) 0.4 K/mm3 (0.0-0.8) 08/10/17 19:18 Eosinophils # (Manual) 0.0 K/mm3 (0.0-0.4) 08/10/17 19:18 Basophils # (Manual) 0.0 K/mm3 (0.0-0.1) 08/10/17 19:18 Metamyelocytes # 0.0 K/mm3 08/10/17 19:18 Myelocytes # 0.0 K/mm3 08/10/17 19:18 Promyelocytes # 0.0 K/mm3 08/10/17 19:18 Blast Cells # 0.0 K/mm3 08/10/17 19:18 WBC Morphology Not Reportable 08/10/17 19:18 Hypersegmented Neuts Not Reportable 08/10/17 19:18 Hyposegmented Neuts Not Reportable 08/10/17 19:18 Hypogranular Neuts Not Reportable 08/10/17 19:18 Smudge Cells Not Reportable 08/10/17 19:18 Toxic Granulation Not Reportable 08/10/17 19:18 Toxic Vacuolation Not Reportable 08/10/17 19:18 Dohle Bodies Not Reportable 08/10/17 19:18 Pelger-Huet Anomaly Not Reportable 08/10/17 19:18 Comfrot Rods Not Reportable 08/10/17 19:18 Platelet Estimate Consistent w auto 08/10/17 19:18 Clumped Platelets Not Reportable 08/10/17 19:18 Plt Clumps, EDTA Not Reportable 08/10/17 19:18 Large Platelets Not Reportable 08/10/17 19:18 Giant Platelets Not Reportable 08/10/17 19:18 Platelet Satelliting Not Reportable 08/10/17 19:18 Plt Morphology Comment Not Reportable 08/10/17 19:18 RBC Morphology Not Reportable 08/10/17 19:18 Dimorphic RBCs Not Reportable 08/10/17 19:18 Polychromasia Not Reportable 08/10/17 19:18 Hypochromasia Not Reportable 08/10/17 19:18 Poikilocytosis Not Reportable 08/10/17 19:18 Anisocytosis Not Reportable 08/10/17 19:18 Microcytosis Not Reportable 08/10/17 19:18 Macrocytosis Not Reportable 08/10/17 19:18 Spherocytes Not Reportable 08/10/17 19:18 Pappenheimer Bodies Not Reportable 08/10/17 19:18 Sickle Cells Not Reportable 08/10/17 19:18 Target Cells Not Reportable 08/10/17 19:18 Tear Drop Cells Not Reportable 08/10/17 19:18 Ovalocytes Not Reportable 08/10/17 19:18 Helmet Cells Not Reportable 08/10/17 19:18 [place] Bodies Not Reportable 08/10/17 19:18 [place] Rings Not Reportable 08/10/17 19:18 [place] Cells Not Reportable 08/10/17 19:18 Bite Cells Not Reportable 08/10/17 19:18 Crenated Cell Not Reportable 08/10/17 19:18 Elliptocytes Not Reportable 08/10/17 19:18 Acanthocytes (Spur) Not Reportable 08/10/17 19:18 Rouleaux Not Reportable 08/10/17 19:18 Hemoglobin C Crystals Not Reportable 08/10/17 19:18 Schistocytes Not Reportable 08/10/17 19:18 Malaria parasites Not Reportable 08/10/17 19:18 [place] Bodies Not Reportable 08/10/17 19:18 Hem Pathologist Commnt No 08/10/17 19:18 Sodium 140 mmol/L (137-145) 08/21/17 04:17 Potassium 4.3 mmol/L (3.6-5.0) D 08/21/17 04:17 Chloride 99.9 mmol/L (98-107) 08/21/17 04:17 Carbon Dioxide 26 mmol/L (22-30) 08/21/17 04:17 Anion Gap 18 mmol/L 08/21/17 04:17 BUN 7 mg/dL (7-17) 08/21/17 04:17 Creatinine 0.6 mg/dL (0.7-1.2) L 08/21/17 04:17 Estimated GFR > 60 ml/min 08/21/17 04:17 BUN/Creatinine Ratio 12 % 08/21/17 04:17 Glucose 118 mg/dL (65-100) H 08/21/17 04:17 POC Glucose 85 (70-105) 08/14/17 18:16 Calcium 8.9 mg/dL (8.4-10.2) 08/21/17 04:17 Magnesium 2.20 mg/dL (1.7-2.3) 08/14/17 18:17 Total Bilirubin 0.50 mg/dL (0.1-1.2) 08/10/17 19:18 AST 20 units/L (5-40) 08/10/17 19:18 ALT 13 units/L (7-56) 08/10/17 19:18 Alkaline Phosphatase 67 units/L (35-129) 08/10/17 19:18 Ammonia 39.0 umol/L (25-60) 08/10/17 19:24 Total Creatine Kinase 119 units/L (30-135) 08/10/17 19:24 CK-MB (CK-2) 2.2 ng/mL (0.0-4.0) 08/10/17 19:24 CK-MB (CK-2) Rel Index 1.8 (0-4) 08/10/17 19:24 Troponin T < 0.010 ng/mL (0.00-0.029) 08/14/17 18:17 C-Reactive Protein 7.60 mg/dL (0.00-1.30) H 08/17/17 10:19 Total Protein 7.2 g/dL (6.3-8.2) 08/10/17 19:18 Albumin 3.8 g/dL (3.9-5) L 08/10/17:18 Albumin/Globulin Ratio 1.1 % 08/10/17 19:18 Triglycerides 90 mg/dL (2-149) 08/14/17 18:17 Cholesterol 170 mg/dL (50-199) 08/14/17 18:17 LDL Cholesterol Direct 116 mg/dL (50-130) 08/14/17 18:17 HDL Cholesterol 36 mg/dL (40-59) L 08/14/17 18:17 Cholesterol/HDL Ratio 4.72 % 08/14/17 18:17 TSH 2.690 mlU/mL (0.270-4.200) 08/10/17 19:24 Free T4 2.05 ng/dL (0.76-1.46) H 08/10/17 19:24 Urine Color Yellow (Yellow) 08/15/17 09:25 Urine Turbidity Clear (Clear) 08/15/17 09:25 Urine pH 7.0 (5.0-7.0) 08/15/17 09:25 Ur Specific [place] 1.008 (1.003-1.030) 08/15/17 09:25 Urine Protein <15 mg/dl mg/dL (Negative) 08/15/17 09:25 Urine Glucose (UA) Neg mg/dL (Negative) 08/15/17 09:25 Urine Ketones Tr mg/dL (Negative) 08/15/17 09:25 Urine Blood Neg (Negative) 08/15/17 09:25 Urine Nitrite Neg (Negative) 08/15/17 09:25 Urine Bilirubin Neg (Negative) 08/15/17 09:25 Urine Urobilinogen < 2.0 mg/dL (<2.0) 08/15/17 09:25 Ur Leukocyte Esterase Tr (Negative) 08/15/17 09:25 Urine WBC (Auto) 1.0 /HPF (0.0-6.0) 08/15/17 09:25 Urine RBC (Auto) 5.0 /HPF (0.0-6.0) 08/15/17 09:25 Urine Bacteria (Auto) 1+ /HPF (Negative) 08/15/17 09:25 Urine Mucus Few /HPF 08/15/17 09:25 Salicylates < 0.3 mg/dL (2.8-20.0) L 08/10/17 19:24 Urine Opiates Screen Presumptive negative 08/10/17 20:42 Urine Methadone Screen Presumptive negative 08/10/17 20:42 Acetaminophen < 15.0 ug/mL (10.0-30.0) 08/10/17 19:24 Ur Barbiturates Screen Presumptive negative 08/10/17 20:42 Ur Phencyclidine Scrn Presumptive negative 08/10/17 20:42 Ur Amphetamines Screen Presumptive negative 08/10/17 20:42 U Benzodiazepines Scrn Presumptive negative 08/10/17 20:42 Urine Cocaine Screen Presumptive negative 08/10/17 20:42 U Marijuana (THC) Screen Presumptive negative 08/10/17 20:42 Drugs of Abuse Note Disclamer 08/10/17 20:42 Plasma/Serum Alcohol < 0.01 % (0-0.07) 08/10/17 19:18
[2017-08-21] MEDS: LOVENOX SUB-Q SCH (09:26)
[2017-08-21] MEDS: PROTONIX PO SCH (09:26)
[2017-08-21] MEDS: ASPIRIN PO SCH (09:26)
[2017-08-21] MEDS: D5/0.45NS 1,000 ML IV SCH (18:33)
[2017-08-22] MEDS: D5/0.45NS 1,000 ML IV SCH ×2 (04:16→13:58)
[2017-08-22] MEDS: ATIVAN IM SCH ×4 (05:27→22:30)
--- NOTE | 2017-08-22 09:06 | Progress Note ---
Subjective - Reason for Consult Consult date: 08/22/17 Reason for consult: Psychiatry Follow-up - Chief Complaint Chief complaint: "I am okay" 66 year-old female unknown past medical history presents to the hospital via EMS for alteration in mental status. Today the patient is calm and cooperative during the assessment. Per the staff, the patient ate 50% of her breakfast yesterday. They noticed that the patient eat 75% to 100% of her meals when her family bring food for her. She does drink fluids. The patient did not answer any questions when asked. No gestures of SI/HI's. Mental Status Exam - Vital signs Last Vital Signs Temp 97.8 F 08/21/17 19:50 Pulse 81 08/21/17 21:26 Resp 18 08/21/17 19:50 BP 129/69 08/21/17 19:50 Pulse Ox 97 08/21/17 21:26 - Exam Narrative exam: MSE: Appearance: calm, cooperative Behavior: blank stare intermittently Speech: low rate and tone Mood: "okay" Affect: flat Thought Process: unable to assess Thought Content: no gestures of SI/HI's and AVH's Motor Activity: lying in bed Cognition: alert Insight: limited Judgment: limited Assessment and Plan Impression: Unspecified Psychosis with catatonia. Today the patient is calm and cooperative during the assessment. MRI of the head - Negative for acute process. DDx: R/O Mood DO Recommendation/Plan: Continue 1013 with placement pending at [facility]. Continue Ativan to 1 mg IM Q8hrs for catatonia. Monitor the patient's PO intake. Monitor patient's V/S's.
[2017-08-22] MEDS: PROTONIX PO SCH ×2 (09:28→10:00)
[2017-08-22] MEDS: LOVENOX SUB-Q SCH (09:28)
[2017-08-22] MEDS: ASPIRIN PO SCH ×2 (09:28→10:00)
--- NOTE | 2017-08-22 09:39 | Progress Note ---
Assessment and Plan Assessment and plan: Acute encephalopathy/ Unspecified Psychosis with catatonia. Psych following. Continue Zyprexa and Ativan. Head CT 08/10 negative. Brain MRI without contrast 08/16 showed non specific chronic white matter changes; no acute intracranial process is identified; mild chronic sinus disease. Pt. responded to Ativan challenge. Cont ativan prn per Psych Bacteremia. Blood cultures from 08/14 and 08/16 now showing no growth. ID following. Observe off antibiotics per ID recommendations Depression Mental health record shows a history of depression, unknown medication management Hypokalemia Replenished, Now resolved Mild protein malnutrition Nutritional support DVT prophylaxis Lovenox Disposition. D/C when psych bed available History Interval history: No new issues overnight. Pt. much improved. Sitting up in bed Hospitalist Physical - Constitutional Vitals: Temp Pulse Resp BP Pulse Ox 97.8 F 81 18 129/69 97 08/21/17 19:50 08/21/17 21:26 08/21/17 19:50 08/21/17 19:50 08/21/17 21:26 General appearance: Present: no acute distress, well-nourished - EENT Eyes: Present: PERRL, EOM intact ENT: hearing intact, clear oral mucosa, dentition normal - Neck Neck: Present: supple, normal ROM - Respiratory Respiratory effort: normal Respiratory: bilateral: CTA - Cardiovascular Rhythm: regular Heart Sounds: Present: S1 & S2. Absent: gallop, rub - Extremities Extremities: no ischemia, No edema, Full ROM - Abdominal General gastrointestinal: soft, non-tender, non-distended, normal bowel sounds - Integumentary Integumentary: Present: clear, warm, dry - Neurologic Neurologic: CNII-XII intact, moves all extremities Results - Labs CBC & Chem 7: 08/21/17 04:17 08/21/17 04:17 Labs: Laboratory Last Values WBC 6.9 K/mm3 (4.5-11.0) 08/21/17 04:17 RBC 4.39 M/mm3 (3.65-5.03) 08/21/17 04:17 Hgb 12.4 gm/dl (10.1-14.3) 08/21/17 04:17 Hct 37.4 % (30.3-42.9) 08/21/17 04:17 MCV 85 fl (79-97) 08/21/17 04:17 MCH 28 pg (28-32) 08/21/17 04:17 MCHC 33 % (30-34) 08/21/17 04:17 RDW 13.7 % (13.2-15.2) 08/21/17 04:17 Plt Count 437 K/mm3 (140-440) 08/21/17 04:17 Lymph % (Auto) 11.9 % (13.4-35.0) L 08/21/17 04:17 [place] % (Auto) 8.6 % (0.0-7.3) H 08/21/17 04:17 Eos % (Auto) 1.3 % (0.0-4.3) 08/21/17 04:17 Baso % (Auto) 0.5 % (0.0-1.8) 08/21/17 04:17 Lymph # 0.8 K/mm3 (1.2-5.4) L 08/21/17 04:17 [place] # 0.6 K/mm3 (0.0-0.8) 08/21/17 04:17 Eos # 0.1 K/mm3 (0.0-0.4) 08/21/17 04:17 Baso # 0.0 K/mm3 (0.0-0.1) 08/21/17 04:17 Add Manual Diff Complete 08/10/17 19:18 Total Counted 100 08/10/17 19:18 Seg Neutrophils % 77.7 % (40.0-70.0) H 08/21/17 04:17 Seg Neuts % (Manual) 55.0 % (40.0-70.0) 08/10/17 19:18 Band Neutrophils % 1.0 % 08/10/17 19:18 Lymphocytes % (Manual) 35.0 % (13.4-35.0) 08/10/17 19:18 Reactive Lymphs % (Man) 0 % 08/10/17 19:18 Monocytes % (Manual) 9.0 % (0.0-7.3) H 08/10/17 19:18 Eosinophils % (Manual) 0 % (0.0-4.3) 08/10/17 19:18 Basophils % (Manual) 0 % (0.0-1.8) 08/10/17 19:18 Metamyelocytes % 0 % 08/10/17 19:18 Myelocytes % 0 % 08/10/17 19:18 Promyelocytes % 0 % 08/10/17 19:18 Blast Cells % 0 % 08/10/17 19:18 Nucleated RBC % Not Reportable 08/10/17 19:18 Seg Neutrophils # 5.4 K/mm3 (1.8-7.7) 08/21/17 04:17 Seg Neutrophils # Man 2.7 K/mm3 (1.8-7.7) 08/10/17 19:18 Band Neutrophils # 0.0 K/mm3 08/10/17 19:18 Lymphocytes # (Manual) 1.7 K/mm3 (1.2-5.4) 08/10/17 19:18 Abs React Lymphs (Man) 0.0 K/mm3 08/10/17 19:18 Monocytes # (Manual) 0.4 K/mm3 (0.0-0.8) 08/10/17 19:18 Eosinophils # (Manual) 0.0 K/mm3 (0.0-0.4) 08/10/17 19:18 Basophils # (Manual) 0.0 K/mm3 (0.0-0.1) 08/10/17 19:18 Metamyelocytes # 0.0 K/mm3 08/10/17 19:18 Myelocytes # 0.0 K/mm3 08/10/17 19:18 Promyelocytes # 0.0 K/mm3 08/10/17 19:18 Blast Cells # 0.0 K/mm3 08/10/17 19:18 WBC Morphology Not Reportable 08/10/17 19:18 Hypersegmented Neuts Not Reportable 08/10/17 19:18 Hyposegmented Neuts Not Reportable 08/10/17 19:18 Hypogranular Neuts Not Reportable 08/10/17 19:18 Smudge Cells Not Reportable 08/10/17 19:18 Toxic Granulation Not Reportable 08/10/17 19:18 Toxic Vacuolation Not Reportable 08/10/17 19:18 Dohle Bodies Not Reportable 08/10/17 19:18 [place]uet Anomaly Not Reportable 08/10/17 19:18 [place] Rods Not Reportable 08/10/17 19:18 Platelet Estimate Consistent w auto 08/10/17 19:18 Clumped Platelets Not Reportable 08/10/17 19:18 Plt Clumps, EDTA Not Reportable 08/10/17 19:18 Large Platelets Not Reportable 08/10/17 19:18 Giant Platelets Not Reportable 08/10/17 19:18 Platelet Satelliting Not Reportable 08/10/17 19:18 Plt Morphology Comment Not Reportable 08/10/17 19:18 RBC Morphology Not Reportable 08/10/17 19:18 Dimorphic RBCs Not Reportable 08/10/17 19:18 Polychromasia Not Reportable 08/10/17 19:18 Hypochromasia Not Reportable 08/10/17 19:18 Poikilocytosis Not Reportable 08/10/17 19:18 Anisocytosis Not Reportable 08/10/17 19:18 Microcytosis Not Reportable 08/10/17 19:18 Macrocytosis Not Reportable 08/10/17 19:18 Spherocytes Not Reportable 08/10/17 19:18 Pappenheimer Bodies Not Reportable 08/10/17 19:18 Sickle Cells Not Reportable 08/10/17 19:18 Target Cells Not Reportable 08/10/17 19:18 Tear Drop Cells Not Reportable 08/10/17 19:18 Ovalocytes Not Reportable 08/10/17 19:18 Helmet Cells Not Reportable 08/10/17 19:18 [place] Bodies Not Reportable 08/10/17 19:18 [place] Rings Not Reportable 08/10/17 19:18 [place] Cells Not Reportable 08/10/17 19:18 Bite Cells Not Reportable 08/10/17 19:18 Crenated Cell Not Reportable 08/10/17 19:18 Elliptocytes Not Reportable 08/10/17 19:18 Acanthocytes (Spur) Not Reportable 08/10/17 19:18 Rouleaux Not Reportable 08/10/17 19:18 Hemoglobin C Crystals Not Reportable 08/10/17 19:18 Schistocytes Not Reportable 08/10/17 19:18 [place] parasites Not Reportable 08/10/17 19:18 [place] Bodies Not Reportable 08/10/17 19:18 Hem Pathologist Commnt No 08/10/17 19:18 Sodium 140 mmol/L (137-145) 08/21/17 04:17 Potassium 4.3 mmol/L (3.6-5.0) D 08/21/17 04:17 Chloride 99.9 mmol/L (98-107) 08/21/17 04:17 Carbon Dioxide 26 mmol/L (22-30) 08/21/17 04:17 Anion Gap 18 mmol/L 08/21/17 04:17 BUN 7 mg/dL (7-17) 08/21/17 04:17 Creatinine 0.6 mg/dL (0.7-1.2) L 08/21/17 04:17 Estimated GFR > 60 ml/min 08/21/17 04:17 BUN/Creatinine Ratio 12 % 08/21/17 04:17 Glucose 118 mg/dL (65-100) H 08/21/17 04:17 POC Glucose 85 (70-105) 08/14/17 18:16 Calcium 8.9 mg/dL (8.4-10.2) 08/21/17 04:17 Magnesium 2.20 mg/dL (1.7-2.3) 08/14/17 18:17 Total Bilirubin 0.50 mg/dL (0.1-1.2) 08/10/17 19:18 AST 20 units/L (5-40) 08/10/17 19:18 ALT 13 units/L (7-56) 08/10/17 19:18 Alkaline Phosphatase 67 units/L (35-129) 08/10/17 19:18 Ammonia 39.0 umol/L (25-60) 08/10/17 19:24 Total Creatine Kinase 119 units/L (30-135) 08/10/17 19:24 CK-MB (CK-2) 2.2 ng/mL (0.0-4.0) 08/10/17 19:24 CK-MB (CK-2) Rel Index 1.8 (0-4) 08/10/17 19:24 Troponin T < 0.010 ng/mL (0.00-0.029) 08/14/17 18:17 C-Reactive Protein 7.60 mg/dL (0.00-1.30) H 08/17/17 10:19 Total Protein 7.2 g/dL (6.3-8.2) 08/10/17 19:18 Albumin 3.8 g/dL (3.9-5) L 08/10/17: Albumin/Globulin Ratio 1.1 % 08/10/17: Triglycerides 90 mg/dL (2-149) 08/14/17 18: Cholesterol 170 mg/dL (50-199) 08/14/17 18: LDL Cholesterol Direct 116 mg/dL (50-130) 08/14/17 18: HDL Cholesterol 36 mg/dL (40-59) L 08/14/17 18: Cholesterol/HDL Ratio 4.72 % 08/14/17 18: TSH 2.690 mlU/mL (0.270-4.200) 08/10/17 19: Free T4 2.05 ng/dL (0.76-1.46) H 08/10/17: Urine Color Yellow (Yellow) 08/15/17 09:25 Urine Turbidity Clear (Clear) 08/15/17 09: Urine pH 7.0 (5.0-7.0) 08/15/17 09:25 Ur Specific [place] 1.008 (1.003-1.030) 08/15/17 09:25 Urine Protein <15 mg/dl mg/dL (Negative) 08/15/17 09:25 Urine Glucose (UA) Neg mg/dL (Negative) 08/15/17 09:25 Urine Ketones Tr mg/dL (Negative) 08/15/17 09:25 Urine Blood Neg (Negative) 08/15/17 09:25 Urine Nitrite Neg (Negative) 08/15/17 09:25 Urine Bilirubin Neg (Negative) 08/15/17 09:25 Urine Urobilinogen < 2.0 mg/dL (<2.0) 08/15/17 09:25 Ur Leukocyte Esterase Tr (Negative) 08/15/17 09:25 Urine WBC (Auto) 1.0 /HPF (0.0-6.0) 08/15/17 09:25 Urine RBC (Auto) 5.0 /HPF (0.0-6.0) 08/15/17 09:25 Urine Bacteria (Auto) 1+ /HPF (Negative) 08/15/17 09:25 Urine Mucus Few /HPF 08/15/17 09:25 Salicylates < 0.3 mg/dL (2.8-20.0) L 08/10/17 19:24 Urine Opiates Screen Presumptive negative 08/10/17 20:42 Urine Methadone Screen Presumptive negative 08/10/17 20:42 Acetaminophen < 15.0 ug/mL (10.0-30.0) 08/10/17 19:24 Ur Barbiturates Screen Presumptive negative 08/10/17 20:42 Ur Phencyclidine Scrn Presumptive negative 08/10/17 20:42 Ur Amphetamines Screen Presumptive negative 08/10/17 20:42 U Benzodiazepines Scrn Presumptive negative 08/10/17 20:42 Urine Cocaine Screen Presumptive negative 08/10/17 20:42 U Marijuana (THC) Screen Presumptive negative 08/10/17 20:42 Drugs of Abuse Note Disclamer 08/10/17 20:42 Plasma/Serum Alcohol < 0.01 % (0-0.07) 08/10/17 19:18
--- NOTE | 2017-08-23 08:54 | Progress Note ---
Assessment and Plan Assessment and plan: Acute encephalopathy/ Unspecified Psychosis with catatonia. Psych following. Continue Zyprexa and Ativan. Head CT 08/10 negative. Brain MRI without contrast 08/16 showed non specific chronic white matter changes; no acute intracranial process is identified; mild chronic sinus disease. Pt. responded to Ativan challenge. Cont ativan prn per Psych Bacteremia. Blood cultures from 08/14 ([employer]--prob contaminant) and 08/16 now showing no growth. ID following. Observe off antibiotics per ID recommendations Depression Mental health record shows a history of depression, unknown medication management Hypokalemia Replenished, Now resolved Mild protein malnutrition Nutritional support, encourage po intake DVT prophylaxis Lovenox Disposition. D/C when psych bed available History Interval history: No new issues overnight. Pt. much improved. Hospitalist Physical - Constitutional Vitals: Temp Pulse Resp BP Pulse Ox 98.2 F 85 18 125/65 99 08/23/17 07:52 08/23/17 08:40 08/23/17 08:40 08/23/17 07:52 08/23/17 08:40 General appearance: Present: no acute distress, well-nourished - EENT Eyes: Present: PERRL, EOM intact ENT: hearing intact, clear oral mucosa, dentition normal - Neck Neck: Present: supple, normal ROM - Respiratory Respiratory effort: normal Respiratory: bilateral: CTA - Cardiovascular Rhythm: regular Heart Sounds: Present: S1 & S2. Absent: gallop, rub - Extremities Extremities: no ischemia, No edema, Full ROM - Abdominal General gastrointestinal: soft, non-tender, non-distended, normal bowel sounds - Integumentary Integumentary: Present: clear, warm, dry - Neurologic Neurologic: CNII-XII intact, moves all extremities Results - Labs CBC & Chem 7: 08/21/17 04:17 08/21/17 04:17 Labs: Laboratory Last Values WBC 6.9 K/mm3 (4.5-11.0) 08/21/17 04:17 RBC 4.39 M/mm3 (3.65-5.03) 08/21/17 04:17 Hgb 12.4 gm/dl (10.1-14.3) 08/21/17 04:17 Hct 37.4 % (30.3-42.9) 08/21/17 04:17 MCV 85 fl (79-97) 08/21/17 04:17 MCH 28 pg (28-32) 08/21/17 04:17 MCHC 33 % (30-34) 08/21/17 04:17 RDW 13.7 % (13.2-15.2) 08/21/17 04:17 Plt Count 437 K/mm3 (140-440) 08/21/17 04:17 Lymph % (Auto) 11.9 % (13.4-35.0) L 08/21/17 04:17 [place] % (Auto) 8.6 % (0.0-7.3) H 08/21/17 04:17 Eos % (Auto) 1.3 % (0.0-4.3) 08/21/17 04:17 Baso % (Auto) 0.5 % (0.0-1.8) 08/21/17 04:17 Lymph # 0.8 K/mm3 (1.2-5.4) L 08/21/17 04:17 [place] # 0.6 K/mm3 (0.0-0.8) 08/21/17 04:17 Eos # 0.1 K/mm3 (0.0-0.4) 08/21/17 04:17 Baso # 0.0 K/mm3 (0.0-0.1) 08/21/17 04:17 Add Manual Diff Complete 08/10/17 19:18 Total Counted 100 08/10/17 19:18 Seg Neutrophils % 77.7 % (40.0-70.0) H 08/21/17 04:17 Seg Neuts % (Manual) 55.0 % (40.0-70.0) 08/10/17 19:18 Band Neutrophils % 1.0 % 08/10/17 19:18 Lymphocytes % (Manual) 35.0 % (13.4-35.0) 08/10/17 19:18 Reactive Lymphs % (Man) 0 % 08/10/17 19:18 Monocytes % (Manual) 9.0 % (0.0-7.3) H 08/10/17 19:18 Eosinophils % (Manual) 0 % (0.0-4.3) 08/10/17 19:18 Basophils % (Manual) 0 % (0.0-1.8) 08/10/17 19:18 Metamyelocytes % 0 % 08/10/17 19:18 Myelocytes % 0 % 08/10/17 19:18 Promyelocytes % 0 % 08/10/17 19:18 Blast Cells % 0 % 08/10/17 19:18 Nucleated RBC % Not Reportable 08/10/17 19:18 Seg Neutrophils # 5.4 K/mm3 (1.8-7.7) 08/21/17 04:17 Seg Neutrophils # Man 2.7 K/mm3 (1.8-7.7) 08/10/17 19:18 Band Neutrophils # 0.0 K/mm3 08/10/17 19:18 Lymphocytes # (Manual) 1.7 K/mm3 (1.2-5.4) 08/10/17 19:18 Abs React Lymphs (Man) 0.0 K/mm3 08/10/17 19:18 Monocytes # (Manual) 0.4 K/mm3 (0.0-0.8) 08/10/17 19:18 Eosinophils # (Manual) 0.0 K/mm3 (0.0-0.4) 08/10/17 19:18 Basophils # (Manual) 0.0 K/mm3 (0.0-0.1) 08/10/17 19:18 Metamyelocytes # 0.0 K/mm3 08/10/17 19:18 Myelocytes # 0.0 K/mm3 08/10/17 19:18 Promyelocytes # 0.0 K/mm3 08/10/17 19:18 Blast Cells # 0.0 K/mm3 08/10/17 19:18 WBC Morphology Not Reportable 08/10/17 19:18 Hypersegmented Neuts Not Reportable 08/10/17 19:18 Hyposegmented Neuts Not Reportable 08/10/17 19:18 Hypogranular Neuts Not Reportable 08/10/17 19:18 Smudge Cells Not Reportable 08/10/17 19:18 Toxic Granulation Not Reportable 08/10/17 19:18 Toxic Vacuolation Not Reportable 08/10/17 19:18 Dohle Bodies Not Reportable 08/10/17 19:18 Pelger-Huet Anomaly Not Reportable 08/10/17 19:18 Comfort Rods Not Reportable 02/13/18 19:18 Platelet Estimate Consistent w auto 02/13/18 19:18 Clumped Platelets Not Reportable 08/10/17 19:18 Plt Clumps, EDTA Not Reportable 08/10/17 19:18 Large Platelets Not Reportable 08/10/17 19:18 Giant Platelets Not Reportable 08/10/17 19:18 Platelet Satelliting Not Reportable 08/10/17 19:18 Plt Morphology Comment Not Reportable 08/10/17 19:18 RBC Morphology Not Reportable 08/10/17 19:18 Dimorphic RBCs Not Reportable 08/10/17 19:18 Polychromasia Not Reportable 08/10/17 19:18 Hypochromasia Not Reportable 08/10/17 19:18 Poikilocytosis Not Reportable 08/10/17 19:18 Anisocytosis Not Reportable 08/10/17 19:18 Microcytosis Not Reportable 08/10/17 19:18 Macrocytosis Not Reportable 08/10/17 19:18 Spherocytes Not Reportable 08/10/17 19:18 Pappenheimer Bodies Not Reportable 08/10/17 19:18 Sickle Cells Not Reportable 08/10/17 19:18 Target Cells Not Reportable 08/10/17 19:18 Tear Drop Cells Not Reportable 08/10/17 19:18 Ovalocytes Not Reportable 08/10/17 19:18 Helmet Cells Not Reportable 08/10/17 19:18 [place] Bodies Not Reportable 08/10/17 19:18 [place] Rings Not Reportable 08/10/17 19:18 Nallely Cells Not Reportable 08/10/17 19:18 Bite Cells Not Reportable 08/10/17 19:18 Crenated Cell Not Reportable 08/10/17 19:18 Elliptocytes Not Reportable 08/10/17 19:18 Acanthocytes (Spur) Not Reportable 08/10/17 19:18 Rouleaux Not Reportable 08/10/17 19:18 Hemoglobin C Crystals Not Reportable 08/10/17 19:18 Schistocytes Not Reportable 08/10/17 19:18 Malaria parasites Not Reportable 08/10/17 19:18 Joaquín Bodies Not Reportable 08/10/17 19:18 Hem Pathologist Commnt No 08/10/17 19:18 Sodium 140 mmol/L (137-145) 08/21/17 04:17 Potassium 4.3 mmol/L (3.6-5.0) D 08/21/17 04:17 Chloride 99.9 mmol/L (98-107) 08/21/17 04:17 Carbon Dioxide 26 mmol/L (22-30) 08/21/17 04:17 Anion Gap 18 mmol/L 08/21/17 04:17 BUN 7 mg/dL (7-17) 08/21/17 04:17 Creatinine 0.6 mg/dL (0.7-1.2) L 08/21/17 04:17 Estimated GFR > 60 ml/min 08/21/17 04:17 BUN/Creatinine Ratio 12 % 08/21/17 04:17 Glucose 118 mg/dL (65-100) H 08/21/17 04:17 POC Glucose 85 (70-105) 08/14/17 18:16 Calcium 8.9 mg/dL (8.4-10.2) 08/21/17 04:17 Magnesium 2.20 mg/dL (1.7-2.3) 08/14/17 18:17 Total Bilirubin 0.50 mg/dL (0.1-1.2) 08/10/17 19:18 AST 20 units/L (5-40) 08/10/17 19:18 ALT 13 units/L (7-56) 08/10/17 19:18 Alkaline Phosphatase 67 units/L (35-129) 08/10/17 19:18 Ammonia 39.0 umol/L (25-60) 08/10/17 19:24 Total Creatine Kinase 119 units/L (30-135) 08/10/17 19:24 CK-MB (CK-2) 2.2 ng/mL (0.0-4.0) 08/10/17 19:24 CK-MB (CK-2) Rel Index 1.8 (0-4) 08/10/17 19:24 Troponin T < 0.010 ng/mL (0.00-0.029) 08/14/17 18:17 C-Reactive Protein 7.60 mg/dL (0.00-1.30) H 08/17/17 10:19 Total Protein 7.2 g/dL (6.3-8.2) 08/10/17 19:18 Albumin 3.8 g/dL (3.9-5) L 08/10/17 19:18 Albumin/Globulin Ratio 1.1 % 08/10/17 19:18 Triglycerides 90 mg/dL (2-149) 08/14/17 18:17 Cholesterol 170 mg/dL (50-199) 08/14/17 18:17 LDL Cholesterol Direct 116 mg/dL (50-130) 08/14/17 18:17 HDL Cholesterol 36 mg/dL (40-59) L 08/14/17 18:17 Cholesterol/HDL Ratio 4.72 % 08/14/17 18:17 TSH 2.690 mlU/mL (0.270-4.200) 08/10/17 19:24 Free T4 2.05 ng/dL (0.76-1.46) H 08/10/17 19:24 Urine Color Yellow (Yellow) 08/15/17 09:25 Urine Turbidity Clear (Clear) 08/15/17 09:25 Urine pH 7.0 (5.0-7.0) 08/15/17 09:25 Ur Specific [place] 1.008 (1.003-1.030) 08/15/17 09:25 Urine Protein <15 mg/dl mg/dL (Negative) 08/15/17 09:25 Urine Glucose (UA) Neg mg/dL (Negative) 08/15/17 09:25 Urine Ketones Tr mg/dL (Negative) 08/15/17 09:25 Urine Blood Neg (Negative) 08/15/17 09:25 Urine Nitrite Neg (Negative) 08/15/17 09:25 Urine Bilirubin Neg (Negative) 08/15/17 09:25 Urine Urobilinogen < 2.0 mg/dL (<2.0) 08/15/17 09:25 Ur Leukocyte Esterase Tr (Negative) 08/15/17 09:25 Urine WBC (Auto) 1.0 /HPF (0.0-6.0) 08/15/17 09:25 Urine RBC (Auto) 5.0 /HPF (0.0-6.0) 08/15/17 09:25 Urine Bacteria (Auto) 1+ /HPF (Negative) 08/15/17 09:25 Urine Mucus Few /HPF 08/15/17 09:25 Salicylates < 0.3 mg/dL (2.8-20.0) L 08/10/17 19:24 Urine Opiates Screen Presumptive negative 08/10/17 20:42 Urine Methadone Screen Presumptive negative 08/10/17 20:42 Acetaminophen < 15.0 ug/mL (10.0-30.0) 08/10/17 19:24 Ur Barbiturates Screen Presumptive negative 08/10/17 20:42 Ur Phencyclidine Scrn Presumptive negative 08/10/17 20:42 Ur Amphetamines Screen Presumptive negative 08/10/17 20:42 U Benzodiazepines Scrn Presumptive negative 08/10/17 20:42 Urine Cocaine Screen Presumptive negative 08/10/17 20:42 U Marijuana (THC) Screen Presumptive negative 08/10/17 20:42 Drugs of Abuse Note Disclamer 08/10/17 20:42 Plasma/Serum Alcohol < 0.01 % (0-0.07) 08/10/17 19:18
[2017-08-23] MEDS: D5/0.45NS 1,000 ML IV SCH (10:05)
[2017-08-23] MEDS: PROTONIX PO SCH (10:27)
[2017-08-23] MEDS: ASPIRIN PO SCH (10:27)
[2017-08-23] MEDS: LOVENOX SUB-Q SCH (10:27)
--- NOTE | 2017-08-23 10:36 | Progress Note ---
Subjective - Reason for Consult Consult date: 08/23/17 Reason for consult: Psychiatry Follow-up - Chief Complaint Chief complaint: "Senait" 66 year-old female unknown past medical history presents to the hospital via EMS for alteration in mental status. Today the patient is calm during the assessment. She does not say much during the interview when asked questions. She was completing her ADL's (washing up) when I arrived to her room. She did state that she will decide to eat her breakfast once she finish cleaning herself up. Per her assigned RN, the patient ate her dinner that was brought in by her family last night. Also, per her assigned RN, the patient gestured that medication maybe in her food that is brought from the cafeteria. The patient denies SI/HI's and AVH's. Mental Status Exam - Vital signs Last Vital Signs Temp 98.2 F 08/23/17 07:52 Pulse 85 08/23/17 08:40 Resp 18 08/23/17 08:40 BP 125/65 08/23/17 07:52 Pulse Ox 99 08/23/17 08:40 - Exam Narrative exam: MSE: Appearance: calm Behavior: regular eye contact Speech: low rate and tone Mood: "okay" Affect: flat Thought Process: circumstantial Thought Content: denies of SI/HI's and AVH's, possible paranoia Motor Activity: ambulatory Cognition: alert, unable to assess her orientation, the patient does not say much during the interview Insight: limited Judgment: limited Assessment and Plan Impression: Unspecified Psychosis with catatonia. Today the patient is calm and cooperative during the assessment. MRI of the head - Negative for acute process. DDx: R/O Mood DO Recommendation/Plan: Continue 1013 with placement pending at [facility]. Modify Ativan to 1 mg PO TID for catatonia. Monitor the patient's PO intake. Monitor patient's V/S's.
[2017-08-23] MEDS: ATIVAN IM SCH (13:25)
[2017-08-23] MEDS: ATIVAN PO SCH (20:10)
[2017-08-24 07:29] LABS: BUN/Creatinine Ratio 13; Blood Urea Nitrogen 8 mg/dL (7-17); Calcium 8.9 mg/dL (8.4-10.2); Hemolysis Index 14
[2017-08-24 07:30] LABS: Basophils % (Auto) 0.6 % (0.0-1.8); Eosinophils # (Auto) 0.1 K/mm3 (0.0-0.4); Eosinophils % (Auto) 2.6 % (0.0-4.3); Hematocrit 36.7 % (30.3-42.9); Hemoglobin 12.1 gm/dl (10.1-14.3); Lymphocytes # (Auto) 1.4 K/mm3 (1.2-5.4); Lymphocytes % (Auto) 25.7 % (13.4-35.0); Mean Corpuscular HGB Conc 33 % (30-34); Mean Corpuscular Hemoglobin 28 pg (28-32); Mean Corpuscular Volume 86 fl (79-97); Monocytes # (Auto) 0.8 K/mm3 (0.0-0.8); Monocytes % (Auto) 13.8 % (0.0-7.3); Platelet Count 413 K/mm3 (140-440); Red Blood Count 4.27 M/mm3 (3.65-5.03); Red Cell Distribution Width 13.7 % (13.2-15.2)
[2017-08-24 09:18] VITALS: BP 122/75
[2017-08-24] MEDS: PROTONIX PO SCH (09:51)
[2017-08-24] MEDS: ASPIRIN PO SCH (09:51)
[2017-08-24] MEDS: LOVENOX SUB-Q SCH (09:52)
[2017-08-24] MEDS: ATIVAN PO SCH ×2 (09:52→13:39)
--- NOTE | 2017-08-24 10:33 | Progress Note ---
Subjective - Reason for Consult Consult date: 08/24/17 Reason for consult: Psychiatry Follow-up - Chief Complaint Chief complaint: "Good morning" 66 year-old female unknown past medical history presents to the hospital via EMS for alteration in mental status. Today the patient is calm and cooperative during the assessment. She was the first time the patient had a lucid conversation with me. She stated that she has taking "some type of medications" for a psychiatric problem. She could not name her dx or ID medications when asked. She did state that she would like alternative treatment, possibly herbals. She denies SI/HI's and AVH's. Per the sitter, she stated that the patient took her medications and ate 100% of her meal this morning. No indications of side effects of her medication. Mental Status Exam - Vital signs Last Vital Signs Temp 98.2 F 08/24/17 07:58 Pulse 84 08/24/17 07:58 Resp 18 08/24/17 07:58 BP 122/75 08/24/17 07:58 Pulse Ox 99 08/24/17 07:58 - Exam Narrative exam: MSE: Appearance: calm, cooperative Behavior: regular eye contact Speech: low rate and tone Mood: "okay" Affect: flat Thought Process: circumstantial Thought Content: denies of SI/HI's and AVH's Motor Activity: ambulatory Cognition: A/O x3 Insight: variable Judgment: variable Assessment and Plan Impression: Unspecified Psychosis with catatonia. Today the patient is calm and cooperative during the assessment. MRI of the head - Negative for acute process. DDx: R/O Mood DO Recommendation/Plan: Continue 1013 with placement at [facility] today. Continue Ativan 1 mg PO TID for catatonia. Monitor the patient's PO intake. Monitor patient's V/S's.
--- NOTE | 2017-08-24 13:40 | Discharge Summary ---
Providers - Providers Date of Admission: 08/10/17 22:27 Date of discharge: 08/24/17 Attending physician: MARIA D TANNER 08/11/17 09:28 psychiatry consult [Consult to Mental Health] [CONS] Routine Reason For Exam: catatonia Place consult to:: psychiatry Notified:: Gladys Phone number called:: [phone] Was contact made?: Yes If yes, spoke with:: Gladys Time called:: 08:35 08/14/17 17:15 Consult to Physician [CONS] Routine Consulting Provider: ANASTASIYA MAJOR Reason For Exam: comastose Place consult to:: Neurology Notified:: yes Phone number called:: [phone] If yes, spoke with:: jessie Bledsoe called:: 17:29 Comment:: elia 08/14/17 17:29 Consult to Dietitian/Nutrition [CONS] Routine Physician Instructions: Reason For Exam: Reason for Consult: Poor oral intake 08/16/17 13:34 Consult to Physician [CONS] Routine Consulting Provider: ROCKY BELTRAN Reason For Exam: Sepsis, blood culture positive Place consult to:: Notified:: Phone number called:: [phone] Was contact made?: Yes If yes, spoke with:: Time called:: 13:15 Comment:: SIMON 08/19/17 08:08 Speech Therapy Evaluation and Treat [CONS] Routine Reason For Exam: swallow eval Primary care physician: LYNNETTE MORALES MD Hospitalization Condition: Stable Hospital course: Acute encephalopathy/ Unspecified Psychosis with catatonia. Psych following. Continue Zyprexa and Ativan. Head CT 08/10 negative. Brain MRI without contrast 08/16 showed non specific chronic white matter changes; no acute intracranial process is identified; mild chronic sinus disease. Pt. responded to Ativan challenge. Cont ativan prn per Psych Bacteremia. Blood cultures from 08/14 ([employer]IG[employer]--prob contaminant) and 08/16 now showing no growth. ID following. Observe off antibiotics per ID recommendations Depression Mental health record shows a history of depression, unknown medication management Hypokalemia Replenished, Now resolved Mild protein malnutrition Nutritional support, encourage po intake DVT prophylaxis Lovenox Disposition. D/C when psych bed available Disposition: DC/TX-65 PSY HOSP/PSY UNIT Time spent for discharge: 32 min Core Measure Documentation - Palliative Care Palliative Care/ Comfort Measures: Not Applicable - Core Measures Any of the following diagnoses?: none - VTE Discharge Requirements Deep Vein Thrombosis/Pulmonary Embolism Present on Admission: No Has pt received <5 days of overlap therapy or INR<2.0: No Anticoagulant overlap therapy prescribed at discharge: No Contraindication No Overlap Therapy order at DC: Not Indicated Exam - Physical Exam Narrative exam: GEN: WDWN, NAD, AWAKE, ALERT, ORIENTATED x 3 HEENT: NCAT, EOMI, PERRL, OP Clear NECK: supple, no adenopathy, no thyromegaly, no JVD CVS/HEART: RRR, NORMAL S1S2, pulses present bilaterally CHEST/LUNGS: CTA B, Symmetrical chest expansion, good air entry bilaterally GI/Abdomen: soft, NTND, good bowel sounds, no guarding or rebound /Bladder: no suprapubic tenderness, no CVA or paraspinal tenderness EXT/Skin: no c/c/e, no obvious rash MSK: FROM x 4 Neuro: CN 2-12 grossly intact, no new focal deficits Psych: withdrawn - Constitutional Vitals: Temp Pulse Resp BP Pulse Ox 98.2 F 84 18 122/75 99 08/24/17 07:58 08/24/17 10:00 08/24/17 10:00 08/24/17 07:58 08/24/17 10:00 Plan Activity: other (no strenous activity until cleared by pcp) Diet: regular Follow up with: PRIMARY CARE, [Referring] - 3-5 Days Prescriptions: LORazepam [Ativan] 1 mg PO TID #90 tablet
== END 2017-08-24 15:32 | DRG 70 ==
LOC: ED 17:07 → 2B-ACE 22:27
PROVIDERS: ADMIT Internal Medicine; ATTEND Internal Medicine
PROC: 3E0234Z Introduction of Serum, Toxoid and Vaccine into Muscle, Percutaneous Approach (ICD-10-PCS; principal; 2017-08-10)
DX: G93.40 Encephalopathy, unspecified (principal); A41.9 Sepsis, unspecified organism; F20.2 Catatonic schizophrenia; E44.1 Mild protein-calorie malnutrition; E87.6 Hypokalemia; F29 Unspecified psychosis not due to a substance or known physiological condition; F32.9 Major depressive disorder, single episode, unspecified; R62.7 Adult failure to thrive; Z68.22 Body mass index [BMI] 22.0-22.9, adult; Z23 Encounter for immunization; Z82.49 Family history of ischemic heart disease and other diseases of the circulatory system
CPT/HCPCS: 36415; 70450; 70551; 71045; 80048; 80053; 80061; 80307; 80320; 81001; 82140; 82550; 82553; 82962; 83735; 84439; 84443; 84484; 85007; 85025; 86140; 87040; 90686; 90732; 93005; 93010; G0480; G8996-GN; G8997-GN; J1650; J2060; J2405; J2543; J3480; J7030; J7050